=== PATIENT | female | born 1935 | race Caucasian/White ===

== ENCOUNTER 2023-08-20 20:06 | Inpatient (IN) | payer MEDICARE, BC, SELFPAY ==
[2023-08-20] VITALS (10 sets, daily range): BP systolic 54–143; BP diastolic 27–108; BMI 20.6
[2023-08-20 15:30] LABS: % Basophils 0.6 % (0-2); % Eosinophils 0.6 % (0-6); % Immature Granulocytes 0.4 % (0-0.5); % Lymphocytes 10.2 % (20.5-51.1); % Monocytes 7.5 % (1.7-9.3); % Neutrophils 80.7 % (42.2-75.2); Absolute Basophils 0.1 10^3/uL (0-0.2); Absolute Eosinophils 0.1 10^3/uL (0-0.7); Absolute Immature Granulocytes 0.1 10^3/uL (0-0.05); Absolute Lymphocytes 1.2 10^3/uL (1.2-3.4); Absolute Monocytes 0.9 10^3/uL (0.1-0.6); Absolute Neutrophils 9.4 10^3/uL (1.4-6.5); Hematocrit 26.7 % (37.0-47.0); Hemoglobin 8.6 g/dL (12.0-16.0); Mean Corp Hgb Conc. 32.2 g/dL (33.0-37.0); Mean Corpuscular Hgb 25.7 pg (27.0-31.0); Mean Corpuscular Volume 79.7 fL (81.0-99.0); Nucleated Red Blood Cells % 0 %; Red Blood Cell Count 3.35 10^6/uL (4.20-5.40); White Blood Cell Count 11.7 10^3/uL (4.8-10.8)
[2023-08-20 15:40] LABS: ALT (SGPT) 16 U/L (0-35); AST (SGOT) 19 U/L (14-36); Albumin 2.9 g/dl (3.5-5.0); Alkaline Phosphatase 112 U/L (38-126); Blood Urea Nitrogen 26 mg/dl (7-17); Carbon Dioxide 30 mmol/L (22-30); Chloride 103 mmol/L (98-107); Estimated Creatinine Clearance 37 ml/min; Glucose 121 mg/dl (70-99); Potassium 3.8 mmol/L (3.5-5.1); Sodium 135 mmol/L (135-145); Total Bilirubin 0.4 mg/dl (0.2-1.3); Total Protein 5.4 g/dl (6.3-8.2); eGFR 54.53
[2023-08-20 16:09] LABS: Lactic Acid 1.6 mmol/L (0.7-2.0)
--- NOTE | 2023-08-20 16:22 | ED.GENMED ---
History of Present Illness
General
Chief Complaint: Breathing Problem
Source: family
Exam Limitations: dementia
Time Seen by Provider: 08/20/23 16:08
Nursing documentation reviewed up to this point in time: agreed with
Travel History
Have you had any contact with someone who has COVID-19?: Unable to Answer
Do you have any symptoms of coronavirus? Fever > 100 degrees, chills, cough, shortness of breath, sore throat, loss of taste or smell, muscle aches, or headache?: Unable to Answer
History of Present Illness
History of Present Illness:
PT IS A 88 Y/O f WITH H/O severe alzheimers
daughter is primary historian
afib not anticoagulated
stroke
h/o aspiration pna
lung ca on keytruda
here with 2-3 days dec mental status, sleeping more, and now coughing more todya
pt has a chroni ccough from the keytruda
but last night sounded rattly in her chest
pt is not able to give any history
she also has h/o chronic constipation and had dark stool today
fever to 102 this am treated with tylenol
Past History
Past History
ED Past Medical History: CVA, GERD, HTN, Hypercholesterolemia, Psychiatric (Anxiety, Depression, ) and Other (Alzheimer's, PNA, Long QT, UTI, Anemia, )
ED Past Surgical History: Bowel resection (for Obstruction. Then again for adhesions,), Gynecological (OOpherectomy), Orthopedic (Left wrist ORIF 2017, Back surgery, Left meniscus repair, ), Tonsilectomy and Other (Left eye surgery, )
Social History
Tobacco: Former smoker
Alcohol: None
Drug: None
Personal:
Living: with family
Employment: Other
Family History
Family History: Hypertension
Review of Systems
Review of Systems
Allergies reviewed?: Yes
Unable to obtain full review of systems at this time due to: dementia
All Other Systems: Not applicable
Phy Exam
Physical Exam
Physical Exam:
GENERAL: Alert , in no apparent distress, pt is pulling at her sheets, seems globally confused;
HEAD: NCAT
EYE: pupils equal and reactive, no nystagmus, photophobia
NECK: Supple,full rom, nontender
ENT: o/p clr, mmm.
CARDIAC: Regular rate and rhythm . no edema
LUNGS: diminished, mild cough, no wheezing
ABDOMEN: Soft, without focal tenderness, no r/g, no cvat
black stool HEME POS
NEUROLOGICAL: awake and alert x 1, moving all extremites;
SKIN: Warm and dry, stage I decub sacral
MUSCULOSKELETAL: No edema, well perfused.
PSYCH: confused, unable toanswer questions; dementia
Scores
Heart Failure Risk
Heart Failure Risk Score: Not Applicable
Course
Orders/Labs/Results
Orders:
Orders
08/20/23 15:19
Complete Blood Count/With Diff Urgent
Comprehensive Metabolic Panel Urgent
Blood Culture Q30M
MONSERRAT Source: Blood/Venous
Specimen Description:
Comment: FROM 2 SEPARATE SITES
08/20/23 15:35
Lactic Acid Q4H
Comment: ON ICE, CANCEL 2ND ORDER IF FIRST LACTIC ACID LEVEL <2
Blood Culture Q30M
MONSERRAT Source: Blood/Venous
Specimen Description:
Comment: FROM 2 SEPARATE SITES
08/20/23 16:21
Acetaminophen [Tylenol Suspension] 500 mg PO NOW STA
08/20/23 16:23
CR Chest - 2 Views Urgent
Comment:
Reason For Exam: FEVER, COUGH, HYPOXIC
08/20/23 16:34
COVID-19 Antigen Urgent
Source: Nasal Swab
Influenza A+B Rapid Molecular Urgent
MONSERRAT Source: Nasal Swab
Specimen Description:
08/20/23 16:45
Pantoprazole 80 mg/100 ml Nss [Protonix] 80 mg in 100 ml IV Q10H
08/20/23 17:48
Azithromycin 500 mg/250 ml [Zithromax Infusion] 500 mg in 250 ml IV NOW
CefTRIAXone [Rocephin] 1,000 mg IV NOW STA
08/20/23 17:51
Urinalysis Reflex To Culture Urgent
Date Specimen was Collected: 08/20/23
Time Specimen was Collected: 17:35
Urine Microscopic Reflex Cult Urgent
Urine Culture Urgent
MONSERRAT Source: U
Specimen Description:
Date Specimen was Collected: 08/20/23
Time Specimen was Collected: 17:35
Abnormal Lab Results
08/20/23 08/20/23
15:19 17:51
WBC 11.7 H 10^3/uL
(4.8-10.8)
RBC 3.35 L 10^6/uL
(4.20-5.40)
Hgb 8.6 L g/dL
(12.0-16.0)
Hct 26.7 L %
(37.0-47.0)
MCV 79.7 L fL
(81.0-99.0)
MCH 25.7 L pg
(27.0-31.0)
MCHC 32.2 L g/dL
(33.0-37.0)
RDW 16.0 H %
(11.5-14.5)
Abs Immat Gran (auto) 0.1 H 10^3/uL
(0-0.05)
Absolute Neuts (auto) 9.4 H 10^3/uL
(1.4-6.5)
Absolute Monos (auto) 0.9 H 10^3/uL
(0.1-0.6)
Neutrophils % 80.7 H %
(42.2-75.2)
Lymphocytes % 10.2 L %
(20.5-51.1)
BUN 26 H mg/dl
(7-17)
Glucose 121 H mg/dl
(70-99)
Calcium 8.0 L mg/dl
(8.4-10.2)
Total Protein 5.4 L g/dl
(6.3-8.2)
Albumin 2.9 L g/dl
(3.5-5.0)
Ur Occult Blood Reflex Trace A
(Negative)
Urine Bilirubin 1+ A
(Negative)
Leukocyte Esterase Rfl 1+ A
(Negative)
Urine WBC (Reflex) 11-15 A /HPF
(0-5)
Urine Bacteria (Reflex) Few A
(Negative)
08/20/23 15:19
08/20/23 15:19
Vital Signs
Initial and Last Documented VS:
Initial Vital Signs
Temp Pulse Resp BP Pulse Ox
100.9 F H 66 21 110/45 90
08/20/23 15:09 08/20/23 15:09 08/20/23 15:09 08/20/23 15:09 08/20/23 15:09
Last Documented Vital Signs
Temp Pulse Resp BP Pulse Ox
100.9 F H 66 21 110/45 90
08/20/23 15:09 08/20/23 15:09 08/20/23 15:09 08/20/23 15:09 08/20/23 15:09
MDM/Problems Addressed
Differential Diagnosis Includes:
pneumonia, gi bleeding, flu, covid
MDM/Problems Addressed:
88 y/o F from home with daughter
pt has h/o aspiration pna
has had trouble with certain foods sometimes
but still eats a full diet
she was sleeping more the past few days then today had a worsneing acute on chronic cough with fever 102
dark stool
here pt is requiring o2, she had pulse ox at summer e87% on RA and doesn't usually use O2
is chronically demented
awake
occ cough
lungs dimiinshed
and rectal heme pos dark stool, 3 gram drop hg over the past few months and elevated BUN
will admit
*Critical Care Note
Total Time (30-74mins, 75-104mins- exclusive of procedures): Not Applicable
ED Attending Note
-
Portions of this chart may have been created with voice recognition software.� Occasional wrong word or��sound alike� substitutions may have occurred due to the inherent limitations of voice recognition software.
Discharge Plan
Departure
Patient Disposition: Admit
Date of Disposition: 08/20/23
Time of Disposition: 17:32
Admit to: Med/Surg
Presentation/result/management discussed w/ accepting MD/DO: Hospitalist
Condition: Fair
Covid-19: Negative COVID-19
Discharge Problem:
Anemia, Fever, GI bleed
Prescriptions:
No Action
quetiapine 25 mg Tablet
25 mg PO NOON
atorvastatin 40 mg Tablet
40 mg PO HS
amiodarone 200 mg Tablet
200 mg PO DAILY
metoprolol succinate 50 mg Tablet Extended Release 24 Hr
50 mg PO BID
sennosides-docusate sodium [Senna Plus] 8.6-50 mg Tablet
2 tab-cap PO BIDPRN PRN (Reason: Constipation)
methenamine hippurate 1 gram Tablet
1 g PO BID
pantoprazole 40 mg Tablet,Delayed Release (Dr/Ec)
40 mg PO BID
buspirone 10 mg Tablet
10 mg PO BID
gabapentin 300 mg Capsule
300 mg PO HS
aspirin 81 mg Tablet,Chewable
81 mg PO DAILY
bisacodyl [Gentle Laxative (bisacodyl)] 5 mg Tablet,Delayed Release (Dr/Ec)
5 mg PO BID
docusate sodium 100 mg Tablet
100 mg PO BID
qxnjzxxysgli-pesurxxt-hsrafb Tablet
1 tab PO DAILY
memantine 10 mg Tablet
10 mg PO BID
duloxetine 30 mg Capsule,Delayed Release(Dr/Ec)
30 mg PO BID
omega 0-nox-crg-fish oil [Fish Oil] 1,000 mg (120 mg-180 mg) Capsule
1 cap PO DAILY
melatonin 10 mg Tablet
20 mg PO DAILY
Caltrate 600 plus D 600 mg-20 mcg (800 unit) Tablet,Chewable
1 tab PO DAILY
PreserVision AREDS-2 250-90-40-1 mg Tablet,Chewable
1 tab PO BID
quetiapine 25 mg Tablet
50 mg PO HS Qty: 30 0RF
amlodipine 10 mg Tablet
10 mg PO DAILY Qty: 30 0RF
polyethylene glycol 3350 [HealthyLax] 17 gram Powder In Packet
17 g PO BID Qty: 30 0RF
Referrals:
Ulices Kong MD, Resident [Family Provider] -
Interventions
Interventions:
*Risk Screen - Suicide Last Done: 08/20/23 15:09
*General Assessment Last Done: 08/20/23 15:09
*Neglect/Abuse Screening Last Done: 08/20/23 15:09
ED- Fall Risk Assessment Last Done: 08/20/23 15:15
*ED COVID-19 Vaccine History Last Done: 08/20/23 15:09
ED- Cardiac Assessment Last Done: 08/20/23 16:22
ED- Pulmonary Assessment Last Done: 08/20/23 16:22
[2023-08-20] MEDS: TYLENOL SUSPENSION 500 MG PO (16:25)
[2023-08-20] MEDS: PROTONIX 100 IV (17:05)
[2023-08-20 17:20] LABS: COVID-19 Antigen Negative (Negative)
[2023-08-20 18:05] LABS: Urine Albumin Trace (Neg - Trace); Urine Bilirubin 1+ (Negative); Urine Character Clear (Clear); Urine Color Yellow; Urine Glucose Negative (Negative); Urine Ketone Negative (Negative); Urine Leukocyte 1+ (Negative); Urine Nitrite Negative (Negative); Urine Occult Blood Trace (Negative); Urine Specific Gravity 1.015 (<1.030); Urine Urobilinogen Negative (Neg - 1+)
[2023-08-20] MEDS: ROCEPHIN 1000 MG IV (18:06)
[2023-08-20] MEDS: ZITHROMAX INFUSION 250 IV (18:06)
[2023-08-20 18:17] LABS: Urine Bacteria Few (Negative); Urine Red Blood Cell 0-2 /HPF (0-2)
--- NOTE | 2023-08-20 19:32 | HPS.HSE ---
Addendum entered and electronically signed by Carrie Mckeon MD 08/20/23 23:46:
Suspected anaphylaxis. Several minutes into vancomycin dosing, patient developed red skin. She then became less responsive. BP went down to 54 systolic. O2 sat to 82 on 2 L. Unresponsive to sternal rub.
Vancomycin discontinued. Placed on NRB. Given 0.5 IM epinephrine. 1 L NSS bolus. 125 mg IV solumedrol and IV famotidine. Her BP started rising prior to getting the epinephrine. After a dose of epinephrine BP navin to 140 systolic. Held off
epinephrine gtt. She became alert and communicative as per her baseline.
Weaned off NRB. Transferred to ICU for close monitoring.
Original Note:
Family Physician
-
Family Physician: Ulices Kong MD, Resident
Chief Complaint
-
Cough lethargy and hypoxia
History of Present Illness
This is an 88-year-old female with past medical history significant for advanced Alzheimer's dementia, lung nodule on Keytruda, atrial fibrillation not on anticoagulation, GERD, chronic constipation, urinary retention and recurrent UTI presenting to
the emergency department from home via family with complaints of persistent cough, lethargy and a fever to 102 at home.
Patient is on Keytruda for lung nodule which was started about a year ago. She last received Keytruda 1 week ago had episode of diarrhea that resolved afterwards. This is a common pattern for her. She otherwise been tolerating diet well. She had
no nausea or vomiting. Over the last 3 days daughter reported that the patient become more pale. She had more cough that is wet sounding. She was found to have a fever today. She is also had more somnolence and lethargy. They noted no changes
in her color or or odor of her urine but reported a decrease in urine output. Discharge pulse oximetry and was reported to be in the 80s. Discussed this with primary care physician who recommended ED evaluation. Patient is essentially nonverbal
and unable to provide much history other than what family is provided.
Family reports that the patient has been on a chopped diet with thin liquids and has been tolerating this without as much aspiration as previously. But he did note that she has continued to aspirate small amounts.
On arrival in the emergency department she had a temperature of 100.9, pulse was in the mid 50s, blood pressure was 93/30 with a MAP of 54, oxygen saturation was mid 90s on 2 L. Chest x-ray with stable infrahilar masslike opacity as well as a mild
left basilar atelectasis and/or pneumonia. COVID is negative. Influenza testing is negative. Leukocytosis to 11.2, hemoglobin 8.6 which is down from 12 3 months ago. Chemistries notable for a bicarb of 30, a BUN of 26 and a creatinine of 1.0.
Urinalysis is positive with urine cultures pending.
Medical History
Past Medical History
Past Medical History: Reports Arrhythmia, Cancer, Dementia, HTN and Psychiatric
Past Surgical History: Reports None
Social History
Unable to obtain full social history at this time due to: Dementia
Tobacco: Non-smoker
Alcohol: None
Drug: None
Personal:
Living: With Family
Employment: Retired
Family History
Family History: Not pertinent
Allergies / Home Medications
Allergies reflects when Allergies were last updated in [employer].
Home Medications with original date entered in [employer]
Allergy/Medication List:
Allergies
Allergy/AdvReac Type Severity Reaction Status Date / Time
gabapentin Allergy see below Verified 05/28/22 15:28
lorazepam Allergy Unknown Verified 05/24/22 20:12
Home Medications
amiodarone 200 mg tablet 200 mg PO DAILY Arrhythmia 05/08/23
aspirin 81 mg chewable tablet 81 mg PO DAILY Blood Clot Prevention/Tx 05/08/23
atorvastatin 40 mg tablet 40 mg PO HS High Cholesterol 05/08/23
bisacodyl 5 mg tablet,delayed release (Gentle Laxative (bisacodyl)) 5 mg PO BID Constipation 05/08/23
buspirone 10 mg tablet 10 mg PO BID Mental Health/Anxiety 05/08/23
calcium carbonate 600 mg-vitamin D3 20 mcg (800 unit) chewable tablet (Caltrate 600 plus D) 1 tab PO DAILY Supplement 05/08/23
docusate sodium 100 mg tablet 100 mg PO BID Constipation 05/08/23
duloxetine 30 mg capsule,delayed release 30 mg PO BID Mental Health/Anxiety 05/08/23
gabapentin 300 mg capsule 300 mg PO HS Neurological Condition 05/08/23
melatonin 10 mg tablet 20 mg PO DAILY Sleep 05/08/23
memantine 10 mg tablet 10 mg PO BID Alzheimer's 05/08/23
methenamine hippurate 1 gram tablet 1 g PO BID Urinary Issue 05/08/23
metoprolol succinate 50 mg tablet,extended release 24 hr 50 mg PO BID Blood Pressure 05/08/23
fajrrmkjxzzb-jyioshrn-zqpjyo tablet 1 tab PO DAILY Supplement 05/08/23
omega 7-cvt-fbr-fish oil 1,000 mg (120 mg-180 mg) capsule (Fish Oil) 1 cap PO DAILY Supplement 05/08/23
pantoprazole 40 mg tablet,delayed release 40 mg PO BID Gastrointestinal Issue 05/08/23
quetiapine 25 mg tablet 25 mg PO NOON Mental Health/Anxiety 05/08/23
sennosides 8.6 mg-docusate sodium 50 mg tablet (Senna Plus) 2 tab-cap PO BIDPRN PRN Constipation 05/08/23
vit C 250 mg-E 90 mg-zinc 40 mg-copper 1 cm-zflwkq-vbcyzk chew tablet (PreserVision AREDS-2) 1 tab PO BID Supplement 05/08/23
amlodipine 10 mg tablet 10 mg PO DAILY #30 tabs 05/16/23
polyethylene glycol 3350 17 gram oral powder packet (HealthyLax) 17 g PO BID #30 ea 05/16/23
quetiapine 25 mg tablet 50 mg PO HS #30 tabs 05/16/23
Review of Systems
-
History Source: Family
Constitutional: Reports Fever, Fatigue and Sleep Disturbance
EENT: Reports Runny Nose
Respiratory: Reports Cough and Trouble Breathing
Cardiac: Reports No Symptoms
Abdomen/GI: Reports Black Stools
: Reports No Symptoms
Musculoskeletal: Reports No Symptoms
Skin: Reports No Symptoms
Neurological: Reports Weakness
Endocrine: Reports No Symptoms
Hematologic/Lymphatic: Reports No Symptoms
Psych: Reports Dementia
Physical Exam
Vital Signs
Vital Signs
Temp Pulse Resp BP Pulse Ox
100.9 F H 66 21 110/45 90
08/20/23 15:09 08/20/23 15:09 08/20/23 15:09 08/20/23 15:09 08/20/23 15:09
Physical Exam
General: Fever
HEENT: NormoCephalic, Anicteric, Atraumatic and Oxygen
Respiratory: Clear and Rales
Cardiac: S1/S2 and Bradycardia
Breast: Deferred by me
GI: Soft, Non Tender, Non Distended and Normal Bowel Sounds
Rectal: Hem Positive
Genito-urinary: Deferred by me
Musculoskeletal: No Clubbing, No Cyanosis and No Edema
Skin: Warm
Neuro: Awake and Oriented (None)
Hematologic/Lymphatic: No Lymphadenopathy
Psych: Apparent Dementia
Laboratory Results
-
08/20/23 15:19
08/20/23 15:19
Laboratory Results
Lactic Acid Cancelled 08/20/23 19:30
Total Bilirubin 0.4 mg/dl (0.2-1.3) 08/20/23 15:19
AST 19 U/L (14-36) 08/20/23 15:19
ALT 16 U/L (0-35) 08/20/23 15:19
Alkaline Phosphatase 112 U/L (38-126) 08/20/23 15:19
Data Reviewed
-
Diagnostic Radiology: Image Personally Visualized and interpreted and Report Reviewed by me
Lab Data: Labs Reviewed by me
Old Records: Reviewed
Impression/Plan
-
IMPRESSION:
PLAN:
1. Pneumonia - Hypoxia, fever and possible opacities suggestive of PNA but not definitive. Chronic cough due to aspiration and possibly due to Keytruda. Appears more wet sounding. Low respiratory drive with elevation in serum bicarb to 30. Awake
and mildly interactive. Given h/o ca, on chemo and ongoin aspiration high risk. Known urine culture with pseudomonas. Very poor prospect for intubation. Down trending BP. Negative COVID/FLu
- admit to IMU
- initiate more broad spectrum abx for now with Vancomycin loading and continued. Will start meropenem
- blood cultures
- obtain procalcitonin for now
- supportive care with supplemental oxygen
2. UTI - + U/A. H/O pseudomonas. Possible colonization. In setting of fever and soft bp with lethargy cannot rule out infection
- urine culture
- meropenem as above
- ID consultation
3. Anemia - Hgb 8.6, from 12. Heme positive dark stools. No anticoagulation but known h/o GERD
- PPI gtt started
- type and screen, consented, transfuse for Hgb < 7
- will bolus with additional fluids for now
- clear liquid diet
- hold aspirin
4. Hypotension - MAP 54. Baseline BP in the 120-130 / 50 - 60 range. Normal lactic acid
- tx for sepsis with abx as above
- bolus 1 L NS
- maintenance fluid
- peripheral levo to maintain MAP > 60 after iv fluid bolus
- hold amlodipine and beta blockade
5. Afib - Bradycardic.
- continue amiodarone daily as tolerated for now
DVT PPX with SCDs
After prolonged discussion patient is tentatively full code. To discuss code status changes further with family members. Ok for transfusion, abx, EGD/[place], pressors. Ok for intubation and CPR tentatively.
--- NOTE | 2023-08-20 19:56 | PHANOTE ---
08/20/2023, med rec tech, spoke to pt.'s daughter to obtain pt.'s med. history; per daughter, pt. takes Benzonatate 100 mg HS and Benzonatate 100 mg BIDPRN for cough; this med. is not in pt.'s pharmacy fill data or on [facility]; could not confirm it.
--- NOTE | 2023-08-20 20:03 | PHA.VAN.IN ---
Assessment
- Assessment
Renal Function: Appears elevated from baseline (05/11/2023 SCR 0.6)
Maximum Temperature: 100.9 F
Concomitant Antimicrobials: MEROPENEM
Plan
- Plan
Initial / Loading Dose: VANCO 1500 MG X1
Monitoring: RANDOM 08/20 @0600
MRSA Screen: Ordered per protocol
Pharmacokinetics Vancomycin I
- -
Patient Age: 88
Patient Sex: Female
Vancomycin Day #: 1
Indication: PULM
Requesting Provider: DR. VAZQUEZ
Height / Weight:
Height 5 ft 7 in
Actual Weight 59.5 kg
Pertinent Past Medical History: URINARY RETENTION, RECURRENT UTI, LUNG NODULE ON KEYTRUDA
- Vital Signs / Lab Results
Temp Pulse Resp BP Pulse Ox
100.9 F H 58 17 93/36 93
08/20/23 15:09 08/20/23 19:30 08/20/23 19:30 08/20/23 19:00 08/20/23 17:15
Lab Results - Hematology
08/20/23
15:19
WBC 11.7 H
Lab Results - Chemistry
08/20/23
15:19
BUN 26 H
Creatinine 1.0
Estimated Creat Clear 37
Albumin 2.9 L
08/20/23 08/20/23
15:35 19:30
Lactic Acid 1.6 Cancelled
Lab Results - Urine
08/20/23
17:51
Urine Nitrite (Reflex) Negative
Leukocyte Esterase Rfl 1+ A
Urine WBC (Reflex) 11-15 A
Ur Squamous Epith Cells 11-15
Urine Bacteria (Reflex) Few A
Microbiology Results
08/20/23 16:34 Influenza Types A & B (JAREK) - Final
Nasal Swab Negative for Influenza A & B, NAAT
Negative results must be combined with clinical observations
and patient history.
Nucleic Acid Amplification test (NAAT)performed on the
[employer] NOW platform.
[2023-08-20] MEDS: VANCOCIN 300 ML IV (22:04)
[2023-08-20] MEDS: VANCOCIN 300 MG IV (22:04)
[2023-08-20] MEDS: NSS 250 IV ×2 (22:05→22:31)
[2023-08-20] MEDS: ADRENALIN 0.5 MG IM (22:28)
[2023-08-20] MEDS: PEPCID 20 MG IV (22:32)
[2023-08-20] MEDS: SOLU-MEDROL PF 125 MG IV (22:36)
[2023-08-20] MEDS: NSS (PRESERVATIVE FREE) 8 ML IV (22:36)
[2023-08-20] MEDS: MERREM 1000 MG IV (22:46)
[2023-08-20] MEDS: STERILE WATER FOR INJECTION 20 ML IV (22:46)
[2023-08-20 23:41] LABS: Hematocrit 31.7 % (37.0-47.0); Hemoglobin 9.9 g/dL (12.0-16.0); Mean Corp Hgb Conc. 31.2 g/dL (33.0-37.0); Mean Corpuscular Hgb 25.4 pg (27.0-31.0); Mean Corpuscular Volume 81.5 fL (81.0-99.0); Nucleated Red Blood Cells % 0 %; Platelet Count 354 10^3/uL (130-400); Red Blood Cell Count 3.89 10^6/uL (4.20-5.40); Red Cell Dist. Width 16.3 % (11.5-14.5); White Blood Cell Count 29.7 10^3/uL (4.8-10.8)
[2023-08-21] VITALS (24 sets, daily range): BP systolic 94–147; BP diastolic 25–91; BMI 20.1
--- NOTE | 2023-08-21 | PTCARENOTE ---
pt adm to ICU from ER, eyes open, speech very garbled- baseline per ED handoff. SR HR 70s, LA IV x 2 patent. Protonix gtt infusing per work list. Sat verified in flowsheet to be 77% at this time- inaccurate, Sat mid to high 90s on 6LNC. CHG,
purewick placed. R buttocks with st 2- documented on work list. bed alarm on.
[2023-08-21] MEDS: MIRALAX PO ×3 (00:22→19:40)
[2023-08-21] MEDS: CYMBALTA DELAYED RELEASE PO (00:22)
[2023-08-21] MEDS: LIPITOR PO (00:22)
[2023-08-21] MEDS: DULCOLAX PO (00:22)
[2023-08-21] MEDS: D5/0.45%NACL 1000 IV ×2 (00:22→22:05)
[2023-08-21 00:24] LABS: Band Neutrophils 12 % (0-3); Lymphocytes 8 % (20-51); Monocytes 1 % (2-9); Platelets Checked Yes
[2023-08-21 00:25] LABS: Segmented Neutrophils 79 % (42-75)
[2023-08-21 00:26] LABS: Total Cells Counted 100; Toxic Granulation Occassional
[2023-08-21 00:27] LABS: Normal RBC Morphology No; Target Cells Occasional
[2023-08-21 00:29] LABS: Acanthocytes Occasional; Anisocytosis 1+; Ovalocytes 1+; Stomatocytes 1+; Tear Drop Red Blood Cells Occasional
[2023-08-21] MEDS: NAMENDA PO (00:45)
[2023-08-21] MEDS: SEROQUEL PO (00:45)
[2023-08-21] MEDS: PROTONIX 100 IV ×2 (04:36→14:23)
[2023-08-21 04:39] LABS: Hematocrit 27.6 % (37.0-47.0); Hemoglobin 8.4 g/dL (12.0-16.0); Mean Corp Hgb Conc. 30.4 g/dL (33.0-37.0); Mean Corpuscular Hgb 25.3 pg (27.0-31.0); Mean Corpuscular Volume 83.1 fL (81.0-99.0); Mean Platelet Volume 10.1 fL (7.4-10.4); Platelet Count 293 10^3/uL (130-400); Red Blood Cell Count 3.32 10^6/uL (4.20-5.40); Red Cell Dist. Width 15.9 % (11.5-14.5); White Blood Cell Count 28.6 10^3/uL (4.8-10.8)
--- NOTE | 2023-08-21 04:44 | PTCARENOTE ---
pt incontinent on arrival from ER at midnight, only small amt nicole urine out from purewick, bladder scanned for 134. no further changes
[2023-08-21 04:52] LABS: APTT 36.4 Sec (23.4-35.0); INR 1.24; PT 15.5 Sec (11.4-14.6)
[2023-08-21 04:55] LABS: Venous Blood Gas B.E. -0.8 mmol/L (-4 to +4); Venous Blood Gas HCO3 25.7 mmol/L (22-27); Venous Blood Gas O2 Sat % 63.2 %; Venous Blood Gas pCO2 51 mmHg (35-48); Venous Blood Gas pH 7.31 (7.32-7.43); Venous Blood Gas pO2 39 mmHg (30-50)
[2023-08-21 05:37] LABS: Procalcitonin 3.68 ng/ml (0.0-0.25)
[2023-08-21] MEDS: MERREM 500 MG IV ×3 (06:05→21:54)
[2023-08-21] MEDS: STERILE WATER FOR INJECTION 10 ML IV ×3 (06:05→21:55)
[2023-08-21 06:12] LABS: Blood Urea Nitrogen 30 mg/dl (7-17); Calcium 7.6 mg/dl (8.4-10.2); Carbon Dioxide 27 mmol/L (22-30); Chloride 107 mmol/L (98-107); Estimated Creatinine Clearance 33 ml/min; Glucose 141 mg/dl (70-99); Potassium 3.7 mmol/L (3.5-5.1); Sodium 137 mmol/L (135-145); eGFR 48.63
[2023-08-21 06:21] LABS: Vancomycin Random < 5.0 ug/ml
[2023-08-21] MEDS: CYMBALTA DELAYED RELEASE 30 MG PO ×2 (08:48→19:40)
[2023-08-21] MEDS: DULCOLAX 5 MG PO ×2 (08:48→19:40)
[2023-08-21] MEDS: PACERONE 200 MG PO (08:48)
[2023-08-21] MEDS: NAMENDA 10 MG PO ×2 (08:48→19:40)
--- NOTE | 2023-08-21 10:14 | CON.INTV ---
Consultation
Consultation Request
Date/Time Consultation Requested: 08/21/2023
Date/Time Consultation Performed: 08/21/2023
Requesting Provider: Dr. Mckeon
Performing Provider: Dr. Pascual Villa
Reason for Consultation: Septic shock/pneumonia
Medical History
-
History of Present Illness:
88-year-old woman with past medical history of advanced Alzheimer's dementia, metastatic lung cancer on Keytruda no details available, atrial fibrillation not on anticoagulation, GERD, chronic constipation, urinary retention, recurrent urinary tract
infections came to the emergency room from home with family with persistent cough, lethargy and a fever of 102 degrees at home.
Patient has been on cancer therapy for about a year. Did receive Keytruda last time 1 week ago and she usually gets diarrhea after that.
There is no reports of nausea, vomiting or swallowing problems.
Patient has been having 3 days of symptoms where he she appears more pale. Cough has been more productive. Patient developed some somnolence and lethargy with a fever.
Pulse oximetry was 80%.
Primary care physician recommended ED evaluation.
Patient is unable to provide history. Records reviewed.
Patient has a modified diet. Occasionally has aspiration events.
In the emergency room subsequently after having vancomycin, patient developed red skin, hypotension requiring epinephrine. Transferred to the critical care unit for close observation.
Past Medical History
Past Medical History: Other (See assessment and plan section+ good morning)
Social History
Tobacco: Non-smoker
Alcohol: None
Drug: None
Personal: Other
Living: With Family
Family History
Family History: Unable to Obtain (Dementia)
Allergies / Home Medications
Allergies
Allergy/AdvReac Type Severity Reaction Status Date / Time
gabapentin Allergy see below Verified 05/28/22 15:28
lorazepam Allergy Unknown Verified 05/24/22 20:12
Home Medications
Medication Instructions Recorded Confirmed Last Taken Type
amiodarone 200 mg tablet 200 mg PO DAILY Arrhythmia 05/08/23 08/20/23 08/20/23 History
atorvastatin 40 mg tablet 40 mg PO HS High Cholesterol 05/08/23 08/20/23 08/19/23 History
buspirone 10 mg tablet 10 mg PO BID Mental Health/Anxiety 05/08/23 08/20/23 08/20/23 History
docusate sodium 100 mg tablet 100 mg PO BID Constipation 05/08/23 08/20/23 08/20/23 History
duloxetine 30 mg capsule,delayed 30 mg PO BID Mental Health/Anxiety 05/08/23 08/20/23 08/20/23 History
release
gabapentin 300 mg capsule 300 mg PO HS Neurological Condition 05/08/23 08/20/23 08/19/23 History
melatonin 10 mg tablet 20 mg PO HS Sleep 05/08/23 08/20/23 08/19/23 History
memantine 10 mg tablet 10 mg PO BID Alzheimer's 05/08/23 08/20/23 08/20/23 History
methenamine hippurate 1 gram tablet 1 g PO BID Urinary Issue 05/08/23 08/20/23 08/20/23 History
metoprolol succinate 50 mg 50 mg PO BID Blood Pressure 05/08/23 08/20/23 08/20/23 History
tablet,extended release 24 hr
pantoprazole 40 mg tablet,delayed 40 mg PO BID Gastrointestinal Issue 05/08/23 08/20/23 08/20/23 History
release
quetiapine 25 mg tablet 25 mg PO DAILY@1500 PRN Mental 05/08/23 08/20/23 Unknown History
Health/Anxiety
sennosides 8.6 mg-docusate sodium 2 tab-cap PO BID 05/08/23 08/20/23 08/20/23 History
50 mg tablet (Senna Plus)
Lactobac no.2-Bifidobac no.1-S. 1 cap PO BID 08/20/23 08/20/23 Unknown History
thermo 112.5 billion cell capsule
(Visbiome)
amlodipine 10 mg tablet 10 mg PO HS 08/20/23 08/20/2308/18/24 History
aspirin 81 mg tablet,delayed 81 mg PO DAILY 08/20/23 08/20/23 08/20/23 History
release
benzonatate 100 mg capsule 100 mg PO BID PRN cough 08/20/23 Unknown History
benzonatate 100 mg capsule 100 mg PO HS 08/20/23 08/19/23 History
bisacodyl 10 mg rectal suppository 10 mg LA DAILY PRN constipation 08/20/23 08/20/23 Unknown History
bisacodyl 5 mg tablet,delayed 5 mg PO BIDPRN PRN constipation 08/20/23 08/20/23 Unknown History
release (Gentle Laxative
(bisacodyl))
fluticasone propionate 50 1 spray intranasal BID 08/20/23 08/20/23 08/19/23 History
mcg/actuation nasal
spray,suspension
loratadine 10 mg tablet 10 mg PO HS 08/20/23 08/20/23 08/19/23 History
pembrolizumab 25 mg/mL intravenous 0 mg IV Q3W 08/20/23 08/20/23 Unknown History
solution (Keytruda)
polyethylene glycol 3350 17 gram 17 g PO NOON 08/20/23 08/20/23 08/20/23 History
oral powder packet (HealthyLax)
quetiapine 25 mg tablet 75 mg PO HS 08/20/23 08/20/23 08/19/23 History
quetiapine 25 mg tablet 100 mg PO HSPRN PRN mental 08/20/23 08/20/23 Unknown History
health/anxiety
Review of Systems
-
Unable to Obtain full review of systems at this time due to: Dementia
Vitals / Labs / Diagnostic Testing
Vital Signs
Temp Pulse Resp BP Pulse Ox
98.3 F 61 15 110/73 100
08/21/23 03:06 08/21/23 09:15 08/21/23 09:15 08/21/23 08:00 08/21/23 07:00
Lab Data
08/21/23 04:30
08/21/23 05:37
Laboratory Results
08/21/23
04:30
PT 15.5 H
INR 1.24
APTT 36.4 H
Microbiology
08/20/23 16:34 Nasal Swab Influenza Types A & B (JAREK) - Final
Negative for Influenza A & B, NAAT
Negative results must be combined with clinical observations
and patient history.
Nucleic Acid Amplification test (NAAT)performed on the
[employer] platform.
Diagnostic Testing:
Physical Exam
-
HEENT: Normocephalic
Cardiovascular: S1/S2
Respiratory: Rales and Non-Labored Respirations
GI: Soft and Non Distended
Neurology: Awake, Alert, Other (Not following commands) and Other (Unable to provide history)
Skin: Warm
General: Respiratory Distress (None at rest)
Assessment
-
88-year-old woman with advanced dementia, metastatic lung cancer, swallowing dysfunction, admitted with fever and lethargy initially, after receiving vancomycin developed erythema as well as hypotension. Required low-dose epinephrine. Transferred
to the critical care unit for further observation 08/20/2023
Hypoxemic respiratory failure: Chest x-ray possible left lower lobe infiltrate-cannot rule out aspiration/right hilar mass chronic
COVID-negative
Influenza negative
Fever/leukocytosis likely sepsis
Lactic acid not elevated
Sepsis: Possible UTI
UA: WBCs 11-15/few bacteria. Leukocyte steroids 1+
Possible reaction to vancomycin: 'red man' syndrome versus anaphylaxis
Acute kidney injury creatinine of 1.1
Acute on chronic anemia-cannot rule out GI bleed
Inappropriate bradycardia-possibly due to amiodarone. Taking 200 mg daily.
EKG with sinus bradycardia: No ST-T wave elevation. No AV block.
Conditions present prior admission:
Metastatic stage IV lung cancer on Keytruda
Recurrent UTIs-prior Pseudomonas UTI.
Chronic anemia
Atrial fibrillation
Advanced Alzheimer's dementia
Hypertension
Assessment and plan:
Patient was transferred to the critical care unit after developing rash and hypotension after vancomycin infusion.
Patient with advanced Alzheimer's dementia, unable to provide history.
Required epinephrine-currently off vasopressors.
Hemodynamically improved.
Does not appear toxic or in distress this morning
-
Sepsis: Improving. Only low-grade fever overnight.
Unclear whether patient has a UTI-urine culture was sent
Chest x-ray: New left lower lobe infiltrate per suspect aspiration. Has a right hilar mass which is consistent with her lung cancer which is metastatic to bone.
Persistent leukocytosis
Not hypotensive
On meropenem
No further vancomycin due to possible 'red man' syndrome versus anaphylaxis.
Follow culture
Unable to produce a sputum
-
Aspiration precaution
Head of the bed elevation
-
Acute kidney injury creatinine 1.1: IV fluids-low rate.
Follow daily electrolytes
-
Inappropriate sinus bradycardia-suspect due to amiodarone. Event with sepsis and hypotension not tachycardic. Consider adjusting dose or discontinuing. I will defer to primary team.
May need to discuss with cardiology
-
Nebulizers as needed for secretion clearance
Unable to perform secretion clearance interventions due to dementia
Wean off oxygen, pulse ox 97% on 2 L.
Not bronchospastic on exam.
-
Acute on chronic anemia: Possible GI bleed. Heme positive stools.
Benign abdominal exam
No evidence for acute bleed
Protonix IV
Continue to follow H&H
Transfuse as necessary
-
N.p.o. for now-on maintenance IV fluids.
-
DVT prophylaxis-SCDs for now due to anemia.
-
Per discussion in the emergency room remains full code.
-
At this point we will transfer to telemetry.
Pulmonary will continue to follow briefly for mild hypoxemia and possible aspiration pneumonia.
--- NOTE | 2023-08-21 10:18 | W.PN.HOSP.TC ---
Today's Communication/Plan
-
AB
Assessment / Plan
Assessment / Plan
88-year-old female with dementia admitted because of hypoxia. Patient is nonverbal patient had a fever 100.9 and hypoxic. X-ray showed infrahilar mass opacity COVID and flu negative. She was admitted on vancomycin after which she had anaphylactic
reaction needed epinephrine IV fluids, Solu-Medrol and famotidine. She is admitted to ICU chest x-ray reviewed by me
Chest c-isi-[id number]/pneumonia left side. Stable right basilar infrahilar masslike opacity
Patient is awake and alert
Rales bilateral lungs
Abdomen soft and nontender
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 Moving all extremities.
Does not follow directions
# Anaphylactic reaction suspected to vancomycin-believe that this is an allergy to the list
# Acute hypoxic respiratory insufficiency secondary to pneumonia aspiration pneumonia likely
Speech evaluation noted
Dysphagia diet
Meropenem to be continued
Blood cultures pending
Sputum cultures if possible
Patient's daughter stated that since she had Keytruda associated cough they have been laying her flat because patient is not coughing much with that. This could have led to aspiration. They are aware that patient should be laying at 30 degrees
# Metastatic lung nodules-likely stage IV -on Keytruda now
Unclear if melanoma is the primary
Patient was seen by oncology May 2022 and hospice was recommended at that time.
Follows with Farshad Klein at [facility]
# Keytruda associated Cough -
It is possible it may be from Aspiration
# Leukocytosis likely secondary to steroids
# UTI
History of Pseudomonas
Meropenem as Pseudomonas was resistant to Zosyn last time
Await urine culture
Chronic UTIs on Hiprex
# Acute kidney injury-IV fluids gentle
# Anemia
Hemoglobin down to 8.6
Heme positive stools
Continue PPI
Type and screen and blood consent obtained in the ER
Clears
GI eval
# Paroxysmal atrial fibrillation
On amiodarone and metoprolol
Not on AC as OP
# Hypertension-continue amlodipine if pressure goes up
# Hyperlipidemia-continue atorvastatin
# Dementia with behavioral disturbances agitation confusion
On BuSpar, duloxetine, Namenda, Seroquel
# Chronic back pain/neuropathy/ambulatory dysfunction/scoliosis/spinal stenosis on gabapentin
# Stroke-ASA,Statin
Suspected to be cardioembolic however not on anticoagulation because of high risk
# Hemorrhoids/History of Small Bowel Resection with subsequent Ex Lap secondary to dehiscence of anastomosis
# Anxiety and depression-on BuSpar, duloxetine
# H/O PUD per Daughter.
# Hypoalbuminemia
# Ex-smoker
# DVT prophylaxis SCDS
# CODE STATUS addressed with the patient's daughter on the phone. They want to make the patient DNR. I think this is a very appropriate decision.
Medically complex
Anticipated Discharge: > 48 hours
Subjective/Interval History
-
Date of Service: August 21, 2023
Objective Data
-
Labs:
Laboratory Results
08/20/23 08/20/23 08/21/23
23:33 23:56 04:30
WBC 29.7 H Cancelled 28.6 H
Hgb 9.9 L Cancelled 8.4 L
Hct 31.7 L Cancelled 27.6 L
Plt Count 354 Cancelled 293
PT 15.5 H
INR 1.24
APTT 36.4 H
Sodium Cancelled
Potassium Cancelled
Chloride Cancelled
Carbon Dioxide Cancelled
BUN Cancelled
Creatinine Cancelled
Glucose Cancelled
Calcium Cancelled
08/21/23
05:37
WBC
Hgb
Hct
Plt Count
PT
INR
APTT
Sodium 137
Potassium 3.7
Chloride 107
Carbon Dioxide 27
BUN 30 H
Creatinine 1.1 H
Glucose 141 H
Calcium 7.6 L
Vital Signs:
Vital Signs
Temp Pulse Resp BP Pulse Ox
98.3 F 61 15 110/73 100
08/21/23 03:06 08/21/23 09:15 08/21/23 09:15 08/21/23 08:00 08/21/23 07:00
I&O
08/20/23 08/21/23 08/22/23
06:59 06:59 06:59
Intake Total 310 / 360 150 / 150
Balance 310 / 360 150 / 150
--- NOTE | 2023-08-21 10:45 | CON.ID ---
Consultation
-
Date/Time Consultation Requested: 08/20/2023, 2356
Date/Time Consultation Performed: 08/21/2023, 1045
Requesting Provider: Dr. Carrie Mckeon
Performing Provider: Dr. Fiona Antonio
Reason for Consultation: Pneumonia, possible UGIB
Chief Complaint / Past History
Chief Complaint
Weakness
History of Present Illness
History obtained from review of medical records as pt with dementia and unable to provide meaningful history. 88 year female with h/o lung cancer on keytruda, Afib not on anticoagulation, CVA who presented from home yesterday with several days of
cough, lethargy. Developed fever to 102 yesterday and therefore came to ED. In ED T= 100.9, WBC 11.7. Hypoxic. BP borderline low. CXR shows possible PNA. She received Vancomycin and during infusion developed Chanelle syndrome, bradycardic,
hypotension, and unresponsiveness. She received steroid with resolution of symptoms. She is currently on meropenem. She has history of aspiration. She is on special diet. Per record family noted still aspirating small amt of food. Pt reports
cough, nonproductive. No dysuria. Feeling better today.
Past History
Additional Past Medical History:
Dementia with Behavioral Disturbance
Lung Ca on Keytruda
Afib
CVA / TIA
Chronic Pain Syndrome / Chronic Back Pain
Spinal Stenosis / Scoliosis / DDD
GERD
Hypertension
Traumatic L Globe Injury
Small Bowel Resection Ex Lap secondary to dehiscence of anastomosis of above.
KIT
Allergy History:
gabapentin Allergy (Verified 05/28/22 15:28)
see below
lorazepam Allergy (Verified 05/24/22 20:12)
Unknown
Medications Reviewed: Yes
Current Antibiotics:
Meropenem 500mg IV q8h
Social History
Tobacco: Non-Smoker
Alcohol: None
Drug: None
Living: With Family
Family History
Family History: Not Pertinent
Review of Systems
Review of Systems
Unable to obtain due to dementia.
Vital Signs
Temp Pulse Resp BP Pulse Ox
98.3 F 61 15 110/73 100
08/21/23 03:06 08/21/23 09:15 08/21/23 09:15 08/21/23 08:00 08/21/23 07:00
Physical Exam
Physical Exam
Constitutional: No Acute Distress and Comfortable
Eyes: No Conjunctival Hemorrhage and Sclera Anicteric
Cardiovascular: Regular Rate and S1/S2
Pulmonary: Coarse (left base)
Gastrointestinal: Soft, Non Tender and Non Distended
Genito-Urinary: Negative CVA Tenderness
Extremities: Negative Edema
Neurological: Awake
Lab / Diagnostic Study Results
08/21/23 04:30
08/21/23 05:37
Abs Immat Gran (auto) 0.1 10^3/uL (0-0.05) H 08/20/23 15:19
Absolute Neuts (auto) 9.4 10^3/uL (1.4-6.5) H 08/20/23 15:19
Absolute Lymphs (auto) 1.2 10^3/uL (1.2-3.4) 08/20/23 15:19
Absolute Monos (auto) 0.9 10^3/uL (0.1-0.6) H 08/20/23 15:19
Absolute Basos (auto) 0.1 10^3/uL (0-0.2) 08/20/23 15:19
Total Counted 100 08/20/23 23:33
Immature Gran % 0.4 % (0-0.5) 08/20/23 15:19
Neutrophils % 80.7 % (42.2-75.2) H 08/20/23 15:19
Lymphocytes % 10.2 % (20.5-51.1) L 08/20/23 15:19
Monocytes % 7.5 % (1.7-9.3) 08/20/23 15:19
Eosinophils % 0.6 % (0-6) 08/20/23 15:19
Basophils % 0.6 % (0-2) 08/20/23 15:19
Abs Neuts (Manual) 27.0 10^3/uL (1.4-6.5) H 08/20/23 23:33
Segmented Neutrophils 79 % (42-75) H 08/20/23 23:33
Band Neutrophils 12 % (0-3) H 08/20/23 23:33
Lymphocytes (Manual) 8 % (20-51) L 08/20/23 23:33
PT 15.5 Sec (11.4-14.6) H 08/21/23 04:30
INR 1.24 08/21/23 04:30
Lactic Acid Cancelled 08/20/23 19:30
Procalcitonin 3.68 ng/ml (0.0-0.25) H* 08/21/23 04:30
Ur Squamous Epith Cells 11-15 /LPF (Few) 08/20/23 17:51
Microbiology Results
Micro:
08/20/23 22:09 Nasal Screen MRSA (PCR) - Final
Nose MRSA not detected - performed by PCR methodology.
08/20/23 15:19 Blood Culture - Pending
Blood/Venous
08/20/23 15:35 Blood Culture - Pending
Blood/Venous
08/20/23 17:51 Urine Culture - Pending
Urine
08/20/23 16:34 Influenza Types A & B (JAREK) - Final
Nasal Swab Negative for Influenza A & B, NAAT
Negative results must be combined with clinical observations
and patient history.
Nucleic Acid Amplification test (NAAT)performed on the
[employer] platform.
08/20/23 CXR: Mild left basilar atelectasis and/or pneumonia. Stable right basilar/infrahilar masslike opacity.
Assessment / Plan
# Suspect aspiration pneumonia.
- Continue meropenem for now.
-Aspiration precaution
# Fever
# Leukocytosis trended up, of note pt received steroid in ED.
- Follow blood cx's
- trend temp and wbc
# Possible IV vancomycin anaphylaxis
- Pt had tolerated IV vancomycin in the past.
[2023-08-21 11:01] LABS: Iron 25 ug/dl (37-170)
--- NOTE | 2023-08-21 11:07 | PTOTSP ---
ST Evaluation
Moderate-severe oral dysphagia; impaired task recognition, minimal PO acceptance overall. Cog-linguistic deficits; baseline advanced dementia
Pt received awake/alert confused and restless. Moving her blanket, bed remote and attempting to place them in her mouth. Consistent redirection required. HOB raised upright for PO trials of puree and thin liquids.
Demo reduced oral opening for bolus receipt, did not improve with attempt at self presentation with [id number] assist. Only accepting anterior tip of tsp. Piecemeal bolus transfers and swallow appears prompt of the minimal trials she was able to
take. No overt s/sx of aspiration observed.
Recommend
1. Initiate Puree (L4) and Thin liquids
2. Aspiration precautions and 1:1 feeding assist
3. Small bites, liquids by spoon or by cup sip, and slow rate
4. Crush meds into apple sauce
5. PATENT PROSECUTION ATTORNEY following
[2023-08-21 11:11] LABS: Percent Saturation 10 % (20-50); Total Iron Binding Capacity 248 ug/dl (265-497)
--- NOTE | 2023-08-21 11:42 | CON.GI ---
Consultation
-
Date/Time Consultation Requested: 08/20/23 9:11pm
Date/Time Consultation Performed: 08/21/23 11:42am
Requesting Provider: Carrie Jiménez
Performing Provider: Paul Thayer
Reason for Consultation: Heme positive stool
Medical History
Chief Complaint / HPI
Chief Complaint: Heme positive stool
History of Present Illness:
Patient is an 88-year-old female admitted with shortness of breath, fever, cough, lethargy. She is being admitted for sepsis, pneumonia. She has a history of metastatic lung cancer and is receiving Keytruda. Stools were noted to be heme positive
on admission and her hemoglobin is down from his baseline. She was 12 about 3 months ago and comes in with a hemoglobin of 8.7. Protonix drip was started. She has a history of GERD. History is limited as she is obtunded
Past Medical History
Past Medical History: Other (Dementia, metastatic lung CA, a fib)
Past Surgical History: Bowel Resection (for obstruction, adhesions) and Gynecological (Oophorectomy)
Social History
Tobacco: Former Smoker
Alcohol: None
Family History
Family History: Reviewed & Not Pertinent
Allergies / Home Medications
Allergy/AdvReac Type Severity Reaction Status Date / Time
gabapentin Allergy see below Verified 05/28/22 15:28
lorazepam Allergy Unknown Verified 05/24/22 20:12
Medication Instructions Recorded
amiodarone 200 mg tablet 200 mg PO DAILY Arrhythmia 05/08/23
atorvastatin 40 mg tablet 40 mg PO HS High Cholesterol 05/08/23
buspirone 10 mg tablet 10 mg PO BID Mental Health/Anxiety 05/08/23
docusate sodium 100 mg tablet 100 mg PO BID Constipation 05/08/23
duloxetine 30 mg capsule,delayed 30 mg PO BID Mental Health/Anxiety 05/08/23
release
gabapentin 300 mg capsule 300 mg PO HS Neurological Condition 05/08/23
melatonin 10 mg tablet 20 mg PO HS Sleep 05/08/23
memantine 10 mg tablet 10 mg PO BID Alzheimer's 05/08/23
methenamine hippurate 1 gram tablet 1 g PO BID Urinary Issue 05/08/23
metoprolol succinate 50 mg 50 mg PO BID Blood Pressure 05/08/23
tablet,extended release 24 hr
pantoprazole 40 mg tablet,delayed 40 mg PO BID Gastrointestinal Issue 05/08/23
release
quetiapine 25 mg tablet 25 mg PO DAILY@1500 PRN Mental 05/08/23
Health/Anxiety
sennosides 8.6 mg-docusate sodium 2 tab-cap PO BID 05/08/23
50 mg tablet (Senna Plus)
Lactobac no.2-Bifidobac no.1-S. 1 cap PO BID 08/20/23
thermo 112.5 billion cell capsule
(Visbiome)
amlodipine 10 mg tablet 10 mg PO HS 08/20/23
aspirin 81 mg tablet,delayed 81 mg PO DAILY 08/20/23
release
benzonatate 100 mg capsule 100 mg PO BID PRN cough 08/20/23
benzonatate 100 mg capsule 100 mg PO HS 08/20/23
bisacodyl 10 mg rectal suppository 10 mg WI DAILY PRN constipation 08/20/23
bisacodyl 5 mg tablet,delayed 5 mg PO BIDPRN PRN constipation 08/20/23
release (Gentle Laxative
(bisacodyl))
fluticasone propionate 50 1 spray intranasal BID 08/20/23
mcg/actuation nasal
spray,suspension
loratadine 10 mg tablet 10 mg PO HS 08/20/23
pembrolizumab 25 mg/mL intravenous 0 mg IV Q3W 08/20/23
solution (Keytruda)
polyethylene glycol 3350 17 gram 17 g PO NOON 08/20/23
oral powder packet (HealthyLax)
quetiapine 25 mg tablet 75 mg PO HS 08/20/23
quetiapine 25 mg tablet 100 mg PO HSPRN PRN mental 08/20/23
health/anxiety
Review of Systems
-
All other systems: A 12 pt ROS was Negative except as stated above in HPI
Vital Signs
Temp Pulse Resp BP Pulse Ox
97.9 F 62 12 110/73 97
08/21/23 08:00 08/21/23 11:13 08/21/23 11:13 08/21/23 08:00 08/21/23 11:13
Physical Exam
Exam
General: Other (confused)
HEENT: Atraumatic
GI: Soft, Non Tender and Non Distended
Skin: Warm and Dry
Results
WBC 28.6 10^3/uL (4.8-10.8) H 08/21/23 04:30
Hgb 8.4 g/dL (12.0-16.0) L 08/21/23 04:30
Hct 27.6 % (37.0-47.0) L 08/21/23 04:30
MCV 83.1 fL (81.0-99.0) 08/21/23 04:30
Plt Count 293 10^3/uL (130-400) 08/21/23 04:30
Absolute Neuts (auto) 9.4 10^3/uL (1.4-6.5) H 08/20/23 15:19
PT 15.5 Sec (11.4-14.6) H 08/21/23 04:30
INR 1.24 08/21/23 04:30
APTT 36.4 Sec (23.4-35.0) H 08/21/23 04:30
Sodium 137 mmol/L (135-145) 08/21/23 05:37
Potassium 3.7 mmol/L (3.5-5.1) 08/21/23 05:37
Chloride 107 mmol/L (98-107) 08/21/23 05:37
Carbon Dioxide 27 mmol/L (22-30) 08/21/23 05:37
BUN 30 mg/dl (7-17) H 08/21/23 05:37
Creatinine 1.1 mg/dL (0.6-1.0) H 08/21/23 05:37
Calcium 7.6 mg/dl (8.4-10.2) L 08/21/23 05:37
Total Bilirubin 0.4 mg/dl (0.2-1.3) 08/20/23 15:19
AST 19 U/L (14-36) 08/20/23 15:19
ALT 16 U/L (0-35) 08/20/23 15:19
Alkaline Phosphatase 112 U/L (38-126) 08/20/23 15:19
Diagnostic Image Results:
Prior GI Procedures:
EGD:
Colonoscopy:
Assessment / Plan
-
Summary: 88yo female presents with lethargy, cough, fever admitted for PNA sepsis. She has hx metastatic lung CA on Keytruda. Hgb 8.6 on admission down from 10.5 last May. Stool dark heme positive on admission. Hx GERD
Impression:
Sepsis
PNA
Heme positive anemia
Metastatic lung CA on Keytruda
Recommendations:
Continue protonix gtt
Trend Hgb
No evidence of active bleeding at this time. Hold off on EGD given PNA/sepsis
Will follow for active bleeding
-
-
Thank you for consultation and allowing me to participate in the patient's care. Please call the national sales consultant GI physician during the after hours with any questions or concerns.
[2023-08-21 11:51] LABS: TSH 2.36 uIU/ml (0.47-4.68)
[2023-08-21 11:56] LABS: Ferritin 28.3 ng/ml (11.1-264.0)
[2023-08-21 12:10] LABS: Vitamin B12 717 pg/ml (239-931)
--- NOTE | 2023-08-21 12:59 | PTCARENOTE ---
Pt's daughter at bedside, updated. Son also updated via phone. Pt for transfer to tele. O2 down to 2LNC, pox 96%.
--- NOTE | 2023-08-21 15:59 | CHAP ---
Sarah's devoted daughter, Fang, was at her side when I came, and she welcomed me. Sarah seemed calm and peaceful. We prayed tori 23 together, and asked God's blessings. A prayer blanket was provided.
--- NOTE | 2023-08-21 16:11 | CM ---
Patient with Hx Alzheimer's dementia with Dx PNA, UTI, anemia, A fib. O2 2L. Receiving IVF, IV Abx. PT & OT Evals pending.
Spoke with patient's daughter BRITTNEY Cho;
the patient resides with her daughter Marquis, son in law and son Manjit (also POA) in a one story house with loft, and ramp access.
The patient is confused at baseline and unable to do any task independently.
She is assisted with ADLs and ambulatory with DOCUMENTATION COORDINATOR.
DME - the patient sleeps in a hospital bed
She uses a w/c when she goes out shopping with the family.
Other DME - rollator, w/c, shower chair
Prior [facility]
Prior [facility] and [facility].
PCP- Ulices Kong
Pharmacy - [facility]
Marquis states that the family feels that they would like the patient to return home with [facility]. They do not think she would benefit from SNF for rehab any longer due to her advanced dementia.
CM following for d/c needs.
Plan follow up after PT/OT Evals with probable referral for VN.
[2023-08-21] MEDS: LIPITOR 40 MG PO (21:47)
[2023-08-21] MEDS: SEROQUEL 50 MG PO (21:47)
[2023-08-22] VITALS (7 sets, daily range): BP systolic 141–160; BP diastolic 62–80; PULSE 81; O2SAT 98; BMI 20.2
[2023-08-22] MEDS: PROTONIX 100 IV ×3 (00:11→23:29)
--- NOTE | 2023-08-22 04:42 | PTCARENOTE ---
Pt with black BM- in for CBC this AM.
[2023-08-22] MEDS: MERREM 500 MG IV ×3 (06:13→23:30)
[2023-08-22] MEDS: STERILE WATER FOR INJECTION 10 ML IV ×3 (06:13→23:30)
[2023-08-22 08:43] LABS: Hematocrit 25.8 % (37.0-47.0); Mean Corpuscular Hgb 25.2 pg (27.0-31.0); Mean Corpuscular Volume 81.4 fL (81.0-99.0); Mean Platelet Volume 12.1 fL (7.4-10.4); Platelet Count 213 10^3/uL (130-400); Red Blood Cell Count 3.17 10^6/uL (4.20-5.40); Red Cell Dist. Width 15.9 % (11.5-14.5); White Blood Cell Count 15.6 10^3/uL (4.8-10.8)
[2023-08-22 08:56] LABS: Blood Urea Nitrogen 23 mg/dl (7-17); Calcium 8.1 mg/dl (8.4-10.2); Carbon Dioxide 29 mmol/L (22-30); Chloride 106 mmol/L (98-107); Estimated Creatinine Clearance 46 ml/min; Glucose 98 mg/dl (70-99); Potassium 3.7 mmol/L (3.5-5.1); Sodium 136 mmol/L (135-145); eGFR > 60.00
--- NOTE | 2023-08-22 09:12 | W.PN.PUL3 ---
Today's Communication / Plan
-
Hemodynamically improved, afebrile
Patient without cough on command
Remains on antibiotics
Protonix therapy, follow hemoglobin
Aspiration precautions
DNR status noted
We will sign off. Please call with questions
Assessment
-
88-year-old woman with advanced dementia, metastatic lung cancer, swallowing dysfunction, admitted with fever and lethargy initially, after receiving vancomycin developed erythema as well as hypotension.� Required low-dose epinephrine.� Transferred
to the critical care unit for further observation 08/20/2023
Hypoxemic respiratory failure: Chest x-ray possible left lower lobe infiltrate-cannot rule out aspiration/right hilar mass chronic
COVID-negative
Influenza negative
Fever/leukocytosis likely sepsis
Lactic acid not elevated
Sepsis: Possible UTI
UA: WBCs 11-15/few bacteria.� Leukocyte steroids 1+
Possible reaction to vancomycin: 'red man' syndrome versus anaphylaxis
Acute kidney injury creatinine of 1.1
Acute on chronic anemia-cannot rule out GI bleed
Inappropriate bradycardia-possibly due to amiodarone.� Taking 200 mg daily.
EKG with sinus bradycardia: No ST-T wave elevation.� No AV block.
Conditions present prior admission:
Metastatic stage IV lung cancer on Keytruda
Recurrent UTIs-prior Pseudomonas UTI.
Chronic anemia
Atrial fibrillation
Advanced Alzheimer's dementia
Hypertension
Assessment and plan:
At this time, patient appears to be comfortable
Advanced dementia, difficult to obtain history
Not taking deep breaths during exam but appears comfortable, on room air
Blood pressures improved, remains afebrile
Leukocytosis improving
Moving forward
continue with supportive care
Chest x-ray 08/20/2023 reviewed by myself reveals possible left patchy pneumonia
Also has right hilar mass
This is confirmed per abdominal imaging 05/07/2023, incompletely imaged but suspicious for malignancy. There is also a 2 cm splenic lesion, numerous bony metastatic disease
Leukocytosis noted, slowly improving
Remains on antibiotics, meropenem
No further vancomycin due to possible 'red man' syndrome versus anaphylaxis.
Follow culture
Unable to produce a sputum
Aspiration precaution
Head of the bed elevation
Follow creatinine, follow hemodynamics
Amiodarone therapy noted
Nebulizers as needed for secretion clearance
Unable to perform secretion clearance interventions due to dementia
Does not cough on command
Wean off oxygen, pulse ox 97% on 2 L.
Not bronchospastic on exam.
DVT prophylaxis-SCDs for now due to anemia.
GI prophylaxis: Protonix
CODE STATUS now DNR
We will sign off. Please call with questions
Subjective Data
-
Date of Service:
Date of Service: August 22, 2023
Subjective:
Patient is awake, unable to answer questions. Answers with random words. Appears comfortable. Following commands, generally weak
Objective Data
Data Reviewed
Vital Signs / I&O / Oxygen:
Vital Signs
Temp Pulse Resp BP Pulse Ox
97.7 F 75 18 150/66 97
08/22/23 07:20 08/22/23 07:20 08/22/23 07:20 08/22/23 07:20 08/22/23 07:20
Intake and Output
08/21/23 08/22/23 08/23/23
06:59 06:59 06:59
Intake Total 310 / 360 700 / 700
Output Total 550 / 550
Balance 310 / 360 150 / 150
SaO2 97
Nasal Cannula flow liters per 2
minute
Physical Exam
General: Comfortable
HEENT: Normocephalic and Anicteric
Cardiovascular: S1-S2, Regular Rhythm, Murmur (n), Rub (n) and Peripheral Edema (n)
Respiratory: Wheeze (n), Crackles (n), Rhonchi (n) and Other (Patient is not taking appropriate breaths for exam)
GI: Soft, Non Distended and Non Tender
Neurology: Awake, Alert and Non Verbal (Random words, does follow commands, moves all extremities)
Skin: Cyanosis (n), Jaundice (n) and Rash (n)
Labs/Micro/Reports
Lab Data
08/22/23 07:26
08/22/23 07:26
Microbiology
08/20/23 15:35 Blood/Venous Blood Culture - Preliminary
No Growth in 24 hours- Final report to follow
08/20/23 15:19 Blood/Venous Blood Culture - Preliminary
No Growth in 24 hours- Final report to follow
08/20/23 22:09 Nose Nasal Screen MRSA (PCR) - Final
MRSA not detected - performed by PCR methodology.
08/20/23 16:34 Nasal Swab Influenza Types A & B (JAREK) - Final
Negative for Influenza A & B, NAAT
Negative results must be combined with clinical observations
and patient history.
Nucleic Acid Amplification test (NAAT)performed on the
[employer] platform.
[2023-08-22] MEDS: CYMBALTA DELAYED RELEASE 30 MG PO ×2 (10:38→20:13)
[2023-08-22] MEDS: NAMENDA 10 MG PO ×2 (10:38→20:12)
[2023-08-22] MEDS: MIRALAX 17 GRAMS PO (10:38)
[2023-08-22] MEDS: DULCOLAX 5 MG PO (10:38)
[2023-08-22] MEDS: PACERONE 200 MG PO (10:39)
--- NOTE | 2023-08-22 10:47 | W.PN.GI.CBS2 ---
Addendum entered and electronically signed by Paul Thayer MD 08/22/23 11:53:
I saw and examined the patient.
The TIRE SPOTTER or PA's note was reviewed and I agree with the note.
Comment: Passed dark stool overnight
ABD soft NT
REC:
Hgb down to 8.0 and passed dark stool
Still would like to avoid EGD unless more active bleeding given PNA, sepsis, advanced age
Continue protonix gtt
Monitor BM and Hgb
Original Note:
Today's Communication / Plan
-
Continue PPI gtt
Trend Hgb
Assessment / Plan
-
Summary: 88yo female presents with lethargy, cough, fever admitted for PNA sepsis. She has hx metastatic lung CA on Keytruda. Hgb 8.6 on admission down from 10.5 last May. Stool dark heme positive on admission. Hx GERD. Hemoglobin now 8.
Vital signs stable. Patient ate solid meal this am. Discussed with her daughter Marquis Carpenter ([phone]) she states her Mother has ulcers 'in her 30's'. She also states that recently they have been crushing her ASA and giving it to her. She
noticed solid black stool the day prior to admission. She denies any N/V. Prior to that stools light brown. We did discuss if EGD needed DNR would need to be reversed. Patient ate solid meal today. No signs of distress and with metastatic lung
CA/PNA and sepsis. Would like to hold off for now and address as admission progresses.
Impression:
Sepsis
PNA
Heme positive anemia, currently with black stools.
Metastatic lung CA on Keytruda
Recommendations:
Continue protonix gtt at this time
Trend Hgb.
Hold off on EGD given PNA/sepsis for now.
Daughter Marquis Carpenter [phone]
Will follow for active bleeding
Subjective
Subjective
Date of Service: August 22, 2023
Sitting up in bed, just finished solid breakfast. Patient speaking however has a history of expressive aphasia and dementia. Per RN patient had black stool overnight. Hemoglobin is currently 8.0 down from 8.6 on arrival. She has not received any
blood products. Patient's vital signs are stable. Continues on Protonix drip. She also continues on meropenem for sepsis.
Objective
Data Reviewed
Laboratory Data:
Laboratory Results
08/22/23 07:26
08/22/23 07:26
Laboratory Results
PT 15.5 Sec (11.4-14.6) H 08/21/23 04:30
INR 1.24 08/21/23 04:30
APTT 36.4 Sec (23.4-35.0) H 08/21/23 04:30
Total Bilirubin 0.4 mg/dl (0.2-1.3) 08/20/23 15:19
AST 19 U/L (14-36) 08/20/23 15:19
ALT 16 U/L (0-35) 08/20/23 15:19
Alkaline Phosphatase 112 U/L (38-126) 08/20/23 15:19
Vital Signs and I&O:
Vital Signs
Temp Pulse Resp BP Pulse Ox
97.7 F 75 18 150/66 97
08/22/23 07:20 08/22/23 07:20 08/22/23 07:20 08/22/23 07:20 08/22/23 07:20
I&O
08/21/23 08/22/23 08/23/23
06:59 06:59 06:59
Intake Total 310 / 360 700 / 700
Output Total 550 / 550
Balance 310 / 360 150 / 150
Physical Exam
Physical Exam
HEENT: Anicteric
Cardiology: Normal Sinus Rhythm
Pulmonary: Clear (anterior)
GI: Soft, Non Distended, Non Tender and Normal Bowel Sounds
Neuro: Other (Patient with expressive aphasia dementia)
--- NOTE | 2023-08-22 11:34 | W.PN.ID1 ---
Date of Service
Date of Service: August 22, 2023
Today's Communication
Continue meropenem for now.
Assessment / Plan
# Fever- resolving
# leukocytosis - trending down
# Suspect aspiration pneumonia.
-blood cx's neg to date
-Ucx pending
- Continue meropenem (d3) for now.
-Aspiration precaution
# Possible IV vancomycin anaphylaxis
- Of note, Pt had tolerated IV vancomycin in the past.
#Additional Past Medical History:
Dementia with Behavioral Disturbance
Lung Ca on Keytruda
Afib
CVA / TIA
Chronic Pain Syndrome / Chronic Back Pain
Spinal Stenosis / Scoliosis / DDD
GERD
Hypertension
Traumatic L Globe Injury
Small Bowel Resection Ex Lap secondary to dehiscence of anastomosis of above.
KIT
Chief Complaint
-: Pneumonia
Subjective / Review of Systems
Dementia
Vital Signs / Physical Exam
Vital Signs
Vital Signs
Temp Pulse Resp BP Pulse Ox
97.7 F 75 18 150/66 97
08/22/23 07:20 08/22/23 07:20 08/22/23 07:20 08/22/23 07:20 08/22/23 07:20
Physical Exam
Constitutional: No Acute Distress
Cardiovascular: Regular Rate and S1/S2
Pulmonary: Clear (anteriorly)
Gastrointestinal: Soft, Non Tender and Non Distended
Neurological: Awake and Alert
Objective Data
Lab Data
Lab Results
08/22/23 07:26
08/22/23 07:26
PT 15.5 Sec (11.4-14.6) H 08/21/23 04:30
INR 1.24 08/21/23 04:30
APTT 36.4 Sec (23.4-35.0) H 08/21/23 04:30
Estimated Creat Clear 46 ml/min 08/22/23 07:26
Lactic Acid Cancelled 08/20/23 19:30
Total Bilirubin 0.4 mg/dl (0.2-1.3) 08/20/23 15:19
AST 19 U/L (14-36) 08/20/23 15:19
ALT 16 U/L (0-35) 08/20/23 15:19
Alkaline Phosphatase 112 U/L (38-126) 08/20/23 15:19
Most recent labs reviewed.
Micro Results:
08/20/23 17:51 Urine Culture - Preliminary
Urine
08/20/23 15:35 Blood Culture - Preliminary
Blood/Venous No Growth in 24 hours- Final report to follow
08/20/23 15:19 Blood Culture - Preliminary
Blood/Venous No Growth in 24 hours- Final report to follow
08/20/23 22:09 Nasal Screen MRSA (PCR) - Final
Nose MRSA not detected - performed by PCR methodology.
08/20/23 16:34 Influenza Types A & B (JAREK) - Final
Nasal Swab Negative for Influenza A & B, NAAT
Negative results must be combined with clinical observations
and patient history.
Nucleic Acid Amplification test (NAAT)performed on the
[employer] platform.
08/20/23 CXR: Mild left basilar atelectasis and/or pneumonia. Stable right basilar/infrahilar masslike opacity.
--- NOTE | 2023-08-22 11:54 | W.PN.HOSP.TC ---
Addendum entered and electronically signed by Usha Larkin MD 08/23/23 20:16:
acute hypoxic resp failure on admission
Original Note:
Today's Communication/Plan
-
VSE
Gentle IVF
AB
Assessment / Plan
Assessment / Plan
88-year-old female with dementia admitted because of hypoxia. Patient is nonverbal patient had a fever 100.9 and hypoxic. X-ray showed infrahilar mass opacity COVID and flu negative. She was admitted on vancomycin after which she had anaphylactic
reaction needed epinephrine IV fluids, Solu-Medrol and famotidine. She is admitted to ICU chest x-ray reviewed by me
Chest p-prd-yiydavavywn/pneumonia left side. Stable right basilar infrahilar masslike opacity
Patient is awake and alert, not following directions
Rales bilateral lungs
Abdomen soft and nontender
VIDEO ENGINEER-very confused she answers something else for your questions. Moving all extremities.
Does not follow directions
# Anaphylactic reaction suspected to vancomycin-added to allergy list
# Acute hypoxic respiratory insufficiency secondary to pneumonia aspiration pneumonia likely
Speech evaluation noted
Dysphagia diet
Meropenem to be continued
Blood cultures pending
Sputum cultures if possible
Patient's daughter stated that since she had Keytruda associated cough they have been laying her flat because patient is not coughing much with that. This could have led to aspiration. They are aware that patient should be laying at 30 degrees
VSE today
# Metastatic lung nodules-likely stage IV -on Keytruda now
Unclear if melanoma is the primary
Patient was seen by oncology May 2022 and hospice was recommended at that time.
Follows with Farshad Klein at [facility]- records requested.
# Keytruda associated Cough -
It is possible it may be from Aspiration
# Leukocytosis likely secondary to steroids
# UTI
History of Pseudomonas
Meropenem as Pseudomonas was resistant to Zosyn last time
Await urine culture
Chronic UTIs on Hiprex as OP
# Acute kidney injury-IV fluids gentle
Poor PO intake
# Anemia
Chronic and also from sub acute blood loss
Hemoglobin down to 8.0
Heme positive stools
Continue PPI
Type and screen and blood consent obtained in the ER
Clears
FREDA
Will give IV iron.
GI eval noted
No plan for EGD
# Hypertension-continue amlodipine and metoprolol

# Paroxysmal atrial fibrillation
On amiodarone and metoprolol
Not on AC as OP
# Hyperlipidemia-continue atorvastatin
# Dementia with behavioral disturbances agitation confusion
On BuSpar, duloxetine, Namenda, Seroquel
# Chronic back pain/neuropathy/ambulatory dysfunction/scoliosis/spinal stenosis on gabapentin
# Stroke-ASA,Statin
Suspected to be cardioembolic however not on anticoagulation because of high risk
# Hemorrhoids/History of Small Bowel Resection with subsequent Ex Lap secondary to dehiscence of anastomosis
# Anxiety and depression-on BuSpar, duloxetine,Seroquel restarted
# H/O PUD per Daughter.
# Hypoalbuminemia
# Ex-smoker
# DVT prophylaxis SCDS
# CODE STATUS addressed with the patient's daughter .Patient is DNR. I think this is a very appropriate decision.
Per daughter son is also aware and in agreement with DNR.
Medically complex
D/W Daughter at bed side
D/W RN
Medically complex
Anticipated Discharge: 24 - 48 hours
Subjective/Interval History
-
Date of Service: August 22, 2023
Objective Data
-
Labs:
Laboratory Results
08/22/23
07:26
WBC 15.6 H
Hgb 8.0 L
Hct 25.8 L
Plt Count 213 D
Sodium 136
Potassium 3.7
Chloride 106
Carbon Dioxide 29
BUN 23 H
Creatinine 0.8
Glucose 98
Calcium 8.1 L
Vital Signs:
Vital Signs
Temp Pulse Resp BP Pulse Ox
97.7 F 76 18 155/77 98
08/22/23 11:05 08/22/23 11:05 08/22/23 11:05 08/22/23 11:05 08/22/23 11:05
I&O
08/21/23 08/22/23 08/23/23
06:59 06:59 06:59
Intake Total 310 / 360 700 / 700
Output Total 550 / 550
Balance 310 / 360 150 / 150
[2023-08-22] MEDS: BUSPAR 10 MG PO ×2 (12:52→20:11)
[2023-08-22] MEDS: SEROQUEL 25 MG PO (12:52)
[2023-08-22] MEDS: TOPROL XL 50 MG PO (12:53)
--- NOTE | 2023-08-22 14:26 | PTOTSP ---
Video Swallow Examination
Summary: Patient presents with at least mild oral and WFL-mild pharyngeal stage of swallowing. There was transient laryngeal penetration of thin liquids more frequently than mildly thick liquids but no aspiration. Etiology of swallowing is felt
to be due to dementia and prior CVA. Please see patient care note for full details of penetration/aspiration and swallowing physiology.
Recommend:
1. IDDSI Level 6 (Soft and Bite Sized), IDDSI Level 0 (Thin Liquids)
2. Medications � crushed (if medically cleared) in puree (applesauce)
3. FULL supervision and assistance
4. Strategies: small single sips/bites, slow rate, ensure patient clears oral cavity before next sip/bite, reflux precautions
5. Dysphagia therapy warranted for further family education and for therapeutic assessment of diet level.
[2023-08-22] MEDS: FERRLECIT 110 MG IV (14:52)
[2023-08-22] MEDS: COLACE LIQUID 100 MG PO (20:12)
[2023-08-22] MEDS: VISBIOME 1 CAP PO (20:13)
[2023-08-22] MEDS: TOPROL XL PO ×2 (20:13→20:36)
[2023-08-22] MEDS: MIRALAX PO ×2 (20:16→20:35)
[2023-08-22] MEDS: NORVASC 10 MG PO (22:35)
[2023-08-22] MEDS: LIPITOR PO (23:26)
[2023-08-22] MEDS: NEURONTIN PO (23:26)
[2023-08-22] MEDS: CLARITIN PO (23:26)
[2023-08-22] MEDS: SENNA SYRUP PO (23:26)
[2023-08-22] MEDS: MELATONIN PO (23:26)
[2023-08-22] MEDS: SEROQUEL PO (23:27)
--- NOTE | 2023-08-23 00:56 | PTCARENOTE ---
Pt. was very uncooperative with PM med pass. Most 20:00 medications were crushed, given with applesauce, but took many attempts. Some medications that were unable to be crushed (toprol XL) refused by pt. If pt. had medications in mouth, pt. would
spit them out or pocket medications in mouth. Non-IV medications scheduled to be given @ 2200 were unable to be given. Pt. continued refusing medications. Multiple attempts made, multiple RN's attempted the same, but pt. continued to refuse. BEBO
notified. Spoke to son Manjit on phone. Manjit able to confirm that at times his mother has and will refuse all medications. Pt. is resting comfortably with call light within reach.
--- NOTE | 2023-08-23 01:54 | VATNOTE ---
08/22 144
Paged by PCN for swelling and possible infiltrate of patients IV. Patient with edema to posterior left forearm from wrist to elbow. Patient does not react when swelling is touched by this RN, does not appear to be causing patient pain. Both of
the patients IVs were in the left lower arm. Infiltrate looks to be the left wrist IV, this IV was discontinued. Spoke to PCN and patient is a difficult stick and needs 2 IVs. Right cephalic 22 IV flushed without difficulty and left in place at
this time, due to swelling PCN will avoid using that IV at this time and use the 2 new IVs that were started in patients right arm. No-No applied to help prevent patient from pulling IVs out. PCN will elevate patients arm and continue to monitor.
[2023-08-23 03:18] VITALS: BP 163/72
[2023-08-23] MEDS: MERREM 500 MG IV ×3 (05:59→21:00)
[2023-08-23] MEDS: STERILE WATER FOR INJECTION 10 ML IV ×3 (05:59→21:00)
[2023-08-23] MEDS: D5/0.45%NACL 1000 IV ×2 (06:23→06:27)
[2023-08-23 06:46] LABS: Vitamin D, 25-OH*** 25.5 ng/mL (30-80)
[2023-08-23 07:15] VITALS: BP 162/73
[2023-08-23 08:17] LABS: Hematocrit 30.8 % (37.0-47.0); Hemoglobin 9.4 g/dL (12.0-16.0); Mean Corp Hgb Conc. 30.5 g/dL (33.0-37.0); Mean Corpuscular Hgb 24.7 pg (27.0-31.0); Mean Corpuscular Volume 81.1 fL (81.0-99.0); Mean Platelet Volume 10.8 fL (7.4-10.4); Platelet Count 342 10^3/uL (130-400); Red Cell Dist. Width 15.8 % (11.5-14.5); White Blood Cell Count 13.3 10^3/uL (4.8-10.8)
[2023-08-23 08:29] LABS: Blood Urea Nitrogen 14 mg/dl (7-17); Calcium 8.4 mg/dl (8.4-10.2); Carbon Dioxide 31 mmol/L (22-30); Chloride 103 mmol/L (98-107); Estimated Creatinine Clearance 61 ml/min; Glucose 93 mg/dl (70-99); Potassium 3.5 mmol/L (3.5-5.1); Sodium 136 mmol/L (135-145); eGFR > 60.00
[2023-08-23] MEDS: PROTONIX 100 IV ×2 (08:46→18:38)
[2023-08-23] MEDS: COLACE LIQUID PO ×2 (08:53→20:30)
[2023-08-23] MEDS: MIRALAX PO ×2 (08:53→20:30)
[2023-08-23] MEDS: TOPROL XL PO ×3 (08:54→20:52)
[2023-08-23] MEDS: VISBIOME 1 CAP PO ×2 (08:54→20:33)
[2023-08-23] MEDS: BUSPAR 10 MG PO ×2 (08:54→20:33)
[2023-08-23] MEDS: PACERONE 200 MG PO (08:54)
[2023-08-23] MEDS: NAMENDA 10 MG PO ×2 (08:54→20:33)
[2023-08-23] MEDS: CYMBALTA DELAYED RELEASE 30 MG PO ×2 (08:54→20:32)
--- NOTE | 2023-08-23 11:06 | W.PN.GI.CBS2 ---
Addendum entered and electronically signed by Chelsea Tucker MD 08/23/23 18:39:
I saw and examined the patient.
The PRECONSTRUCTION MANAGER or PA's note was reviewed and I agree with the note.
Comment: 88-year-old female past medical history of metastatic lung cancer on Keytruda on palliative care presenting with cough and fever found to have pneumonia or sepsis. Had some heme dark positive stools with anemia. Hemoglobin now stable no
need for blood products. We discussed high risk for endoscopy given pneumonia, age, comorbidities-I discussed with the patient's daughter at bedside. With stable hemoglobin, would recommend holding off. Can continue Protonix twice daily for 8
weeks then daily. GI will sign off. Please call with any questions or issues.
Original Note:
Today's Communication / Plan
-
As per plan
Assessment / Plan
-
Summary: 88yo female presents with lethargy, cough, fever admitted for PNA sepsis. She has hx metastatic lung CA on Keytruda. Hgb 8.6 on admission down from 10.5 last May. Stool dark heme positive on admission. Hx GERD. Hemoglobin now 8.
Vital signs stable. Patient ate solid meal this am. Discussed with her daughter Marquis Carpenter ([phone]) she states her Mother has ulcers 'in her 30's'. She also states that recently they have been crushing her ASA and giving it to her. She
noticed solid black stool the day prior to admission. She denies any N/V. Prior to that stools light brown. We did discuss if EGD needed DNR would need to be reversed. Patient ate solid meal today. No signs of distress and with metastatic lung
CA/PNA and sepsis. Would like to hold off for now and address as admission progresses.
Impression:
Sepsis
PNA
Heme positive anemia, currently with brown/dark brown stools
Metastatic lung CA on Keytruda
Recommendations:
Can change to Protonix twice daily (that is her home dose)
Watch for signs of active bleeding
Discussed with daughter not to crush ASA and give to patient which was a new process they were doing. She is going to change to EC ASA if felt to be needed. That was a home med.
Hold off on EGD given PNA/sepsis for now. Discussed with Daughter Marquis Carpenter [phone] on 08/22/23.
Subjective
Subjective
Date of Service: August 23, 2023
Patient with dementia and expressive aphasia but appears alert and comfortable sitting in bed. Diet at bedside. Discussed with first assistant and patient had a brown dark brown stool this morning that was solid. Hemoglobin is currently 9.4 up
from 8.0 yesterday. Patient did not receive any blood transfusions.
Objective
Data Reviewed
Laboratory Data:
Laboratory Results
08/23/23 07:11
08/23/23 07:11
Laboratory Results
PT 15.5 Sec (11.4-14.6) H 08/21/23 04:30
INR 1.24 08/21/23 04:30
APTT 36.4 Sec (23.4-35.0) H 08/21/23 04:30
Total Bilirubin 0.4 mg/dl (0.2-1.3) 08/20/23 15:19
AST 19 U/L (14-36) 08/20/23 15:19
ALT 16 U/L (0-35) 08/20/23 15:19
Alkaline Phosphatase 112 U/L (38-126) 08/20/23 15:19
Vital Signs and I&O:
Vital Signs
Temp Pulse Resp BP Pulse Ox
97.3 F 75 18 162/73 96
08/23/23 07:15 08/23/23 07:15 08/23/23 07:15 08/23/23 07:15 08/23/23 08:00
I&O
08/22/23 08/23/23 08/24/23
06:59 06:59 06:59
Intake Total 700 / 700 960 / 960
Output Total 550 / 550 2700 / 2700
Balance 150 / 150 -1740 / -1740
Physical Exam
Physical Exam
HEENT: Anicteric
Cardiology: Normal Sinus Rhythm
Pulmonary: Clear (anterior)
GI: Soft, Non Distended, Non Tender and Normal Bowel Sounds
Neuro: Other (Patient with expressive aphasia dementia)
[2023-08-23 11:20] VITALS: BP 166/81
--- NOTE | 2023-08-23 11:41 | PN.CDI ---
CDI
- -
CDI:
Physician Documentation Request
Admit Date: 08/20/23 20:06
Dear Doctor Trae,
Patient presented to ED with decline in mental status, sleeping more and now coughing more'
H&P states ' Several minutes into vancomycin dosing, patient developed red skin. She then became less responsive. BP went down to 54 systolic. O2 sat to 82 on 2 L. Unresponsive to sternal rub'
Per recorded vital signs patient was placed on 6L
H&P states 'hypoxia'
08/20 pulmonary consult states 'Hypoxemic respiratory failure'
08/20 hospitalist note states 'Acute hypoxic respiratory insufficiency'
Please clarify the patients respiratory status on admission:
Acute hypoxic respiratory failure
hypoxia
Other
Recognized standard criteria for respiratory failure includes:
(Source: PRABHAKAR Hospitalist Apr 2013)
ABGs (1 or more)
�PO2 <60 or RA SpO2 <91%
�PcO2 >50 and pH <7.35
�pO2 decrease or pcO2 increase by 10 mmHg from baseline if known Symptoms:
�Tachypnea, SOB, dyspnea
�Pallor or cyanosis
�Anxiety or restlessness
�Use of accessory muscles
�Retractions (grunting in newborns)
�Unable to speak in complete sentences
Supplemental O2 requirement of 40% (5LPM) or more Intubation is not required
Use of terms such as suspected, likely, concern for, or probable (associated with a specific diagnosis that is being evaluated, monitored, or treated as if it exists) are acceptable and can be coded in the inpatient setting, when documented at the
time of discharge.
Thank you,
Cherrie Hernandez RN, BSN
CDI Specialist
tiger text
Please use your independent medical judgment in providing your response.
--- NOTE | 2023-08-23 11:50 | PN.CDI ---
CDI
- -
CDI:
Physician Documentation Request
Admit Date: 08/20/23 20:06
Dear Doctor Trae,
H&P states 'tx for sepsis with abx..'
Pulmonary consult Sepsis: possible UTI'
08/20 hospitalist note states 'Leukocytosis likely secondary to steroids'
Presenting WBC 11.7
Presenting temp 100.9, heart rate 60s, Respiratory rate 15-21
Please clarify the following:
____ - Sepsis was present on admission
____ - Sepsis was ruled out
____ - Other
�Sepsis
-Systemic manifestations of infection, with 2 or more SIRS criteria which include:
-Fever > 100.4��F or hypothermia < 96.8��F
-Leukocytosis WBC > 12,000 or leukopenia, WBC < 4,000, or > 10% bands
-Tachycardia- > 90 beats/minute
-Tachypnea- RR > 20 breaths/minute or PaCO2 < 32mmHg
Source: Merck Manual 2013
Use of terms such as suspected, likely, concern for, or probable (associated with a specific diagnosis that is being evaluated, monitored, or treated as if it exists) are acceptable and can be coded in the inpatient setting, when documented at the
time of discharge.
Thank you,
Cherrie Hernandez RN, BSN
CDI Specialist
tiger text
Please use your independent medical judgment in providing your response.
--- NOTE | 2023-08-23 12:04 | PN.CDI ---
Addendum entered and electronically signed by Usha Larkin MD 08/23/23 20:16:
I am not changing any documentation. You can ask pulmonary
Original Note:
CDI
- -
CDI:
Physician Documentation Request
Admit Date: 08/20/23 20:06
Dear Doctor Trae,
H&P states ' Several minutes into vancomycin dosing, patient developed red skin. She then became less responsive. BP went down to 54 systolic. O2 sat to 82 on 2 L. Unresponsive to sternal rub.
Vancomycin discontinued. Placed on NRB. Given 0.5 IM epinephrine. 1 L NSS bolus. 125 mg IV solumedrol and IV famotidine. Her BP started rising prior to getting the epinephrine. After a dose of epinephrine BP navin to 140 systolic. Held off
epinephrine gtt.'
Data Center Project Manager/pulmonary consult states 'Reason for consultation: septic shock/pneumonia'
Please clarify which of the following is the most likely etiology of the above symptoms and treatment rendered:
Septic shock
Shock, unknown type
Hypotension
Other
Use of terms such as suspected, likely, concern for, or probable (associated with a specific diagnosis that is being evaluated, monitored, or treated as if it exists) are acceptable and can be coded in the inpatient setting, when documented at the
time of discharge.
Thank you,
Cherrie Hernandez RN, BSN
CDI Specialist
tiger text
Please use your independent medical judgment in providing your response.
--- NOTE | 2023-08-23 12:09 | PN.CDI ---
Addendum entered and electronically signed by Usha Larkin MD 08/23/23 20:15:
see my note.
Original Note:
CDI
- -
CDI:
Physician Documentation Request
Admit Date: 08/20/23 20:06
Dear Doctor Trae,
Patient presented to ED with decline in mental status, sleeping more and now coughing more'
H&P states ' Several minutes into vancomycin dosing, patient developed red skin. She then became less responsive. BP went down to 54 systolic. O2 sat to 82 on 2 L. Unresponsive to sternal rub. Vancomycin discontinues. Placed on NRB'
Per recorded vital signs patient was placed on 6L
H&P states 'hypoxia'
08/20 pulmonary consult states 'Hypoxemic respiratory failure'
08/20 hospitalist note states 'Acute hypoxic respiratory insufficiency'
Please clarify the patients respiratory status on admission:
Acute hypoxic respiratory failure
hypoxia
Other
Recognized standard criteria for respiratory failure includes:
(Source: [employer] Hospitalist Apr 2013)
ABGs (1 or more)
�PO2 <60 or RA SpO2 <91%
�PcO2 >50 and pH <7.35
�pO2 decrease or pcO2 increase by 10 mmHg from baseline if known Symptoms:
�Tachypnea, SOB, dyspnea
�Pallor or cyanosis
�Anxiety or restlessness
�Use of accessory muscles
�Retractions (grunting in newborns)
�Unable to speak in complete sentences
Supplemental O2 requirement of 40% (5LPM) or more Intubation is not required
Use of terms such as suspected, likely, concern for, or probable (associated with a specific diagnosis that is being evaluated, monitored, or treated as if it exists) are acceptable and can be coded in the inpatient setting, when documented at the
time of discharge.
Thank you,
Cherrie Hernandez RN, BSN
CDI Specialist
tiger text
Please use your independent medical judgment in providing your response.
[2023-08-23] MEDS: FERRLECIT 110 MG IV (14:04)
--- NOTE | 2023-08-23 14:51 | W.PN.ID1 ---
Date of Service
Date of Service: August 23, 2023
Today's Communication
Continue meropenem (d4 of 5)
Assessment / Plan
# Fever- resolved
# leukocytosis - trending down
# Suspect aspiration pneumonia.
-blood cx's neg to date
-Ucx GNR
- Continue meropenem (d4 of 5)
-Aspiration precaution
# Possible IV vancomycin anaphylaxis
- Of note, Pt had tolerated IV vancomycin in the past.
#Additional Past Medical History:
Dementia with Behavioral Disturbance
Lung Ca on Keytruda
Afib
CVA / TIA
Chronic Pain Syndrome / Chronic Back Pain
Spinal Stenosis / Scoliosis / DDD
GERD
Hypertension
Traumatic L Globe Injury
Small Bowel Resection Ex Lap secondary to dehiscence of anastomosis of above.
KIT
Chief Complaint
-: Pneumonia
Subjective / Review of Systems
no complaints
Vital Signs / Physical Exam
Vital Signs
Vital Signs
Temp Pulse Resp BP Pulse Ox
97.3 F 81 18 166/81 97
08/23/23 11:20 08/23/23 11:20 08/23/23 11:20 08/23/23 11:20 08/23/23 11:20
Physical Exam
Constitutional: No Acute Distress
Pulmonary: Clear
Gastrointestinal: Soft, Non Tender and Non Distended
Neurological: Awake and Alert
Objective Data
Lab Data
Lab Results
08/23/23 07:11
08/23/23 07:11
PT 15.5 Sec (11.4-14.6) H 08/21/23 04:30
INR 1.24 08/21/23 04:30
APTT 36.4 Sec (23.4-35.0) H 08/21/23 04:30
Estimated Creat Clear 61 ml/min 08/23/23 07:11
Lactic Acid Cancelled 08/20/23 19:30
Total Bilirubin 0.4 mg/dl (0.2-1.3) 08/20/23 15:19
AST 19 U/L (14-36) 08/20/23 15:19
ALT 16 U/L (0-35) 08/20/23 15:19
Alkaline Phosphatase 112 U/L (38-126) 08/20/23 15:19
Most recent labs reviewed.
Micro Results:
08/20/23 17:51 Urine Culture - Preliminary
Urine Gram negative bacilli
08/20/23 15:35 Blood Culture - Preliminary
Blood/Venous No Growth in 48 hours- Final report to follow
08/20/23 15:19 Blood Culture - Preliminary
Blood/Venous No Growth in 48 hours- Final report to follow
08/20/23 22:09 Nasal Screen MRSA (PCR) - Final
Nose MRSA not detected - performed by PCR methodology.
08/20/23 16:34 Influenza Types A & B (JAREK) - Final
Nasal Swab Negative for Influenza A & B, NAAT
Negative results must be combined with clinical observations
and patient history.
Nucleic Acid Amplification test (NAAT)performed on the
[employer] platform.
08/20/23 CXR: Mild left basilar atelectasis and/or pneumonia. Stable right basilar/infrahilar masslike opacity.
[2023-08-23 15:20] VITALS: BP 168/72
[2023-08-23] MEDS: SEROQUEL 25 MG PO (15:34)
[2023-08-23 19:00] VITALS: BP 165/81
--- NOTE | 2023-08-23 20:16 | W.PN.HOSP.TC ---
Today's Communication/Plan
-
Continue AB
Assessment / Plan
Assessment / Plan
88-year-old female with dementia admitted because of hypoxia. Patient is nonverbal patient had a fever 100.9 and hypoxic. X-ray showed infrahilar mass opacity COVID and flu negative. She was admitted on vancomycin after which she had anaphylactic
reaction needed epinephrine IV fluids, Solu-Medrol and famotidine. She is admitted to ICU chest x-ray reviewed by me
Chest i-npu-lwsimxghwtm/pneumonia left side. Stable right basilar infrahilar masslike opacity
Patient is awake and alert, not following directions
Rales bilateral lungs
Abdomen soft and nontender
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 Moving all extremities.
Does not follow directions
# Anaphylactic reaction suspected to vancomycin-added to allergy list
Anaphylactic shock
# Acute hypoxic respiratory failure secondary to pneumonia aspiration pneumonia likely
Speech evaluation noted
Dysphagia diet
Meropenem to be continued
Blood cultures pending
Sputum cultures if possible
Patient's daughter stated that since she had Keytruda associated cough they have been laying her flat because patient is not coughing much with that. This could have led to aspiration. They are aware that patient should be laying at 30 degrees
VSE - normal
# Metastatic lung nodules-likely stage IV -on Keytruda now
Unclear if melanoma is the primary
Patient was seen by oncology May 2022 and hospice was recommended at that time.
Follows with Farshad Klein at [facility]
# Keytruda associated Cough -
It is possible it may be from Aspiration
# Leukocytosis likely secondary to steroids
# UTI
History of Pseudomonas
Meropenem as Pseudomonas was resistant to Zosyn last time
Await urine culture
Chronic UTIs on Hiprex as OP
# Acute kidney injury-IV fluids gentle
Poor PO intake
# Anemia
Chronic and also from sub acute blood loss
Hemoglobin down to 8.0
Heme positive stools
Continue PPI
Type and screen and blood consent obtained in the ER
Clears
FREDA
Will give IV iron.
GI eval noted
No plan for EGD
# Hypertension-continue amlodipine and metoprolol

# Paroxysmal atrial fibrillation
On amiodarone and metoprolol
Not on AC as OP
# Hyperlipidemia-continue atorvastatin
# Dementia with behavioral disturbances agitation confusion
On BuSpar, duloxetine, Namenda, Seroquel
# Chronic back pain/neuropathy/ambulatory dysfunction/scoliosis/spinal stenosis on gabapentin
# Stroke-ASA,Statin
Suspected to be cardioembolic however not on anticoagulation because of high risk
# Hemorrhoids/History of Small Bowel Resection with subsequent Ex Lap secondary to dehiscence of anastomosis
# Anxiety and depression-on BuSpar, duloxetine,Seroquel restarted
# H/O PUD per Daughter.
# Hypoalbuminemia
# Ex-smoker
# DVT prophylaxis SCDS
# CODE STATUS addressed with the patient's daughter .Patient is DNR. I think this is a very appropriate decision.
Per daughter son is also aware and in agreement with DNR.
Medically complex
D/W Daughter at bed side
D/W RN
Anticipated Discharge: 24 - 48 hours
Subjective/Interval History
-
Date of Service: August 23, 2023
Objective Data
-
Labs:
Laboratory Results
08/23/23
07:11
WBC 13.3 H
Hgb 9.4 L
Hct 30.8 L
Plt Count 342 D
Sodium 136
Potassium 3.5
Chloride 103
Carbon Dioxide 31 H
BUN 14
Creatinine 0.6
Glucose 93
Calcium 8.4
Vital Signs:
Vital Signs
Temp Pulse Resp BP Pulse Ox
97.5 F 82 18 168/72 96
08/23/23 15:20 08/23/23 15:20 08/23/23 15:20 08/23/23 15:20 08/23/23 15:20
I&O
08/22/23 08/23/23 08/24/23
06:59 06:59 06:59
Intake Total 700 / 700 960 / 960 1310 / 1310
Output Total 550 / 550 2700 / 2700 1800 / 1800
Balance 150 / 150 -1740 / -1740 -490 / -490
[2023-08-23] MEDS: SEROQUEL 75 MG PO (20:35)
[2023-08-23] MEDS: CLARITIN 10 MG PO (20:35)
[2023-08-23] MEDS: SENNA SYRUP PO (20:36)
[2023-08-23] MEDS: LIPITOR 40 MG PO (20:37)
[2023-08-23] MEDS: NEURONTIN 300 MG PO (20:37)
[2023-08-23] MEDS: NORVASC 10 MG PO (20:38)
[2023-08-23] MEDS: MELATONIN 10 MG PO (20:46)
[2023-08-23 23:00] VITALS: BP 150/68
[2023-08-24] VITALS (7 sets, daily range): BP systolic 117–151; BP diastolic 52–80; PULSE 69; O2SAT 95
[2023-08-24] MEDS: STERILE WATER FOR INJECTION 10 ML IV ×3 (05:23→23:02)
[2023-08-24] MEDS: MERREM 500 MG IV ×3 (05:23→23:02)
--- NOTE | 2023-08-24 08:00 | W.PN.HOSP.TC ---
Addendum entered and electronically signed by Chan Moseley MD 08/24/23 15:19:
sepsis, poa
Original Note:
Today's Communication/Plan
-
Continue IV antibiotics.
Assessment / Plan
Assessment / Plan
88-year-old female with dementia admitted because of hypoxia. Patient is nonverbal patient had a fever 100.9 and hypoxic. X-ray showed infrahilar mass opacity COVID and flu negative. She was admitted on vancomycin after which she had anaphylactic
reaction needed epinephrine IV fluids, Solu-Medrol and famotidine. She is admitted to ICU chest x-ray reviewed by me
Chest e-upa-ktlopmxmpuq/pneumonia left side. Stable right basilar infrahilar masslike opacity
Patient is awake and alert, not following directions
Rales bilateral lungs
Abdomen soft and nontender
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 Moving all extremities.
Does not follow directions
A/P:
# Anaphylactic reaction suspected to vancomycin-added to allergy list
Anaphylactic shock
# Acute hypoxic respiratory failure secondary to pneumonia aspiration pneumonia likely
Speech evaluation noted
Dysphagia diet
Meropenem to be continued
Blood cultures pending
Sputum cultures if possible
Patient's daughter stated that since she had Keytruda associated cough they have been laying her flat because patient is not coughing much with that. This could have led to aspiration. They are aware that patient should be laying at 30 degrees
VSE - normal
ID on board and recommends to continue meropenem today will be day number 5 out of 5.
# Metastatic lung nodules-likely stage IV -on Keytruda now
Unclear if melanoma is the primary
Patient was seen by oncology May 2022 and hospice was recommended at that time.
Follows with Farshad Klein at [facility]
# Keytruda associated Cough -
It is possible it may be from Aspiration
# Leukocytosis likely secondary to steroids
# UTI
History of Pseudomonas
Meropenem as Pseudomonas was resistant to Zosyn last time
Await urine culture
Chronic UTIs on Hiprex as OP
# Acute kidney injury-IV fluids gentle
Poor PO intake
# Anemia
Chronic and also from sub acute blood loss
Hemoglobin down to 8.0--> today hemoglobin 10.5
Heme positive stools
Continue PPI
Type and screen and blood consent obtained in the ER
Clears
FREDA
Will give IV iron.
GI eval noted
No plan for EGD
# Hypertension-continue amlodipine and metoprolol

# Paroxysmal atrial fibrillation
On amiodarone and metoprolol
Not on AC as OP
# Hyperlipidemia-continue atorvastatin
# Dementia with behavioral disturbances agitation confusion
On BuSpar, duloxetine, Namenda, Seroquel
# Chronic back pain/neuropathy/ambulatory dysfunction/scoliosis/spinal stenosis on gabapentin
# Stroke-ASA,Statin
Suspected to be cardioembolic however not on anticoagulation because of high risk
# Hemorrhoids/History of Small Bowel Resection with subsequent Ex Lap secondary to dehiscence of anastomosis
# Anxiety and depression-on BuSpar, duloxetine,Seroquel restarted
# H/O PUD per Daughter.
# Hypoalbuminemia
# Ex-smoker
# DVT prophylaxis SCDS
# CODE STATUS addressed with the patient's daughter .Patient is DNR. I think this is a very appropriate decision.
Per daughter son is also aware and in agreement with DNR.
Medically complex
Anticipated Discharge: 24 - 48 hours
Subjective/Interval History
-
Date of Service: August 24, 2023
Patient seen and examined. No new complaints. Afebrile
Objective Data
-
Vital Signs:
Vital Signs
Temp Pulse Resp BP Pulse Ox
97.0 F 71 14 128/80 94
08/24/23 03:00 08/24/23 03:00 08/24/23 03:00 08/24/23 03:00 08/24/23 03:00
I&O
08/23/23 08/24/23 08/25/23
06:59 06:59 06:59
Intake Total 960 / 960 1430 / 1430
Output Total 2700 / 2700 2550 / 2550
Balance -1740 / -1740 -1120 / -1120
Review of Systems
-
Unable to obtain full review of systems at this time due to: Dementia
[2023-08-24] MEDS: MIRALAX PO ×2 (08:14→20:22)
[2023-08-24] MEDS: COLACE LIQUID PO (08:14)
[2023-08-24] MEDS: BUSPAR 10 MG PO ×2 (09:42→20:18)
[2023-08-24] MEDS: NAMENDA 10 MG PO ×2 (09:42→20:16)
[2023-08-24] MEDS: CYMBALTA DELAYED RELEASE 30 MG PO ×2 (09:42→20:18)
[2023-08-24] MEDS: VISBIOME 1 CAP PO ×2 (09:43→20:17)
[2023-08-24] MEDS: PACERONE 200 MG PO (09:43)
[2023-08-24] MEDS: LOPRESSOR 50 MG PO ×2 (09:43→20:17)
[2023-08-24] MEDS: PROTONIX IV 40 MG IV ×2 (09:44→20:28)
[2023-08-24] MEDS: NSS (PRESERVATIVE FREE) 10 ML IV ×2 (09:44→20:28)
[2023-08-24 09:59] LABS: % Basophils 0.5 % (0-2); % Eosinophils 0.9 % (0-6); % Immature Granulocytes 0.7 % (0-0.5); % Lymphocytes 8.4 % (20.5-51.1); % Monocytes 7.8 % (1.7-9.3); % Neutrophils 81.7 % (42.2-75.2); Absolute Basophils 0.1 10^3/uL (0-0.2); Absolute Eosinophils 0.1 10^3/uL (0-0.7); Absolute Immature Granulocytes 0.1 10^3/uL (0-0.05); Absolute Lymphocytes 1.1 10^3/uL (1.2-3.4); Absolute Neutrophils 10.5 10^3/uL (1.4-6.5); Hemoglobin 10.5 g/dL (12.0-16.0); Mean Corp Hgb Conc. 31.8 g/dL (33.0-37.0); Mean Corpuscular Hgb 25.1 pg (27.0-31.0); Mean Corpuscular Volume 78.8 fL (81.0-99.0); Nucleated Red Blood Cells % 0 %; Red Blood Cell Count 4.19 10^6/uL (4.20-5.40); Red Cell Dist. Width 15.7 % (11.5-14.5); White Blood Cell Count 12.8 10^3/uL (4.8-10.8)
[2023-08-24 10:50] LABS: Blood Urea Nitrogen 10 mg/dl (7-17); Calcium 8.7 mg/dl (8.4-10.2); Carbon Dioxide 25 mmol/L (22-30); Chloride 105 mmol/L (98-107); Estimated Creatinine Clearance 61 ml/min; Glucose 89 mg/dl (70-99); Sodium 136 mmol/L (135-145); eGFR > 60.00
[2023-08-24 10:58] LABS: Platelet Count 304 10^3/uL (130-400)
--- NOTE | 2023-08-24 12:33 | W.PN.ID1 ---
Date of Service
Date of Service: August 24, 2023
Today's Communication
Last day of meropenem.
ID will sign off.
Assessment / Plan
# Suspect aspiration pneumonia.
# Pseudomonas bacteruria
# Fever- resolved
# leukocytosis - continues to trend down
- Last day of meropenem (d5 of 5)
# Possible IV vancomycin anaphylaxis
- Of note, Pt had tolerated IV vancomycin in the past.
#Additional Past Medical History:
Dementia with Behavioral Disturbance
Lung Ca on Keytruda
Afib
CVA / TIA
Chronic Pain Syndrome / Chronic Back Pain
Spinal Stenosis / Scoliosis / DDD
GERD
Hypertension
Traumatic L Globe Injury
Small Bowel Resection Ex Lap secondary to dehiscence of anastomosis of above.
KIT
Chief Complaint
-: Pneumonia
Vital Signs / Physical Exam
Vital Signs
Vital Signs
Temp Pulse Resp BP Pulse Ox
97.5 F 74 18 127/76 96
08/24/23 07:51 08/24/23 07:51 08/24/23 07:51 08/24/23 07:51 08/24/23 07:51
Physical Exam
Constitutional: No Acute Distress and Comfortable
Pulmonary: Clear (anterior)
Genito-Urinary: Negative CVA Tenderness
Objective Data
Lab Data
Lab Results
08/24/23 09:50
08/24/23 09:50
PT 15.5 Sec (11.4-14.6) H 08/21/23 04:30
INR 1.24 08/21/23 04:30
APTT 36.4 Sec (23.4-35.0) H 08/21/23 04:30
Estimated Creat Clear 61 ml/min 08/24/23 09:50
Lactic Acid Cancelled 08/20/23 19:30
Total Bilirubin 0.4 mg/dl (0.2-1.3) 08/20/23 15:19
AST 19 U/L (14-36) 08/20/23 15:19
ALT 16 U/L (0-35) 08/20/23 15:19
Alkaline Phosphatase 112 U/L (38-126) 08/20/23 15:19
Most recent labs reviewed.
Micro Results:
08/20/23 17:51 Urine Culture - Final
Urine Pseudomonas aeruginosa
08/20/23 15:35 Blood Culture - Preliminary
Blood/Venous No Growth in 72 hours- Final report to follow
08/20/23 15:19 Blood Culture - Preliminary
Blood/Venous No Growth in 72 hours- Final report to follow
08/20/23 22:09 Nasal Screen MRSA (PCR) - Final
Nose MRSA not detected - performed by PCR methodology.
08/20/23 16:34 Influenza Types A & B (JAREK) - Final
Nasal Swab Negative for Influenza A & B, NAAT
Negative results must be combined with clinical observations
and patient history.
Nucleic Acid Amplification test (NAAT)performed on the
[employer] platform.
08/20/23 CXR: Mild left basilar atelectasis and/or pneumonia. Stable right basilar/infrahilar masslike opacity.
--- NOTE | 2023-08-24 14:13 | PN.CDI ---
CDI
- -
CDI:
Physician Documentation Request
Admit Date: 08/20/23 20:06
Dear Doctor Pradip,
H&P states 'tx for sepsis with abx..'
Pulmonary consult Sepsis: possible UTI'
08/20 hospitalist note states 'Leukocytosis likely secondary to steroids'
Presenting WBC 11.7
Presenting temp 100.9, heart rate 60s, Respiratory rate 15-21
Please clarify the following:
____ - Sepsis was present on admission
____ - Sepsis was ruled out
____ - Other
�Sepsis
-Systemic manifestations of infection, with 2 or more SIRS criteria which include:
-Fever > 100.4��F or hypothermia < 96.8��F
-Leukocytosis WBC > 12,000 or leukopenia, WBC < 4,000, or > 10% bands
-Tachycardia- > 90 beats/minute
-Tachypnea- RR > 20 breaths/minute or PaCO2 < 32mmHg
Source: Merck Manual 2013
Use of terms such as suspected, likely, concern for, or probable (associated with a specific diagnosis that is being evaluated, monitored, or treated as if it exists) are acceptable and can be coded in the inpatient setting, when documented at the
time of discharge.
Thank you,
Cherrie Hernandez RN, BSN
CDI Specialist
tiger text
Please use your independent medical judgment in providing your response.
[2023-08-24] MEDS: FERRLECIT 110 MG IV (15:26)
[2023-08-24] MEDS: MELATONIN 10 MG PO (20:18)
[2023-08-24] MEDS: NEURONTIN 300 MG PO (20:19)
[2023-08-24] MEDS: LIPITOR 40 MG PO (20:20)
[2023-08-24] MEDS: SEROQUEL 75 MG PO (20:20)
[2023-08-24] MEDS: CLARITIN 10 MG PO (20:20)
[2023-08-24] MEDS: NORVASC 10 MG PO (20:21)
[2023-08-24] MEDS: COLACE LIQUID 100 MG PO (20:43)
[2023-08-24] MEDS: SENNA SYRUP 8.80000000000000071 MG PO (20:45)
[2023-08-25 03:21] VITALS: BP 118/49
[2023-08-25] MEDS: MERREM 500 MG IV (05:42)
[2023-08-25] MEDS: STERILE WATER FOR INJECTION 10 ML IV (05:43)
[2023-08-25 07:00] VITALS: BP 128/51
--- NOTE | 2023-08-25 08:01 | W.PN.HOSP.TC ---
Today's Communication/Plan
-
Finish course of antibiotics. Discharge planning possibly today.
Assessment / Plan
Assessment / Plan
88-year-old female with dementia admitted because of hypoxia. Patient is nonverbal patient had a fever 100.9 and hypoxic. X-ray showed infrahilar mass opacity COVID and flu negative. She was admitted on vancomycin after which she had anaphylactic
reaction needed epinephrine IV fluids, Solu-Medrol and famotidine. She is admitted to ICU chest x-ray reviewed by me
Chest k-yjk-adihjevggao/pneumonia left side. Stable right basilar infrahilar masslike opacity
Patient is awake and alert, not following directions
Rales bilateral lungs
Abdomen soft and nontender
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
Does not follow directions
A/P:
# Anaphylactic reaction suspected to vancomycin-added to allergy list
Anaphylactic shock
# Acute hypoxic respiratory failure secondary to aspiration pneumonia
Speech evaluation noted
Dysphagia diet
Meropenem finished course yesterday 08/23
wbc 28.6-->11.1 today
Blood cultures no growth
She had a temp of 100.4 last evening--> discussed with ID today on 08/[address] Antonio cleared patient for discharge today and no need for more antibiotics.
Patient's daughter stated that since she had Keytruda associated cough they have been laying her flat because patient is not coughing much with that. This could have led to aspiration. They are aware that patient should be laying at 30 degrees
VSE - normal
# Metastatic lung nodules-likely stage IV -on Keytruda now
Unclear if melanoma is the primary
Patient was seen by oncology May 2022 and hospice was recommended at that time.
Follows with Farshad Klein at [facility]
# Keytruda associated Cough -
It is possible it may be from Aspiration
# Leukocytosis likely secondary to steroids
# UTI and ID feels this is Pseudomonas bacteriuria, in any event she was treated with meropenem.
History of Pseudomonas
Meropenem as Pseudomonas was resistant to Zosyn last time
Chronic UTIs on Hiprex as OP
# Acute kidney injury-IV fluids gentle
Poor PO intake
#Urinary retention
She has not required Parsons
We were going to start her on Flomax but unclear if she will be able to take it oral
#Hypokalemia
Replete IV today
# Anemia
Chronic and also from sub acute blood loss
Hemoglobin down to 8.0--> today hemoglobin 10.5
Heme positive stools
Continue PPI
Type and screen and blood consent obtained in the ER
Clears
FREDA
Will give IV iron.
GI hayleeal noted
No plan for EGD
# Hypertension-continue amlodipine and metoprolol

# Paroxysmal atrial fibrillation
On amiodarone and metoprolol
Not on AC as OP
# Hyperlipidemia-continue atorvastatin
# Dementia with behavioral disturbances agitation confusion
On BuSpar, duloxetine, Namenda, Seroquel
# Chronic back pain/neuropathy/ambulatory dysfunction/scoliosis/spinal stenosis on gabapentin
# Stroke-ASA,Statin
Suspected to be cardioembolic however not on anticoagulation because of high risk
# Hemorrhoids/History of Small Bowel Resection with subsequent Ex Lap secondary to dehiscence of anastomosis
# Anxiety and depression-on BuSpar, duloxetine,Seroquel restarted
# H/O PUD per Daughter.
# Hypoalbuminemia
# Ex-smoker
# DVT prophylaxis SCDS
# CODE STATUS addressed with the patient's daughter .Patient is DNR. I think this is a very appropriate decision.
Per daughter son is also aware and in agreement with DNR.
Medically complex
Anticipated Discharge: Today
Subjective/Interval History
-
Date of Service: August 25, 2023
Patient seen and examined. No new complaints but limited history due to dementia.
Objective Data
-
Labs:
Laboratory Results
08/25/23
06:00
WBC Pending
Hgb Pending
Hct Pending
Plt Count Pending
Sodium Pending
Potassium Pending
Chloride Pending
Carbon Dioxide Pending
BUN Pending
Creatinine Pending
Glucose Pending
Calcium Pending
Vital Signs:
Vital Signs
Temp Pulse Resp BP Pulse Ox
97.7 F 59 16 118/49 93
08/25/23 03:21 08/25/23 03:21 08/25/23 03:21 08/25/23 03:21 08/25/23 03:21
I&O
08/24/23 08/25/23 08/26/23
06:59 06:59 06:59
Intake Total 1430 / 1430 350 / 444
Output Total 2550 / 2550 350 / 350
Balance -1120 / -1120
[2023-08-25] MEDS: MIRALAX PO (08:39)
[2023-08-25] MEDS: NAMENDA 10 MG PO (08:45)
[2023-08-25] MEDS: PACERONE 200 MG PO (08:45)
[2023-08-25] MEDS: VISBIOME 1 CAP PO (08:46)
[2023-08-25] MEDS: CYMBALTA DELAYED RELEASE 30 MG PO (08:46)
[2023-08-25] MEDS: PROTONIX IV 40 MG IV (08:49)
[2023-08-25] MEDS: NSS (PRESERVATIVE FREE) 10 ML IV (08:49)
[2023-08-25] MEDS: BUSPAR 10 MG PO (08:49)
[2023-08-25 08:50] LABS: % Basophils 0.5 % (0-2); % Eosinophils 1.4 % (0-6); % Immature Granulocytes 0.6 % (0-0.5); % Lymphocytes 9.4 % (20.5-51.1); % Monocytes 8.2 % (1.7-9.3); % Neutrophils 79.9 % (42.2-75.2); Absolute Basophils 0.1 10^3/uL (0-0.2); Absolute Eosinophils 0.2 10^3/uL (0-0.7); Absolute Immature Granulocytes 0.1 10^3/uL (0-0.05); Absolute Monocytes 0.9 10^3/uL (0.1-0.6); Absolute Neutrophils 8.9 10^3/uL (1.4-6.5); Hematocrit 30.5 % (37.0-47.0); Hemoglobin 9.1 g/dL (12.0-16.0); Mean Corp Hgb Conc. 29.8 g/dL (33.0-37.0); Mean Corpuscular Hgb 24.8 pg (27.0-31.0); Mean Corpuscular Volume 83.1 fL (81.0-99.0); Nucleated Red Blood Cells % 0 %; Platelet Count 289 10^3/uL (130-400); Red Blood Cell Count 3.67 10^6/uL (4.20-5.40); Red Cell Dist. Width 15.7 % (11.5-14.5); White Blood Cell Count 11.1 10^3/uL (4.8-10.8)
[2023-08-25] MEDS: COLACE LIQUID 100 MG PO (08:52)
[2023-08-25] MEDS: LOPRESSOR 50 MG PO (08:56)
--- NOTE | 2023-08-25 09:55 | W.DCSUMMARY ---
Discharge Summary
Discharge Data
Date of Admission: 08/20/23
Date of Discharge: 08/25/23
-
Pending Results: No
Hospital Course
Patient 88 years old female with multiple comorbidities including advanced Alzheimer's dementia, stage IV metastatic lung cancer on Keytruda as outpatient, recurrent UTIs, atrial fibrillation not on anticoagulation, presented to the hospital after
mental status and fever. She was started on vancomycin for pneumonia and during infusion developed 'red man' syndrome versus anaphylactic reaction since she also was bradycardic hypotensive and unresponsiveness and received steroids with resolution
of symptoms so antibiotics were switched to IV meropenem. Pulmonary critical care consulted. ID consulted as well. She also was noted to have heme positive stool for which GI consulted. GI recommended conservative approach in light of her
multiple comorbidities and as a matter fact hemoglobin remained stable so continue with her outpatient Protonix twice daily for at least 2 more months. Patient also grew Pseudomonas in her urine culture. ID completed a course of IV meropenem for 5
days during this hospital stay. Patient had a low-grade temp evening of 08/23 and ID aware but day of discharge on 08/24 she has been afebrile. ID cleared her for discharge today. She also has been noted to have some urinary retention but she has
been able to slowly void and recommended Flomax unclear if she will be able to take oral and alternatively can consider put a Parsons catheter but given that she has been able to void ultimately decided not to put a catheter in place. Initially
recommended skilled rehab but family feels that she would not benefit from that given her advanced dementia which is reasonable. Case management arranged for home health care and family has 12 hours of private care as well. Patient will be
discharged today.
Discharge duration: 37 minutes
Discharge Plan
-
Patient Disposition: Home with Home Care
Discharge Diagnosis/Procedures: Sepsis. Aspiration pneumonia. Acute hypoxic respiratory failure. Metastatic stage 4 Lung cancer. Pseudomonas bacteriuria. Anemia. Atrial fibrillation. Advanced Alzheimer's dementia. Stroke. Possible
gastrointestinal bleed.
Diet: Low Cholesterol and Other diet
Additional Diets: IDDSI-level 6 soft and bite size
Activity: As tolerated
Driving Restrictions: As prior to admission
Blood Work: Please PCP to order CBC, BMP within 1 week
Referrals:
Primary care, provider [Other] (See less than 1 week)
Paul Thayer MD [Active] - in four to six weeks
Pascual Markham MD [Active] - in four to six weeks
Ulices Kong MD, Resident [Family Provider] - in less than 1 week
Prescriptions:
New
tamsulosin [Flomax] 0.4 mg capsule
0.4 mg PO DAILY Qty: 30 0RF
Continued
quetiapine 25 mg Tablet
25 mg PO DAILY@1500 PRN (Reason: Mental Health/Anxiety)
atorvastatin 40 mg Tablet
40 mg PO HS
amiodarone 200 mg Tablet
200 mg PO DAILY
metoprolol succinate 50 mg Tablet Extended Release 24 Hr
50 mg PO BID
sennosides-docusate sodium [Senna Plus] 8.6-50 mg Tablet
2 tab-cap PO BID
methenamine hippurate 1 gram Tablet
1 g PO BID
pantoprazole 40 mg Tablet,Delayed Release (Dr/Ec)
40 mg PO BID
buspirone 10 mg Tablet
10 mg PO BID
gabapentin 300 mg Capsule
300 mg PO HS
docusate sodium 100 mg Tablet
100 mg PO BID
memantine 10 mg Tablet
10 mg PO BID
duloxetine 30 mg Capsule,Delayed Release(Dr/Ec)
30 mg PO BID
melatonin 10 mg Tablet
20 mg PO HS
quetiapine 25 mg Tablet
100 mg PO HSPRN PRN (Reason: mental health/anxiety)
benzonatate 100 mg Capsule
100 mg PO HS
benzonatate 100 mg Capsule
100 mg PO BID PRN (Reason: cough)
bisacodyl 10 mg Suppository
10 mg PA DAILY PRN (Reason: constipation)
bisacodyl [Gentle Laxative (bisacodyl)] 5 mg Tablet,Delayed Release (Dr/Ec)
5 mg PO BIDPRN PRN (Reason: constipation)
fluticasone propionate 50 mcg/actuation [place],Suspension
1 spray INTRANASAL BID
loratadine 10 mg Tablet
10 mg PO HS
Visbiome 112.5 billion cell Capsule
1 cap PO BID
Keytruda 25 mg/mL Solution
0 mg IV Q3W
Patient Comments:
08/20/2023, daughter unsure of dose.
quetiapine 25 mg tablet
75 mg PO HS
polyethylene glycol 3350 [HealthyLax] 17 gram powder in packet
17 g PO NOON
amlodipine 10 mg tablet
10 mg PO HS
Held
aspirin 81 mg Tablet,Delayed Release (Dr/Ec)
81 mg PO DAILY
Hold Instructions: Resume on 08/30/23.
Discharge Orders:
Discharge Patient (As Directed); Ordered 08/25/23
Ordered By: Chan Moseley
Discharge Date and Time
Discharge Date/Time: 08/25/23 14:23
[2023-08-25 09:57] LABS: Blood Urea Nitrogen 17 mg/dl (7-17); Calcium 8.3 mg/dl (8.4-10.2); Carbon Dioxide 30 mmol/L (22-30); Chloride 102 mmol/L (98-107); Estimated Creatinine Clearance 52 ml/min; Glucose 86 mg/dl (70-99); Potassium 3.4 mmol/L (3.5-5.1); Sodium 134 mmol/L (135-145); eGFR > 60.00
[2023-08-25] MEDS: KCL 160 MEQ IV (11:25)
[2023-08-25 11:28] VITALS: BP 125/53
--- NOTE | 2023-08-25 15:37 | CM ---
CM following re: d/c planning
Chart reviewed
Pt is medically stable for d/c
CM spoke with the patient's son & daughter who are co-POA's and both in agreement of d/c
CM reviewed IMM with the patient's son Manjit via phone
Post d/c recommendation is for VN; referral sent to [facility] due to familiarity with home care agency and accepted
Per the patient's son; pt also has 12hrs of private care givers through [facility]
No additional d/c needs noted
PLAN; [facility]
== END 2023-08-25 14:23 | disposition home health service (06) | DRG 871 ==
LOC: 4 EAST ACU 20:06
PROVIDERS: Hospitalist; Nurse Practitioner Primary Care; Physician Assistant; ADMITTING PHYSICIAN Internal Medicine; ATTENDING PHYSICIAN Hospitalist; CONSULT PHYSICIAN Internal Medicine Critical Care Medicine; CONSULT PHYSICIAN Internal Medicine Infectious Disease; CONSULT PHYSICIAN Specialist; EMERGENCY PHYSICIAN Emergency Medicine; FAMILY PHYSICIAN Student in an Organized Health Care Education/Training Program
DX: A41.9 Sepsis, unspecified organism (principal); J69.0 Pneumonitis due to inhalation of food and vomit; J96.01 Acute respiratory failure with hypoxia; R65.21 Severe sepsis with septic shock; N39.0 Urinary tract infection, site not specified; N17.9 Acute kidney failure, unspecified; F02.C18 Dementia in other diseases classified elsewhere, severe, with other behavioral disturbance; J98.11 Atelectasis; C34.90 Malignant neoplasm of unspecified part of unspecified bronchus or lung; C79.51 Secondary malignant neoplasm of bone; K92.2 Gastrointestinal hemorrhage, unspecified; T88.6XXA Anaphylactic reaction due to adverse effect of correct drug or medicament properly administered, initial encounter; D64.9 Anemia, unspecified; I48.91 Unspecified atrial fibrillation; Z79.82 Long term (current) use of aspirin; B96.5 Pseudomonas (aeruginosa) (mallei) (pseudomallei) as the cause of diseases classified elsewhere; G30.9 Alzheimer's disease, unspecified; I10 Essential (primary) hypertension; Z87.891 Personal history of nicotine dependence; I48.0 Paroxysmal atrial fibrillation; Z66 Do not resuscitate; E78.5 Hyperlipidemia, unspecified; E87.6 Hypokalemia; Z11.52 Encounter for screening for COVID-19
CPT/HCPCS: 71046; 74230; 80048; 80053; 80202; 81003; 81015; 82306; 82607; 82728; 82805; 83540; 83550; 83605; 84145; 84443; 85025; 85027; 85610; 85730; 86850; 86870; 86900; 86901; 87040; 87077; 87086; 87186; 87502; 87641; 87811; 92526; 92610; 92611; 93005; 96365; 96366; 96367; 96375; 97116; 97163; 97167; 97530; 99285; J2185; J2916

== ENCOUNTER 2023-09-02 15:59 | Inpatient (IN) | payer MEDICARE, BC, SELFPAY ==
[2023-09-02] VITALS (10 sets, daily range): BP systolic 107–144; BP diastolic 43–67; BMI 22.3; BMI 21.7
[2023-09-02 11:16] LABS: % Basophils 0.1 % (0-2); % Eosinophils 0.1 % (0-6); % Immature Granulocytes 0.6 % (0-0.5); % Monocytes 7.7 % (1.7-9.3); % Neutrophils 85.5 % (42.2-75.2); Absolute Immature Granulocytes 0.1 10^3/uL (0-0.05); Absolute Lymphocytes 1.3 10^3/uL (1.2-3.4); Absolute Monocytes 1.7 10^3/uL (0.1-0.6); Absolute Neutrophils 18.7 10^3/uL (1.4-6.5); Hematocrit 23.8 % (37.0-47.0); Hemoglobin 7.4 g/dL (12.0-16.0); Mean Corp Hgb Conc. 31.1 g/dL (33.0-37.0); Mean Corpuscular Hgb 25.6 pg (27.0-31.0); Mean Corpuscular Volume 82.4 fL (81.0-99.0); Mean Platelet Volume 10.7 fL (7.4-10.4); Nucleated Red Blood Cells % 0 %; Platelet Count 304 10^3/uL (130-400); Red Blood Cell Count 2.89 10^6/uL (4.20-5.40); Red Cell Dist. Width 16.7 % (11.5-14.5); White Blood Cell Count 21.8 10^3/uL (4.8-10.8)
[2023-09-02 11:37] LABS: Lactic Acid 0.7 mmol/L (0.7-2.0)
[2023-09-02 11:47] LABS: Blood Urea Nitrogen 32 mg/dl (7-17); Calcium 7.9 mg/dl (8.4-10.2); Carbon Dioxide 29 mmol/L (22-30); Chloride 100 mmol/L (98-107); Estimated Creatinine Clearance 36 ml/min; Glucose 95 mg/dl (70-99); Sodium 130 mmol/L (135-145); eGFR 54.53
--- NOTE | 2023-09-02 11:48 | ED.GENMED ---
History of Present Illness
General
Chief Complaint: Change in Mental Status
Source: ambulance crew
Exam Limitations: altered mental status
Time Seen by Provider: 09/02/23 11:17
Nursing documentation reviewed up to this point in time: agreed with
Travel History
Have you had any contact with someone who has COVID-19?: No
Do you have any symptoms of coronavirus? Fever > 100 degrees, chills, cough, shortness of breath, sore throat, loss of taste or smell, muscle aches, or headache?: No
History of Present Illness
History of Present Illness:
88-year-old female presents emergency department due to increased confusion, EMS found to be hypoxic at 85% on room air. She was just discharged from the hospital for UTI treatment.
Past History
Past History
ED Past Medical History: CVA, GERD, HTN, Hypercholesterolemia, Psychiatric (Anxiety, Depression, ) and Other (Alzheimer's, PNA, Long QT, UTI, Anemia, )
ED Past Surgical History: Bowel resection (for Obstruction. Then again for adhesions,), Gynecological (OOpherectomy), Orthopedic (Left wrist ORIF 2017, Back surgery, Left meniscus repair, ), Tonsilectomy and Other (Left eye surgery, )
Social History
Tobacco: Former smoker
Alcohol: None
Drug: None
Personal:
Living: with family
Employment: Other
Family History
Family History: Hypertension
Review of Systems
Review of Systems
Allergies reviewed?: Yes
Unable to obtain full review of systems at this time due to: dementia
Constitutional: Reports fever
Phy Exam
Physical Exam
Physical Exam:
Physical Exam
General: Fever 100.9, chronic ill appearance
Neck: supple. no meningeal signs. normal posterior pharynx
Heart: s1/s2 regular rate and rhythm, no murmur. equal radial
pulses.
HEENT: Pupils equal round reactive to light, EOMI
Lungs: no acute respiratory distress. clear bilaterally
Abdomen: normal bowel sounds. not tender. no CVAT
Neuro: Responds to voice. no focal neurological deficits cranial nerves II through XII intact
Skin: no rash
Psychiatric: Responds to voice, not oriented
Extremities: no edema. no calf tenderness. negative homans. good distal pulses
Course
Orders/Labs/Results
Orders:
Orders
09/02/23 11:00
Electrocardiogram (*1) Urgent
Reason for Study: Other
Other Reason for Exam: Possible Sepsis
Cardiac Monitoring- Treatment ONCE
EKG- Treatment ONCE
IV Insert/Care/Rem.- Treatment PRN
Straight cath- Treatment ONCE
O2 Therapy [RESP] Urgent
Titrate/Wean O2 to maintain O2 sat greater than (%): 93
Special Instructions: TO MAINTAIN CONTINUOUS O2 SATS > OR = 93%
Pulse Ox/cont/shift [RESP] Urgent
Quantity: 1
Special Instructions: CONTINUOUS
09/02/23 11:03
Basic Metabolic Panel Urgent
Complete Blood Count/With Diff Urgent
09/02/23 11:19
Lactic Acid Q4H
Comment: ON ICE, CANCEL 2ND ORDER IF FIRST LACTIC ACID LEVEL <2
Blood Culture Q30M
MONSERRAT Source: Blood/Venous
Specimen Description:
Date Specimen was Collected: 09/02/23
Time Specimen was Collected: 11:00
Comment: FROM 2 SEPARATE SITES
09/02/23 11:33
COVID-19 Antigen Urgent
Source: Nasal Swab
Blood Culture Q30M
MONSERRAT Source: Blood/Venous
Specimen Description:
Comment: FROM 2 SEPARATE SITES
Influenza A+B Rapid Molecular Urgent
MONSERRAT Source: Nasal Swab
Specimen Description:
09/02/23 11:34
Urinalysis Reflex To Culture Urgent
Date Specimen was Collected: 09/02/23
Time Specimen was Collected: 11:00
Urine Microscopic Reflex Cult Urgent
Urine Culture Urgent
MONSERRAT Source: U
Specimen Description:
Date Specimen was Collected: 09/02/23
Time Specimen was Collected: 11:00
09/02/23 11:45
Pro-BNP [NT-proBNP] Urgent
Troponin I Urgent
09/02/23 11:48
CR Chest Portable - 1 View Urgent
Comment:
Reason For Exam: fever, hypoxia
Reason Study Needs to be Portable: Patient Unstable
09/02/23 11:55
Comprehensive Metabolic Panel Urgent
09/02/23 13:37
Cefepime HCl [Maxipime] 2,000 mg IV NOW STA
09/02/23 14:04
Sterile Water [Sterile Water For Injection] [address] .[address]
09/02/23 15:35
Admit/Transfer Patient As Directed
Co-Sign Provider:
Level of Care: Inpatient admission
Assign to:: Medical/Surgical
Physician / Group: apolinar
Diagnosis: sepsis aspiration PNA
Reason for Hospitalization: sepsis aspiration PNA
Expected length of stay greater than two midnights?: Yes
ELOS- Estimated Length of Stay in days: 2
I certify the patient meets the requirements for IP care: Yes
09/02/23 15:36
Code Status As Directed
Resuscitation Status: Do not resuscitate
Reached after discussion with pt or family/Healthcare POA: Yes
DNR Bracelet Application ONCE
09/02/23 15:39
Blood Bank Products [* Blood Bank Products] Routine
Blood Bank Products: *Packed RBC Leuko(PRBC's)
Quantity: 1
Transfuse Today: Yes
Reason: Anemia
Enema As Directed
Type: Milk and molasses
Amount: 1
09/02/23 16:14
Type+Screen Urgent
BBK Wristband Number:
09/02/23 17:04
0.9% Sodium Chloride 1000 ml [Nss] 1,000 ml IV 80 mls/hr
Acetaminophen [Tylenol] 650 mg PO Q4HPRN PRN
Benzonatate [Tessalon Perles] 100 mg PO BIDPRN PRN
Bisacodyl [Dulcolax] 10 mg RECTAL DAILY PRN
Bismuth Subsalicylate [[place] Bismuth] 524 mg PO TIDPRN PRN
Meropenem [Merrem] 1,000 mg IV Q12H
Ondansetron Injectable [Zofran] 4 mg IV Q6HPRN PRN
Quetiapine Fumarate [Seroquel] 25 mg PO HSPRN PRN
09/02/23 17:04
Activity As Directed
Activity Level: As Tolerated
Pneumatic Compression Sleeves As Directed
Type: Knee high
Vital Signs As Directed
Frequency: Per unit guidelines
DX Deep Vein Thrombosis Video Routine
09/02/23 20:00
Buspirone [Buspar] 10 mg PO BID
Docusate W/Senna [Senokot-S] 1 tablet PO BID
Duloxetine Delayed Release [Cymbalta Delayed Release] 30 mg PO BID
Lactobac/Bifidobac [Visbiome] 1 cap PO BID
Memantine HCl [Namenda] 10 mg PO BID
Metoprolol Xl [Toprol Xl] 50 mg PO BID
Pantoprazole [Protonix] 40 mg PO BID
Sennosides [Senokot] 17.2 mg PO BID
fluticasone propionate 1 spray NASAL BID
09/02/23 22:00
Amlodipine [Norvasc] 10 mg PO HS
Atorvastatin [Lipitor] 40 mg PO HS
Benzonatate [Tessalon Perles] 100 mg PO HS
Loratadine [Claritin] 10 mg PO HS
melatonin 20 mg PO HS
03/30/24 07:59
Complete Blood Count/With Diff IN AM
Comprehensive Metabolic Panel IN AM
09/03/23 08:00
Amiodarone [Pacerone] 200 mg PO DAILY
09/03/23 12:00
Polyethylene Glycol Powder [Miralax] 17 grams PO NOON
Tamsulosin [Flomax] 0.4 mg PO NOON
Abnormal Lab Results
09/02/23 09/02/23 09/02/23
11:03 11:34 11:55
WBC 21.8 H 10^3/uL
(4.8-10.8)
RBC 2.89 L 10^6/uL
(4.20-5.40)
Hgb 7.4 L g/dL
(12.0-16.0)
Hct 23.8 L %
(37.0-47.0)
MCH 25.6 L pg
(27.0-31.0)
MCHC 31.1 L g/dL
(33.0-37.0)
RDW 16.7 H %
(11.5-14.5)
MPV 10.7 H fL
(7.4-10.4)
Abs Immat Gran (auto) 0.1 H 10^3/uL
(0-0.05)
Absolute Neuts (auto) 18.7 H 10^3/uL
(1.4-6.5)
Absolute Monos (auto) 1.7 H 10^3/uL
(0.1-0.6)
Immature Gran % 0.6 H %
(0-0.5)
Neutrophils % 85.5 H %
(42.2-75.2)
Lymphocytes % 6.0 L %
(20.5-51.1)
Sodium 130 L mmol/L 133 L mmol/L
(135-145) (135-145)
Chloride 96 L mmol/L
(98-107)
Carbon Dioxide 31 H mmol/L
(22-30)
BUN 32 H mg/dl 30 H mg/dl
(7-17) (7-17)
Creatinine 1.1 H mg/dL
(0.6-1.0)
Calcium 7.9 L mg/dl 8.2 L mg/dl
(8.4-10.2) (8.4-10.2)
Total Protein 4.7 L g/dl
(6.3-8.2)
Albumin 2.3 L g/dl
(3.5-5.0)
Leukocyte Esterase Rfl Trace A
(Negative)
Urine WBC (Reflex) 26-30 A /HPF
(0-5)
Urine Bacteria (Reflex) Few A
(Negative)
09/02/23 11:03
09/02/23 11:55
Vital Signs
Initial and Last Documented VS:
Initial Vital Signs
Temp Pulse Resp Pulse Ox
100.9 F H 76 17 77
09/02/23 10:58 09/02/23 10:58 09/02/23 10:58 09/02/23 10:58
Last Documented Vital Signs
Temp Pulse Resp BP Pulse Ox
98.4 F 78 16 138/72 97
09/04/23 15:00 09/04/23 15:00 09/04/23 15:00 09/04/23 15:00 09/04/23 15:00
MDM/Problems Addressed
Differential Diagnosis Includes:
Bilateral pneumonia, UTI
MDM/Problems Addressed:
88-year-old female with fever, bilateral pneumonia, UTI. Admit to hospitalist.
Chronic conditions affecting care: Other (Dementia)
Acute Exacerbation and/or Progression of Chronic Illness: Other (Dementia)
*Radiology
Radiology exam reviewed: radiology read reviewed (Chest x-ray shows bilateral pneumonia)
*Pulse Oximetry
Patient hypoxic: yes
*EKG
Interpreted by ED Provider?: Yes
EKG Intrepretation Date: 09/04/23
EKG Intrepretation Time: 11:25
Interpretation: abnormal
Comparison EKG: changes noted
Heart Rate: 71
Rate: normal
Rhythm: sinus
[place]: normal axis
Interval: normal interval
QRS Pattern: normal QRS
Ischemia: no ischemia
*Drop Crew Laborer Interpretation
Rate: normal
Interpretation: normal
Heart Rate: 70
Rhythm: sinus
*Critical Care Note
Total Time (30-74mins, 75-104mins- exclusive of procedures): Not Applicable
Data Reviewed
Review of Other/Old Records Reveals: Labs (prio cr 0.7 on 08/25/2023)
Source: records
Patient Management
Social determinants of health affecting care: Living situation
Discussion with other providers: Hospitalist
Escalation/DeEscalation of care consider admission/obs:
admit indicated
ED Attending Note
-
Portions of this chart may have been created with voice recognition software.� Occasional wrong word or��sound alike� substitutions may have occurred due to the inherent limitations of voice recognition software.
Discharge Plan
Departure
Patient Disposition: Admit
Date of Disposition: 09/02/23
Time of Disposition: 13:31
Admit to: IMU
Presentation/result/management discussed w/ accepting MD/DO: Hospitalist
Condition: Fair
Discharge Problem:
Bilateral pneumonia, Acute UTI
Interventions
Interventions:
*Risk Screen - Suicide Last Done: 09/02/23 11:39
*General Assessment Last Done: 09/02/23 11:39
*Neglect/Abuse Screening Last Done: 09/02/23 11:39
ED- Fall Risk Assessment Last Done: 09/02/23 11:23
*ED COVID-19 Vaccine History Last Done: 09/02/23 11:22
*Nursing Disposition Last Done: 09/02/23 16:50
ED- Neurological Assessment Last Done: 09/02/23 11:23
ED- Cardiac Assessment Last Done: 09/02/23 11:23
Discharge Date and Time
Discharge Date/Time: 09/02/23 16:50
[2023-09-02 12:05] LABS: Urine Albumin Trace (Neg - Trace); Urine Bilirubin Negative (Negative); Urine Character Clear (Clear); Urine Color Yellow; Urine Glucose Negative (Negative); Urine Ketone Negative (Negative); Urine Leukocyte Trace (Negative); Urine Nitrite Negative (Negative); Urine Occult Blood Negative (Negative); Urine Specific Gravity 1.015 (<1.030); Urine Urobilinogen Negative (Neg - 1+)
[2023-09-02 12:19] LABS: Urine Bacteria Few (Negative); Urine Squamous Cell 0-2 /LPF (Few)
[2023-09-02 12:20] LABS: Urine Red Blood Cell 0-2 /HPF (0-2); Urine White Cell 26-30 /HPF (0-5)
[2023-09-02 12:35] LABS: ALT (SGPT) 17 U/L (0-35); AST (SGOT) 16 U/L (14-36); Albumin 2.3 g/dl (3.5-5.0); Alkaline Phosphatase 109 U/L (38-126); Blood Urea Nitrogen 30 mg/dl (7-17); Calcium 8.2 mg/dl (8.4-10.2); Carbon Dioxide 31 mmol/L (22-30); Chloride 96 mmol/L (98-107); Estimated Creatinine Clearance 32 ml/min; Glucose 97 mg/dl (70-99); Potassium 3.8 mmol/L (3.5-5.1); Sodium 133 mmol/L (135-145); Total Bilirubin 0.6 mg/dl (0.2-1.3); Total Protein 4.7 g/dl (6.3-8.2); eGFR 48.63
[2023-09-02 12:37] LABS: NT-proBNP 2280 pg/ml; Troponin I 0.012 ng/ml
[2023-09-02 13:06] LABS: COVID-19 Antigen Negative (Negative)
--- NOTE | 2023-09-02 14:10 | PHANOTE ---
Addendum entered by Aaron Carty 09/02/23 14:57:
09/02/2023, Seriously, confirmed Benzonatate 100 mg with pt.'s [facility] in [place].
Original Note:
09/02/2023, Seriously, spoke to pt.'s daughter to obtain pt.'s med. history; daughter states that pt. takes Benzonatate 100 mg capsule HS and BIDPRN; however, could not find this med. in pharmacy fill data or [facility] records.
[2023-09-02] MEDS: MAXIPIME 2000 MG IV (14:30)
--- NOTE | 2023-09-02 15:43 | HPS.HSE ---
Family Physician
-
Family Physician: Ulices Kong MD, Resident
Chief Complaint
-
altered mental status
History of Present Illness
88-year-old female past medical history of dementia, aspiration pneumonia, lung cancer on Keytruda, urinary retention, Pseudomonas bacteriuria, anemia, hypertension, paroxysmal atrial fibrillation not on anticoagulation, hyperlipidemia, chronic back
pain/neuropathy, spinal stenosis, CVA, hemorrhoids, anxiety/depression, peptic ulcer disease, recurrent UTIs, presenting for increased confusion. EMS found patient to be hypoxic to 85% on room air.
As per daughter patient was completely out of it today. Patient looks more pale. No blood in the stool or black stool. Her abdomen has been more distended and her last bowel movement may have been 2 or 3 days ago despite taking stool softeners.
Daughter gave enema yesterday. No significant cough. Patient did have some heartburn and an episode of vomiting yesterday. Her urine was noted to be quite dark.
She was admitted recently from 08/19 to 08/24 for altered mental status and fever. She was treated initially with vancomycin for aspiration pneumonia a developed 'red man' syndrome versus anaphylactic reaction so antibiotics were switched to
meropenem which she completed 5-day course. She also had Pseudomonas bacteriuria. She also had heme positive stool for which GI recommended conservative approach.
Medical History
Past Medical History
Past Medical History: Reports Other (dementia, aspiration pneumonia, lung cancer on Keytruda, urinary retention, Pseudomonas bacteriuria, anemia, hypertension, paroxysmal atrial fibrillation not on anticoagulation, hyperlipidemia, chronic back
pain/neuropathy, spinal stenosis, CVA, hemorrhoids, anxiety/depression, peptic ulcer disease,)
Past Surgical History: Reports None
Social History
Tobacco: Non-smoker
Alcohol: None
Drug: None
Family History
Family History: Not pertinent
Allergies / Home Medications
Allergies reflects when Allergies were last updated in [facility].
Home Medications with original date entered in [facility]
Allergy/Medication List:
Allergies
Allergy/AdvReac Type Severity Reaction Status Date / Time
gabapentin Allergy see below Verified 05/28/22 15:28
lorazepam Allergy Unknown Verified 05/24/22 20:12
vancomycin Allergy Anaphylaxis Verified 08/23/23 20:33
Home Medications
amiodarone 200 mg tablet 200 mg PO DAILY Arrhythmia 05/08/23
atorvastatin 40 mg tablet 40 mg PO HS High Cholesterol 05/08/23
buspirone 10 mg tablet 10 mg PO BID Mental Health/Anxiety 05/08/23
duloxetine 30 mg capsule,delayed release 30 mg PO BID Mental Health/Anxiety 05/08/23
gabapentin 300 mg capsule 300 mg PO HS Neurological Condition 05/08/23
melatonin 10 mg tablet 20 mg PO HS Sleep 05/08/23
memantine 10 mg tablet 10 mg PO BID Alzheimer's 05/08/23
methenamine hippurate 1 gram tablet 1 g PO BID Urinary Issue 05/08/23
metoprolol succinate 50 mg tablet,extended release 24 hr 50 mg PO BID Blood Pressure 05/08/23
pantoprazole 40 mg tablet,delayed release 40 mg PO BID Gastrointestinal Issue 05/08/23
quetiapine 25 mg tablet 25 mg PO DAILY@1500 PRN Mental Health/Anxiety 05/08/23
sennosides 8.6 mg-docusate sodium 50 mg tablet (Senna Plus) 2 tab-cap PO BID Constipation 05/08/23
Lactobac no.2-Bifidobac no.1-S. thermo 112.5 billion cell capsule (Visbiome) 1 cap PO BID Gastrointestinal Issue 08/20/23
amlodipine 10 mg tablet 10 mg PO HS Blood Pressure 08/20/23
aspirin 81 mg tablet,delayed release 81 mg PO DAILY Blood Clot Prevention/Tx 08/20/23
benzonatate 100 mg capsule 100 mg PO BID PRN cough 08/20/23
benzonatate 100 mg capsule 100 mg PO HS 08/20/23
bisacodyl 10 mg rectal suppository 10 mg MS DAILY PRN constipation 08/20/23
fluticasone propionate 50 mcg/actuation nasal spray,suspension 1 spray intranasal BID Allergies 08/20/23
loratadine 10 mg tablet 10 mg PO HS Allergies 08/20/23
pembrolizumab 25 mg/mL intravenous solution (Keytruda) 0 mg IV Q3W ANTONEOPLASTIC 08/20/23
polyethylene glycol 3350 17 gram oral powder packet (HealthyLax) 17 g PO NOON Constipation 08/20/23
quetiapine 25 mg tablet 25 mg PO HSPRN PRN mental health/anxiety 08/20/23
quetiapine 25 mg tablet 75 mg PO HS 08/20/23
Pepcid 1 tab PO HSPRN PRN stomach discomfort 09/02/23
bismuth subsalicylate 262 mg/15 mL oral suspension (Pepto-Bismol) 524 mg PO TIDPRN PRN stomach discomfort 09/02/23
sennosides 8.6 mg tablet (senna) 17.2 mg PO BID 09/02/23
tamsulosin 0.4 mg capsule (Flomax) 0.4 mg PO NOON 09/02/23
Review of Systems
-
History Source: Patient
A 12 point ROS was completed and negative except as noted: Yes
Constitutional: Reports No Symptoms
EENT: Reports No Symptoms
Respiratory: Reports No Symptoms
Cardiac: Reports No Symptoms
Abdomen/GI: Reports See HPI
: Reports No Symptoms
Musculoskeletal: Reports No Symptoms
Skin: Reports No Symptoms
Neurological: Reports No Symptoms
Endocrine: Reports No Symptoms
Hematologic/Lymphatic: Reports No Symptoms
Psych: Reports No Symptoms
Physical Exam
Vital Signs
Vital Signs
Temp Pulse Resp BP Pulse Ox
100.9 F H 71 21 111/43 98
09/02/23 10:58 09/02/23 15:15 09/02/23 15:15 09/02/23 15:00 09/02/23 15:15
Physical Exam
General: Well Developed, Well Nourished and No Apparent Distress
HEENT: NormoCephalic, Moist mucous membranes and Atraumatic
Respiratory: Clear
Cardiac: S1/S2 and Regular Rhythm; No Murmur or Rub
GI: Soft, Normal Bowel Sounds, Tender and Distended; No Organomegaly
Rectal: Deferred by Provider
Musculoskeletal: No Clubbing, No Cyanosis and No Edema
Skin: No Rash
Neuro: Nonfocal/grossly intact
Laboratory Results
-
09/02/23 11:03
09/02/23 11:55
Laboratory Results
Lactic Acid Cancelled 09/02/23 15:00
Total Bilirubin 0.6 mg/dl (0.2-1.3) 09/02/23 11:55
AST 16 U/L (14-36) 09/02/23 11:55
ALT 17 U/L (0-35) 09/02/23 11:55
Alkaline Phosphatase 109 U/L (38-126) 09/02/23 11:55
Troponin I 0.012 ng/ml 09/02/23 11:45
Data Reviewed
-
Lab Data: Labs Reviewed by me
Old Records: Reviewed
Impression/Plan
-
IMPRESSION:
PLAN:
# Recurrent sepsis (fever, leukocytosis )/hypoxic respiratory failure/metabolic encephalopathy secondary to likely recurrent aspiration pneumonia
-Worsening leukocytosis from discharge
-COVID and influenza negative
-Check blood cultures
-IV fluids
-Meropenem, given patient had Pseudomonas resistant to Zosyn in the past
-Soft and bite-size diet with thin liquids as per recent speech and swallow
-Hold sedating medications such as gabapentin, Seroquel
# Recent Pseudomonas bacteruria
-Urinalysis shows 26-30 WBCs at this time
-Check urine culture
# Acute on chronic anemia likely upper GI bleeding from gastritis/esophagitis
-Hemoglobin 7.4, downtrending from baseline of 9-10
-Check iron studies
-No plan for EGD as per GI last admission
-Continue Protonix twice daily
-Hold aspirin
-Type and screen
-1 unit of blood transfusion
-Clear liquid diet
-GI consulted again
# Abdominal distention secondary to constipation
-Continue senna, MiraLAX
-Continue bisacodyl suppository
-Milk of molasses enema
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
Keytruda associated cough
-Continue benzonatate
History of urinary retention
-Bladder scan protocol
-Continue tamsulosin
Essential hypertension
-Continue amlodipine
Paroxysmal atrial fibrillation
-Not on anticoagulation
-Continue amiodarone, metoprolol
Hyperlipidemia
-Continue statin
Dementia with behavioral disturbances/agitation
Anxiety/depression
-Continue BuSpar, duloxetine, Namenda
-Hold Seroquel due to mental status
Chronic back pain/neuropathy/amatory dysfunction/scoliosis/spinal stenosis
-Hold gabapentin due to sedation
History of CVA
-Hold aspirin
-Suspected to be cardiac bowel, not on anticoagulation due to high risk of bleeding
History of hemorrhoids/small bowel resection with subsequent ex lap secondary to dehiscence of anastomosis
Peptic ulcer disease
Hypoalbuminemia
Ex-smoker
DNR/DNI
DVT prophylaxis�SCDs
clear liquid diet
[2023-09-02] MEDS: NSS 1000 IV (18:13)
[2023-09-02] MEDS: STERILE WATER FOR INJECTION 10 ML IV (18:14)
[2023-09-02] MEDS: MERREM 500 MG IV (18:14)
[2023-09-02] MEDS: TOPROL XL 50 MG PO (20:18)
[2023-09-02] MEDS: PROTONIX 40 MG PO (20:19)
[2023-09-02] MEDS: VISBIOME 1 CAP PO (20:19)
[2023-09-02] MEDS: CYMBALTA DELAYED RELEASE 30 MG PO (20:19)
[2023-09-02] MEDS: NAMENDA 10 MG PO (20:19)
[2023-09-02] MEDS: SENOKOT 17.1999999999999993 MG PO (20:19)
[2023-09-02] MEDS: SENOKOT-S 1 TABLET PO (20:19)
[2023-09-02] MEDS: BUSPAR 10 MG PO (20:19)
[2023-09-02] MEDS: LIPITOR 40 MG PO (23:25)
[2023-09-02] MEDS: NORVASC 10 MG PO (23:25)
[2023-09-02] MEDS: CLARITIN 10 MG PO (23:25)
[2023-09-02] MEDS: TESSALON PERLES 100 MG PO (23:26)
[2023-09-03 00:40] VITALS: BP 132/64
[2023-09-03] MEDS: OFIRMEV 100 IV (01:46)
[2023-09-03] MEDS: STERILE WATER FOR INJECTION 10 ML IV ×3 (02:08→17:29)
[2023-09-03] MEDS: MERREM 500 MG IV ×3 (02:08→17:29)
--- NOTE | 2023-09-03 06:46 | CON.GI ---
Addendum entered and electronically signed by Grace Gonzales MD 09/03/23 12:24:
I saw and examined the patient.
The METAPHYSICS TEACHER or PA's note was reviewed and I agree with the note.
Comment:
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 Recent admission with conservative measures. Some outpatient constipation.
soft, nontender
impression:
heme pos stool
anemia
constipaton
plan:
receiving MOM enema now
follow hgb
diet per recent speech eval
PPI bid
Addendum entered and electronically signed by BEBO Turner 09/03/23 09:39:
Pt with recent VSE and speech eval. cont clear diet stool clearing out then advance to [id number] soft and bite sized and thin liquids with reflux precautions
Original Note:
Consultation
-
Date/Time Consultation Requested: 09/02/23 1395
Date/Time Consultation Performed: 09/03/23 0730
Requesting Provider: Niki Irene MD
Performing Provider: BEBO Booth, Grace Gonzales MD
Reason for Consultation: anemia
Medical History
Chief Complaint / HPI
Chief Complaint: Heme positive stool
History of Present Illness:
Patient is an 88-year-old female with history of metastatic lung cancer on palliative care on Keytruda therapy (no treatment recently due to med issues), afib not on AC, GERD, ulcer in her 30's. CVA, hemorrhoids, small bowel resection with
subsequent ex lap secondary to dehiscence of anastomosis, anxiety/depression, dementia, spinal stenosis with recent admission last week with dark stool then sepsis and PNA. She was seen by GI for heme + anemia and given medical status with patient
on palliative care and risks of procedure family wished to hold off on GI testing and was to continue PPI BID for 8 weeks. There was also concern for red man syndrome with abx use. She now returns with recurrent sepsis with worsening leukocytosis
along with worsening anemia with prior hbg 9-10 now down to 7.4. She also has concern for constipation with need for some change in laxatives at home due to some difficulty with swallowing. She was also noted with abdominal distention. No NSAID
use other than chronic ASA use.
In review with daughter Pt with recent episode of belching when PPI was missed a few days ago. She also has had nausea/vomiting and decreased appetite after admission with pale appearance. She had + constipation at home no stools for 3
days. Was due to get VNA out for assist with enema but did not happen. Per family pt has been on Miralax daily, senna BID and [employer] stool softener BID and gentle laxative. No blood or black in stools. Daughter also admits to worsening
dysphagia and GERD with constipation. She also had back pain. No hx EGD but esophagram 2019 with no ulcer, presbyesophagus, small HH and GERD. colonoscopy years ago. daughter unsure of results.
Past Medical History
Past Medical History: Arrhythmias (PAF not on anticoagulation), Cancer (lung CA on Ketruda), CVA, GERD, HTN, Hypercholesterolemia, Psychiatric (anxiety/depression, PUD) and Other (dementia, aspiration PNA, urinary retention, anemia, chronic back
pain/neuropathy, spinal stenosis, hemorrhoids, PUD)
Past Surgical History: Bowel Resection (for obstruction, adhesions), Gynecological (Oophorectomy) and Other ( small bowel resection with subsequent ex lap secondary to dehiscence of anastomosis)
Social History
Tobacco: Former Smoker
Alcohol: None
Drug: None
Living: With Family
Employment: Retired
Family History
Family History: Other (no known family hx colon CA )
Allergies / Home Medications
Allergy/AdvReac Type Severity Reaction Status Date / Time
gabapentin Allergy see below Verified 05/28/22 15:28
lorazepam Allergy Unknown Verified 05/24/22 20:12
vancomycin Allergy Anaphylaxis Verified 08/23/23 20:33
�Medication �Instructions �Recorded
amiodarone 200 mg tablet 200 mg PO DAILY Arrhythmia 05/08/23
atorvastatin 40 mg tablet 40 mg PO HS High Cholesterol 05/08/23
buspirone 10 mg tablet 10 mg PO BID Mental Health/Anxiety 05/08/23
duloxetine 30 mg capsule,delayed 30 mg PO BID Mental Health/Anxiety 05/08/23
release
gabapentin 300 mg capsule 300 mg PO HS Neurological Condition 05/08/23
melatonin 10 mg tablet 20 mg PO HS Sleep 05/08/23
memantine 10 mg tablet 10 mg PO BID Alzheimer's 05/08/23
methenamine hippurate 1 gram tablet 1 g PO BID Urinary Issue 05/08/23
metoprolol succinate 50 mg 50 mg PO BID Blood Pressure 05/08/23
tablet,extended release 24 hr
pantoprazole 40 mg tablet,delayed 40 mg PO BID Gastrointestinal Issue 05/08/23
release
quetiapine 25 mg tablet 25 mg PO DAILY@1500 PRN Mental 05/08/23
Health/Anxiety
sennosides 8.6 mg-docusate sodium 2 tab-cap PO BID Constipation 05/08/23
50 mg tablet (Senna Plus)
Lactobac no.2-Bifidobac no.1-S. 1 cap PO BID Gastrointestinal Issue 08/20/23
thermo 112.5 billion cell capsule
(Visbiome)
amlodipine 10 mg tablet 10 mg PO HS Blood Pressure 08/20/23
aspirin 81 mg tablet,delayed 81 mg PO DAILY Blood Clot 08/20/23
release Prevention/Tx
benzonatate 100 mg capsule 100 mg PO BID PRN cough 08/20/23
benzonatate 100 mg capsule 100 mg PO HS 08/20/23
bisacodyl 10 mg rectal suppository 10 mg MN DAILY PRN constipation 08/20/23
fluticasone propionate 50 1 spray intranasal BID Allergies 08/20/23
mcg/actuation nasal
spray,suspension
loratadine 10 mg tablet 10 mg PO HS Allergies 08/20/23
pembrolizumab 25 mg/mL intravenous 0 mg IV Q3W ANTONEOPLASTIC 08/20/23
solution (Keytruda)
polyethylene glycol 3350 17 gram 17 g PO NOON Constipation 08/20/23
oral powder packet (HealthyLax)
quetiapine 25 mg tablet 25 mg PO HSPRN PRN mental 08/20/23
health/anxiety
quetiapine 25 mg tablet 75 mg PO HS 08/20/23
Pepcid 1 tab PO HSPRN PRN stomach 09/02/23
discomfort
bismuth subsalicylate 262 mg/15 mL 524 mg PO TIDPRN PRN stomach 09/02/23
oral suspension (Pepto-Bismol) discomfort
sennosides 8.6 mg tablet (senna) 17.2 mg PO BID 09/02/23
tamsulosin 0.4 mg capsule (Flomax) 0.4 mg PO NOON 09/02/23
Review of Systems
-
History Source: Patient and Family
Constitutional: Reports Fever (99 range 100.4 at night )
Respiratory: Reports Trouble Breathing
Cardiac: Reports Chest Pain
Abdomen/GI: Reports Constipated
Musculoskeletal: Reports Other (back pain )
Neurological: Reports Weakness
Endocrine: Reports No Symptoms
Hematologic/Lymphatic: Reports No Symptoms
Vital Signs
Temp Pulse Resp BP Pulse Ox
100.9 F H 86 20 132/64 98
09/03/23 00:40 09/03/23 00:40 09/03/23 00:40 09/03/23 00:40 09/03/23 00:40
Physical Exam
Exam
General: Other (chronic ill appearing nonverbal in exam )
HEENT: Normocephalic and Anicteric
Respiratory: Other (decreased )
Cardiac: Regular Rhythm
GI: Soft, Non Tender and Distended (mild )
Genito-urinary: No Costovertebral Tender
Musculoskeletal: No Clubbing and No Cyanosis
Skin: Warm and Dry
Neuro: Awake and Other (non verbal in exam )
Psych: Calm
Results
WBC 21.8 10^3/uL (4.8-10.8) H 09/02/23 11:03
Hgb 7.4 g/dL (12.0-16.0) L 09/02/23 11:03
Hct 23.8 % (37.0-47.0) L 09/02/23 11:03
MCV 82.4 fL (81.0-99.0) 09/02/23 11:03
Plt Count 304 10^3/uL (130-400) 09/02/23 11:03
Absolute Neuts (auto) 18.7 10^3/uL (1.4-6.5) H 09/02/23 11:03
Sodium 133 mmol/L (135-145) L 09/02/23 11:55
Potassium 3.8 mmol/L (3.5-5.1) 09/02/23 11:55
Chloride 96 mmol/L (98-107) L 09/02/23 11:55
Carbon Dioxide 31 mmol/L (22-30) H 09/02/23 11:55
BUN 30 mg/dl (7-17) H 09/02/23 11:55
Creatinine 1.1 mg/dL (0.6-1.0) H 09/02/23 11:55
Calcium 8.2 mg/dl (8.4-10.2) L 09/02/23 11:55
Total Bilirubin 0.6 mg/dl (0.2-1.3) 09/02/23 11:55
AST 16 U/L (14-36) 09/02/23 11:55
ALT 17 U/L (0-35) 09/02/23 11:55
Alkaline Phosphatase 109 U/L (38-126) 09/02/23 11:55
Diagnostic Image Results:
05/13/23 abd X ray
Small to moderate volume colonic stool most prominent in the left colon.
Nonspecific intestinal bowel gas pattern
09/02/23 CXR
1. Patchy bibasilar opacities, which may represent subsegmental atelectasis or pneumonia.
2. Mild cardiomegaly without evidence of decompensated congestive heart failure.
Prior GI Procedures:
EGD: EGD several years ago
Colonoscopy: unsure
Assessment / Plan
-
Patient is an 88-year-old female with history of metastatic lung cancer on palliative care on Keytruda therapy (no treatment recently due to med issues), afib not on AC, GERD, ulcer in her 30's. CVA, hemorrhoids, small bowel resection with
subsequent ex lap secondary to dehiscence of anastomosis, anxiety/depression, dementia, spinal stenosis with recent admission last week with dark stool then sepsis and PNA. She was seen by GI for heme + anemia and given medical status with patient
on palliative care and risks of procedure family wished to hold off on GI testing and was to continue PPI BID for 8 weeks. There was also concern for red man syndrome with abx use. She now returns with recurrent sepsis with worsening leukocytosis
along with worsening anemia with prior hbg 9-10 now down to 7.4. She also has concern for constipation with need for some change in laxatives at home due to some difficulty with swallowing. She had recent belching with vomiting noted when she has
constipation. She was also noted with abdominal distention. No NSAID use other than chronic ASA use. Per family pt has been on Miralax daily, senna BID and [employer] stool softener BID and gentle laxative. No hx EGD but esophagram 2019 with
no ulcer, presbyesophagus, small HH and GERD. colonoscopy years ago. daughter unsure of results.
Impression:
-recurrent sepsis/PNA
-recent pseudomonas bacteria
-worsening anemia with heme + stool
-abdominal distention with concern for constipation
-Metastatic lung CA on Keytruda on Palliative care
-leukocytosis
-recent concern for red man syndrome with vanco use
other medical problems:
-hx PUD
-HTN
-afib not on anticoagulation
-dementia
-GERD
-CVA
-axiety/depression
-spinal stenosis/chronic back pain
-History of hemorrhoids
-small bowel resection with subsequent ex lap secondary to dehiscence of anastomosis
PLAN:
Etiology of anemia with heme + stool related upper vs lower GI source some worsening anemia since last admission
currently with noted sepsis and PNA/leukocytosis and recent fever
s/p 1 unit transfused overnight repeat hbg pending
cont PPI BID
reviewed with daughter will hold EGD with multiple other medical issue for now and monitor if any signs of aggressive bleeding
pt still with some distention
for enema this am
will check abd X ray in AM to see if clearing out
reviewed with daughter on 2 sennna medications-- daughter to bring in home meds to clarify
reviewed with Daughter Marquis Carpenter [phone] for update and history
-
-
Thank you for consultation and allowing me to participate in the patient's care. Please call the business continuity specialist GI physician during the after hours with any questions or concerns.
[2023-09-03 07:00] VITALS: BP 116/57
--- NOTE | 2023-09-03 08:08 | W.PN.HOSP.TC ---
Today's Communication/Plan
-
IV meropenem. ID and GI consults. Speech therapy swallowing eval.
Assessment / Plan
Assessment / Plan
Physical Exam
General: Acute and chronically ill
HEENT: NormoCephalic, Dry mucous membranes and Atraumatic
Respiratory: Clear
Cardiac: S1/S2 and Regular Rhythm; No Murmur or Rub
GI: Soft, Normal Bowel Sounds, Tender and Distended; No Organomegaly
Rectal: Deferred by Provider
Musculoskeletal: No Clubbing, No Cyanosis and No Edema
Skin: No Rash
Neuro: Nonfocal/grossly intact
A/P:
# Recurrent sepsis (fever, leukocytosis )/hypoxic respiratory failure/metabolic encephalopathy secondary to likely recurrent aspiration pneumonia
-Worsening leukocytosis from discharge but improving now. WBC 21.8--> 17.9
-ID consulted today--> appreciated input; they recommend to continue current antibiotics and follow-up cultures.
-COVID and influenza negative
-Blood cultures pending but no growth so far
-Urine cultures no growth
-Continue IV fluids
-Continue IV meropenem
-Clear liquid diet and speech therapy eval
-Hold sedating medications such as gabapentin, Seroquel
-Updated daughter today on 09/02
# Recent Pseudomonas bacteruria
-Urinalysis shows 26-30 WBCs at this time
-Urine culture no growth
# Acute on chronic anemia likely upper GI bleeding from gastritis/esophagitis
-Hemoglobin 7.4, downtrending from baseline of 9-10-->After blood transfusion, today hemoglobin 9.1
-Will change to oral Protonix to IV 40 mg twice a day due to concerns of GI bleed and also she might or might not take her oral medications.
-Checking iron studies
-No plan for EGD as per GI last admission--> f/u their recommendations this time.
-Continue Protonix twice daily
-Hold aspirin
-Type and screen
-1 unit of blood transfusion
-Clear liquid diet
-GI consulted--> GI seeing patient today.
# Abdominal distention secondary to constipation
-Continue senna, MiraLAX
-Continue bisacodyl suppository
-Milk of molasses enema
-Obtain abdominal x-ray per GI
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
On palliative Keytruda--> associated cough
-Continue benzonatate
History of urinary retention
-Bladder scan protocol
-Continue tamsulosin (as outpatient they felt this was the culprit of her symptoms but this is not)
Essential hypertension
-Continue amlodipine
Paroxysmal atrial fibrillation
-Not on anticoagulation
-Continue amiodarone, metoprolol
Hyperlipidemia
-Continue statin
Dementia with behavioral disturbances/agitation
Anxiety/depression
-Continue BuSpar, duloxetine, Namenda
-Hold Seroquel due to mental status
Chronic back pain/neuropathy/amatory dysfunction/scoliosis/spinal stenosis
-Hold gabapentin due to sedation
History of CVA
-Hold aspirin
-Suspected to be cardiac bowel, not on anticoagulation due to high risk of bleeding
History of hemorrhoids/small bowel resection with subsequent ex lap secondary to dehiscence of anastomosis
Peptic ulcer disease
Hypoalbuminemia
Ex-smoker
DNR/DNI
DVT prophylaxis�SCDs
Total time spent on today's encounter was 52 minutes. More than 50% of time spent in counseling and coordination with family members.
Anticipated Discharge: > 48 hours
Subjective/Interval History
-
Date of Service: September 03, 2023
Patient seen and examined. Not much information from patient due to dementia. Oxygenation stable and afebrile.
Objective Data
-
Labs:
Laboratory Results
09/03/23
07:59
WBC Pending
Hgb Pending
Hct Pending
Plt Count Pending
Sodium Pending
Potassium Pending
Chloride Pending
Carbon Dioxide Pending
BUN Pending
Creatinine Pending
Glucose Pending
Calcium Pending
Total Bilirubin Pending
AST Pending
ALT Pending
Alkaline Phosphatase Pending
Vital Signs:
Vital Signs
Temp Pulse Resp BP Pulse Ox
100.9 F H 86 20 132/64 98
09/03/23 00:40 09/03/23 00:40 09/03/23 00:40 09/03/23 00:40 09/03/23 00:40
I&O
09/02/23 09/03/23 09/04/23
06:59 06:59 06:59
Intake Total 250 / 250
Balance 250 / 250
Review of Systems
-
Unable to obtain full review of systems at this time due to: Dementia
[2023-09-03 08:53] LABS: % Basophils 0.2 % (0-2); % Eosinophils 0.6 % (0-6); % Immature Granulocytes 0.7 % (0-0.5); % Lymphocytes 4.6 % (20.5-51.1); % Monocytes 8.1 % (1.7-9.3); % Neutrophils 85.8 % (42.2-75.2); Absolute Eosinophils 0.1 10^3/uL (0-0.7); Absolute Immature Granulocytes 0.1 10^3/uL (0-0.05); Absolute Lymphocytes 0.8 10^3/uL (1.2-3.4); Absolute Monocytes 1.5 10^3/uL (0.1-0.6); Absolute Neutrophils 15.4 10^3/uL (1.4-6.5); Hematocrit 29.3 % (37.0-47.0); Mean Corp Hgb Conc. 31.1 g/dL (33.0-37.0); Mean Corpuscular Hgb 25.4 pg (27.0-31.0); Mean Corpuscular Volume 81.8 fL (81.0-99.0); Mean Platelet Volume 10.6 fL (7.4-10.4); Nucleated Red Blood Cells % 0 %; Platelet Count 301 10^3/uL (130-400); Red Blood Cell Count 3.58 10^6/uL (4.20-5.40); Red Cell Dist. Width 16.4 % (11.5-14.5); White Blood Cell Count 17.9 10^3/uL (4.8-10.8)
[2023-09-03 08:57] LABS: ALT (SGPT) 15 U/L (0-35); AST (SGOT) 17 U/L (14-36); Albumin 2.3 g/dl (3.5-5.0); Alkaline Phosphatase 122 U/L (38-126); Blood Urea Nitrogen 29 mg/dl (7-17); Calcium 7.9 mg/dl (8.4-10.2); Carbon Dioxide 29 mmol/L (22-30); Chloride 100 mmol/L (98-107); Estimated Creatinine Clearance 51 ml/min; Glucose 108 mg/dl (70-99); Potassium 3.7 mmol/L (3.5-5.1); Sodium 133 mmol/L (135-145); Total Bilirubin 0.7 mg/dl (0.2-1.3); Total Protein 4.7 g/dl (6.3-8.2); eGFR > 60.00
[2023-09-03] MEDS: CYMBALTA DELAYED RELEASE PO ×2 (09:35→10:22)
[2023-09-03] MEDS: PROTONIX PO ×2 (09:35→10:22)
[2023-09-03] MEDS: PACERONE 200 MG PO (09:37)
[2023-09-03] MEDS: TOPROL XL PO ×2 (09:38→10:23)
[2023-09-03] MEDS: NAMENDA PO ×2 (09:38→10:22)
[2023-09-03] MEDS: VISBIOME PO ×3 (09:38→19:58)
[2023-09-03] MEDS: BUSPAR PO ×2 (09:39→10:22)
[2023-09-03] MEDS: SENOKOT-S PO ×2 (09:41→10:22)
[2023-09-03] MEDS: SENOKOT PO (10:02)
[2023-09-03 10:46] LABS: Hemoglobin 9.1 g/dL (12.0-16.0)
--- NOTE | 2023-09-03 11:51 | CON.ID ---
Consultation
-
Date/Time Consultation Requested: 09/03/2023 08:13
Date/Time Consultation Performed: 09/03/2023 1145
Requesting Provider: Dr. Moseley
Performing Provider: Dr. Murry
Reason for Consultation: Sepsis
Chief Complaint / Past History
History of Present Illness
Sarah Carpenter is an 88-year-old female being evaluated at the request of Dr. Moseley in regards to sepsis. History is obtained from chart review, along with patient interview.
The patient has a significant past medical history of metastatic lung cancer, currently on palliative Keytruda therapy, but with therapy currently on hold secondary to medical issues. The patient recently was an inpatient at [facility], and
was seen by Infectious Disease and the treatment of suspected aspiration pneumonia and Pseudomonas bacteriuria. During that hospitalization fever resolved, and patient completed her course of meropenem on 08/24/2023. Thereafter, she was discharged,
but presents back to the emergency room on 09/01 secondary to increasing confusion, along with reported hypoxemia with a pulse ox of 85% on room air. Per the daughter, the patient was discharged to home where she is looked after by multiple family
members. She reports belching over the past several days and profound generalized weakness. She also reports some dark stool. Daughter noted marked decrease in oral intake over the past several days, along with dark urine.
No history is available from the patient as the daughter states she has 'stage Alzheimer's'.
Past History
Additional Past Medical History:
Dementia with Behavioral Disturbance
Met lung Ca; on Keytruda
Afib / PAF
CVA / TIA
Anxiety/depression
Chronic Pain Syndrome / Chronic Back Pain
Spinal Stenosis / Scoliosis / DDD
GERD
Hypertension
Hx Traumatic L Globe Injury
Additional Past Surgical History:
Small Bowel Resection Ex Lap secondary to dehiscence of anastomosis.
KIT
Allergy History:
gabapentin Allergy (Verified 05/28/22 15:28)
see below
lorazepam Allergy (Verified 05/24/22 20:12)
Unknown
vancomycin Allergy (Verified 08/23/23 20:33)
Anaphylaxis
Medications Reviewed: Yes
Current Antibiotics:
Meropenem 500 mg IV every 8 hours
Social History
Tobacco: Non-Smoker
Alcohol: None
Drug: None
Living: With Family
Employment: Retired
Family History
Family History: Not Pertinent
Review of Systems
Vital Signs
Temp Pulse Resp BP Pulse Ox
98.0 F 73 16 115/57 95
09/03/23 07:00 09/03/23 09:37 09/03/23 07:00 09/03/23 09:37 09/03/23 07:00
Physical Exam
Physical Exam
Constitutional: Comfortable, Chronically Ill and Non-toxic
Eyes: No Conjunctival Hemorrhage and Sclera Anicteric
Oral: No Thrush and No Ulcers
Cardiovascular: S1/S2; Negative S3/S4 or Murmur
Pulmonary: Non Labored
Gastrointestinal: Soft, Non Tender, Distended, Normal Bowel Sounds, No Rebound and No Guarding
Extremities: Negative Edema, Cyanosis or Erythema
Neurological: Awake and Alert
Psychological: Calm
Lab / Diagnostic Study Results
09/03/23 07:59
09/03/23 07:59
Abs Immat Gran (auto) 0.1 10^3/uL (0-0.05) H 09/03/23 07:59
Absolute Neuts (auto) 15.4 10^3/uL (1.4-6.5) H 09/03/23 07:59
Absolute Lymphs (auto) 0.8 10^3/uL (1.2-3.4) L 09/03/23 07:59
Absolute Monos (auto) 1.5 10^3/uL (0.1-0.6) H 09/03/23 07:59
Absolute Basos (auto) 0.0 10^3/uL (0-0.2) 09/03/23 07:59
Immature Gran % 0.7 % (0-0.5) H 09/03/23 07:59
Neutrophils % 85.8 % (42.2-75.2) H 09/03/23 07:59
Lymphocytes % 4.6 % (20.5-51.1) L 09/03/23 07:59
Monocytes % 8.1 % (1.7-9.3) 09/03/23 07:59
Eosinophils % 0.6 % (0-6) 09/03/23 07:59
Basophils % 0.2 % (0-2) 09/03/23 07:59
Lactic Acid Cancelled 09/02/23 15:00
Ur Squamous Epith Cells 0-2 /LPF (Few) 09/02/23 11:34
Microbiology Results
Micro:
09/02/23 11:33 Blood Culture - Preliminary
Blood/Venous No Growth in 24 hours- Final report to follow
09/02/23 11:19 Blood Culture - Preliminary
Blood/Venous No Growth in 24 hours- Final report to follow
09/02/23 11:34 Urine Culture - Final
Urine NO GROWTH
09/02/23 11:33 Influenza Types A & B (JAREK) - Final
Nasal Swab Negative for Influenza A & B, NAAT
Negative results must be combined with clinical observations
and patient history.
Nucleic Acid Amplification test (NAAT)performed on the
[employer] ID NOW platform.
Imaging:
09/02/2023 CXR (portable): Patchy bibasilar opacities which may represent subsegmental atelectasis or pneumonia. Mild cardiomegaly without evidence of decompensated CHF.
Assessment / Plan
Leukocytosis
Reported hypoxemia; now improved
Generalized weakness
Poor p.o. intake
REGINALD; improved
Metastatic lung cancer
Hx CVA
GERD
HTN
Dyslipidemia
Anxiety/depression
Alzheimer's disease
PAF; not on anticoagulation
Recommendations:
Continue with empiric antibiotics.
Monitor pending cultures (blood; urine)
Monitor white count and temperature curve.
Repeat blood cultures for temperature greater than 100.5 degrees.
Further antibiotic recommendations and possible de-escalation as cultures are returned and clinical status monitored.
--- NOTE | 2023-09-03 12:25 | W.PN.UPDATE ---
Update Note
Progress Note Update
for billing purposes only
[2023-09-03] MEDS: MIRALAX 17 GRAMS PO (12:33)
[2023-09-03] MEDS: FLOMAX 0.400000000000000022 MG PO (12:33)
[2023-09-03 15:00] VITALS: BP 141/56
--- NOTE | 2023-09-03 16:09 | CM ---
Spoke with pts daughter
Pt with dementia, lives with daughter, son-in law and her son in a one story home with ramp
Assist with adl's.
Has TOWER HOIST OPERATOR with [facility] 10-12 hours daily
DME include hospital bed, shower chair, wheel chair, grab bars, rolling walker
HH - active with [facility]
SNF - past [facility] x2
Daughter reports will transport home at d/c
PCP - Dr Kong
Pharm - [facility]
Plan - anticipate return to home with services - [facility]
[2023-09-03] MEDS: NSS 1000 IV (17:44)
[2023-09-03] MEDS: PROTONIX IV 40 MG IV (19:55)
[2023-09-03] MEDS: NSS (PRESERVATIVE FREE) 10 ML IV (19:56)
[2023-09-03] MEDS: NAMENDA 10 MG PO (19:58)
[2023-09-03] MEDS: CYMBALTA DELAYED RELEASE 30 MG PO (19:58)
[2023-09-03] MEDS: BUSPAR 10 MG PO (19:58)
[2023-09-03] MEDS: SENOKOT-S 1 TABLET PO (19:59)
[2023-09-03] MEDS: TOPROL XL 50 MG PO (19:59)
[2023-09-03] MEDS: NSS IV (19:59)
[2023-09-03] MEDS: LIPITOR 40 MG PO (22:03)
[2023-09-03] MEDS: TYLENOL/FEVERALL 650 MG RECTAL (22:03)
[2023-09-03] MEDS: TESSALON PERLES 100 MG PO (22:04)
[2023-09-03] MEDS: CLARITIN 10 MG PO (22:04)
[2023-09-03] MEDS: NORVASC 10 MG PO (22:04)
[2023-09-03 23:20] VITALS: BP 107/67
[2023-09-04] MEDS: NSS 1000 IV ×2 (00:10→13:59)
[2023-09-04] MEDS: STERILE WATER FOR INJECTION 10 ML IV ×4 (02:42→22:42)
[2023-09-04] MEDS: MERREM 500 MG IV ×4 (02:43→22:42)
[2023-09-04 07:00] VITALS: BP 144/63
[2023-09-04 07:20] LABS: % Basophils 0.3 % (0-2); % Eosinophils 0.9 % (0-6); % Immature Granulocytes 0.6 % (0-0.5); % Lymphocytes 4.4 % (20.5-51.1); % Monocytes 6.4 % (1.7-9.3); % Neutrophils 87.4 % (42.2-75.2); Absolute Eosinophils 0.1 10^3/uL (0-0.7); Absolute Immature Granulocytes 0.1 10^3/uL (0-0.05); Absolute Lymphocytes 0.7 10^3/uL (1.2-3.4); Absolute Neutrophils 13.2 10^3/uL (1.4-6.5); Hematocrit 29.9 % (37.0-47.0); Hemoglobin 9.4 g/dL (12.0-16.0); Mean Corp Hgb Conc. 31.4 g/dL (33.0-37.0); Mean Corpuscular Hgb 25.6 pg (27.0-31.0); Mean Corpuscular Volume 81.5 fL (81.0-99.0); Mean Platelet Volume 10.9 fL (7.4-10.4); Nucleated Red Blood Cells % 0 %; Platelet Count 320 10^3/uL (130-400); Red Blood Cell Count 3.67 10^6/uL (4.20-5.40); Red Cell Dist. Width 16.3 % (11.5-14.5); White Blood Cell Count 15.1 10^3/uL (4.8-10.8)
[2023-09-04 07:33] LABS: Blood Urea Nitrogen 22 mg/dl (7-17); Carbon Dioxide 29 mmol/L (22-30); Chloride 100 mmol/L (98-107); Estimated Creatinine Clearance 59 ml/min; Glucose 112 mg/dl (70-99); Potassium 3.8 mmol/L (3.5-5.1); Sodium 134 mmol/L (135-145); eGFR > 60.00
--- NOTE | 2023-09-04 08:26 | W.PN.HOSP.TC ---
Today's Communication/Plan
-
Antibiotics, IV meropenem. Advance diet today. Follow-up cultures.
Assessment / Plan
Assessment / Plan
Physical Exam
General: Acute and chronically ill
HEENT: NormoCephalic, Dry mucous membranes and Atraumatic
Respiratory: Clear
Cardiac: S1/S2 and Regular Rhythm; No Murmur or Rub
GI: Soft, Normal Bowel Sounds, Tender and Distended; No Organomegaly
Rectal: Deferred by Provider
Musculoskeletal: No Clubbing, No Cyanosis and No Edema
Skin: No Rash
Neuro: Alert. Disoriented. Dementia at baseline. Nonverbal due to dementia but does grimaces at times. Neurological exam unchanged from before.
A/P:
# Recurrent sepsis (fever, leukocytosis )/hypoxic respiratory failure/metabolic encephalopathy secondary to likely recurrent aspiration pneumonia
-Worsening leukocytosis from discharge but improving now. WBC 21.8--> 17.9-->15.1
-ID consulted--> appreciated input; they recommend to continue current antibiotics and follow-up cultures.
-COVID and influenza negative
-Blood cultures pending but no growth so far
-Urine cultures no growth
-Stop IV fluids today
-Continue IV meropenem
-Speech therapy eval appreciated and they recommend to upgrade to IDDSI level 4 today
-Hold sedating medications such as gabapentin, Seroquel
-Updated son today on 09/03 at bedside and I discussed with daughter over the phone on 09/02. Son tells me that they both share POA but they do not communicate about each other and he would like updates separate to him and her.
# Recent Pseudomonas bacteruria
-Urinalysis shows 26-30 WBCs at this time
-Urine culture no growth
# Acute on chronic anemia likely upper GI bleeding from gastritis/esophagitis
-Appreciated GI consult
-Hemoglobin 7.4, downtrending from baseline of 9-10-->After blood transfusion, today hemoglobin 9.4
-Will change to oral Protonix to IV 40 mg twice a day due to concerns of GI bleed and also she might or might not take her oral medications.
-Status post enemas. GI feels we can switch back to bowel regimen. GI ordering an x-ray of the abdomen today.
-Checking iron studies
-No plan for EGD as per GI last admission--> f/u their recommendations this time in terms of any scopes or not.
-Cont to hold aspirin
-Type and screen
-1 unit of blood transfusion
# Abdominal distention secondary to constipation
-Status post enemas. GI feels we can switch back to bowel regimen. GI ordering an x-ray of the abdomen today.
-Continue senna, MiraLAX
-Continue bisacodyl suppository
-Milk of molasses enema
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
-On Keytruda
-Might need to discuss goals of care moving forward.
On palliative Keytruda--> associated cough
-Continue benzonatate
History of urinary retention
-Bladder scan protocol
-Continue tamsulosin (as outpatient they felt this was the culprit of her symptoms but this is not)
Essential hypertension
-Continue amlodipine
Paroxysmal atrial fibrillation
-Not on anticoagulation
-Continue amiodarone, metoprolol
Hyperlipidemia
-Continue statin
Dementia with behavioral disturbances/agitation
Anxiety/depression
-Continue BuSpar, duloxetine, Namenda
-Hold Seroquel due to mental status
Chronic back pain/neuropathy/amatory dysfunction/scoliosis/spinal stenosis
-Hold gabapentin due to sedation
History of CVA
-Hold aspirin
-Suspected to be cardiac bowel, not on anticoagulation due to high risk of bleeding
History of hemorrhoids/small bowel resection with subsequent ex lap secondary to dehiscence of anastomosis
Peptic ulcer disease
Hypoalbuminemia
Ex-smoker
DNR/DNI
DVT prophylaxis�SCDs
Total time spent on today's encounter was 52 minutes. More than 50% of time spent in counseling and coordination with family members.
Anticipated Discharge: > 48 hours
Subjective/Interval History
-
Date of Service: September 04, 2023
Patient seen and examined today. Afebrile today (Tmax yesterday 100.9 F). Not much information from patient due to dementia.
Objective Data
-
Labs:
Laboratory Results
09/04/23
06:05
WBC 15.1 H
Hgb 9.4 L
Hct 29.9 L
Plt Count 320
Sodium 134 L
Potassium 3.8
Chloride 100
Carbon Dioxide 29
BUN 22 H
Creatinine 0.5 L
Glucose 112 H
Calcium 8.0 L
Vital Signs:
Vital Signs
Temp Pulse Resp BP Pulse Ox
98.8 F 87 18 107/67 95
09/04/23 01:28 09/03/23 23:20 09/03/23 23:20 09/03/23 23:20 09/03/23 23:20
I&O
09/03/23 09/04/23 09/05/23
06:59 06:59 06:59
Intake Total 250 / 250 420 / 420
Balance 250 / 250 420 / 420
Review of Systems
-
Unable to obtain full review of systems at this time due to: Dementia
[2023-09-04] MEDS: CYMBALTA DELAYED RELEASE PO ×2 (08:38→08:54)
[2023-09-04] MEDS: NAMENDA 10 MG PO ×2 (08:38→19:39)
[2023-09-04] MEDS: PACERONE 200 MG PO (08:38)
[2023-09-04] MEDS: TOPROL XL 50 MG PO (08:39)
[2023-09-04] MEDS: SENOKOT-S 1 TABLET PO ×2 (08:39→19:39)
[2023-09-04] MEDS: VISBIOME PO ×3 (08:39→19:36)
[2023-09-04] MEDS: BUSPAR 10 MG PO ×2 (08:39→19:39)
[2023-09-04] MEDS: NSS (PRESERVATIVE FREE) 10 ML IV ×2 (08:40→19:39)
[2023-09-04] MEDS: PROTONIX IV 40 MG IV ×2 (08:40→19:39)
--- NOTE | 2023-09-04 10:05 | W.PN.GI.CBS2 ---
Today's Communication / Plan
-
no more enema
continue bowel regimen
Assessment / Plan
-
Patient is an 88-year-old female with history of metastatic lung cancer on palliative care on Keytruda therapy (no treatment recently due to med issues), afib not on AC, GERD, ulcer in her 30's. CVA, hemorrhoids, small bowel resection with
subsequent ex lap secondary to dehiscence of anastomosis, anxiety/depression, dementia, spinal stenosis with recent admission last week with dark stool then sepsis and PNA. She was seen by GI for heme + anemia and given medical status with patient
on palliative care and risks of procedure family wished to hold off on GI testing and was to continue PPI BID for 8 weeks. There was also concern for red man syndrome with abx use. She now returns with recurrent sepsis with worsening leukocytosis
along with worsening anemia with prior hbg 9-10 now down to 7.4. She also has concern for constipation with need for some change in laxatives at home due to some difficulty with swallowing. She had recent belching with vomiting noted when she has
constipation. She was also noted with abdominal distention. No NSAID use other than chronic ASA use. Per family pt has been on Miralax daily, senna BID and [employer] stool softener BID and gentle laxative. No hx EGD but esophagram 2019 with
no ulcer, presbyesophagus, small HH and GERD. colonoscopy years ago. daughter unsure of results.
Impression:
-recurrent sepsis/PNA
-recent pseudomonas bacteria
-worsening anemia with heme + stool
-abdominal distention with concern for constipation
-Metastatic lung CA on Keytruda on Palliative care
-leukocytosis
-recent concern for red man syndrome with vanco use
other medical problems:
-hx PUD
-HTN
-afib not on anticoagulation
-dementia
-GERD
-CVA
-axiety/depression
-spinal stenosis/chronic back pain
-History of hemorrhoids
-small bowel resection with subsequent ex lap secondary to dehiscence of anastomosis
PLAN:
- hgb stable, no bleeding
- still with some stool but not distal, can continue oral meds with dulcolax, miralax, senna for now
- would hold on any more enemas
Subjective
Subjective
Date of Service: September 04, 2023
Pt received MOM enema but hard to hold. no bleeding. xray this am with stool but not in lower colon
Objective
Data Reviewed
Laboratory Data:
Laboratory Results
09/04/23 06:05
09/04/23 06:05
Laboratory Results
Total Bilirubin 0.7 mg/dl (0.2-1.3) 09/03/23 07:59
AST 17 U/L (14-36) 09/03/23 07:59
ALT 15 U/L (0-35) 09/03/23 07:59
Alkaline Phosphatase 122 U/L (38-126) 09/03/23 07:59
Vital Signs and I&O:
Vital Signs
Temp Pulse Resp BP Pulse Ox
98.3 F 84 17 144/63 97
09/04/23 07:00 09/04/23 07:00 09/04/23 07:00 09/04/23 07:00 09/04/23 07:00
I&O
09/03/23 09/04/23 09/05/23
06:59 06:59 06:59
Intake Total 250 / 250 420 / 420
Balance 250 / 250 420 / 420
Physical Exam
Physical Exam
GI: Soft and Distended (not tense, mostly in upper abd, bs+)
Neuro: Other (dementia)
[2023-09-04 11:53] VITALS: BMI 21.7
[2023-09-04] MEDS: MIRALAX 17 GRAMS PO (13:14)
[2023-09-04] MEDS: FLOMAX PO (13:14)
--- NOTE | 2023-09-04 14:28 | PTOTSP ---
SPEECH THERAPY SWALLOW EVALUATION:
Patient presents with clinical signs of oropharyngeal dysphagia, chronic in patient known to ST department from recent admission. Oropharyngeal dysphagia likely related to history of CVA, dementia, and metastatic lung cancer. Patient with
current/repeated aspiration pneumonia. Given patient had recent VSE 08/22/23, repeat VSE is not indicated at this time given no significant change in status. However, given patient with recurrent aspiration pneumonia, recommend diet downgrade based
on results of prior VSE. Recommend cautious oral diet of IDDSI Level 4 Puree and Mildly-thick liquids. Meds crushed in puree. Aspiration precautions: 1:1 assist, only feed when alert, upright positioning, remain upright 30 minutes after
eating/drinking, d/c oral diet if signs of aspiration or decline in mental or respiratory status. Speech therapy to follow, assess diet tolerance and modify as appropriate, monitor CXR and labs, and provide continued caregiver education regarding
aspiration risks and precautions. Consider Nutrition/dietary consult given guarded p.o. acceptance and limited oral intake.
RECOMMEND:
1) IDDSI Level 4 Puree and Mildly-thick liquids
2) Meds crushed in puree
3) Aspiration precautions: 1:1 assist, only feed when alert, upright positioning, remain upright 30 minutes after eating/drinking, d/c oral diet if signs of aspiration or decline in mental or respiratory status
4) Speech therapy to follow, assess diet tolerance and modify as appropriate, monitor CXR and labs, and provide continued caregiver education regarding aspiration risks and precautions
5) Consider Nutrition/dietary consult given guarded p.o. acceptance and limited oral intake
[2023-09-04 15:00] VITALS: BP 138/72
--- NOTE | 2023-09-04 16:08 | CM ---
Pt known to [facility]
Sent referral in [facility] to resume care at d/c
Plan - home with [facility] when medically stable
[2023-09-04] MEDS: DULCOLAX 10 MG RECTAL (16:19)
[2023-09-04] MEDS: TOPROL XL PO (19:36)
[2023-09-04] MEDS: CYMBALTA DELAYED RELEASE 30 MG PO (19:39)
[2023-09-04] MEDS: CLARITIN 10 MG PO (19:41)
[2023-09-04] MEDS: LIPITOR 40 MG PO (19:41)
--- NOTE | 2023-09-04 22:12 | PTCARENOTE ---
Continuous pulse ox alarming for SaO2 86% on room air. Placed patient back on 2L O2 nasal cannula, SaO2 recovered to 93%
[2023-09-04] MEDS: NORVASC PO (22:41)
[2023-09-04] MEDS: TESSALON PERLES PO (22:41)
[2023-09-04 23:48] VITALS: BP 152/72
[2023-09-05] MEDS: MERREM 500 MG IV ×2 (03:37→10:01)
[2023-09-05] MEDS: STERILE WATER FOR INJECTION 10 ML IV ×2 (03:37→10:01)
[2023-09-05 06:21] LABS: % Basophils 0.4 % (0-2); % Eosinophils 1.1 % (0-6); % Immature Granulocytes 0.5 % (0-0.5); % Lymphocytes 4.3 % (20.5-51.1); % Monocytes 6.1 % (1.7-9.3); % Neutrophils 87.6 % (42.2-75.2); Absolute Basophils 0.1 10^3/uL (0-0.2); Absolute Eosinophils 0.2 10^3/uL (0-0.7); Absolute Immature Granulocytes 0.1 10^3/uL (0-0.05); Absolute Lymphocytes 0.6 10^3/uL (1.2-3.4); Absolute Monocytes 0.8 10^3/uL (0.1-0.6); Absolute Neutrophils 11.7 10^3/uL (1.4-6.5); Hematocrit 28.6 % (37.0-47.0); Hemoglobin 9.3 g/dL (12.0-16.0); Mean Corp Hgb Conc. 32.5 g/dL (33.0-37.0); Mean Corpuscular Hgb 25.3 pg (27.0-31.0); Mean Corpuscular Volume 77.9 fL (81.0-99.0); Mean Platelet Volume 10.2 fL (7.4-10.4); Nucleated Red Blood Cells % 0 %; Platelet Count 251 10^3/uL (130-400); Red Blood Cell Count 3.67 10^6/uL (4.20-5.40); Red Cell Dist. Width 16.4 % (11.5-14.5); White Blood Cell Count 13.4 10^3/uL (4.8-10.8)
[2023-09-05 07:00] VITALS: BP 138/66
[2023-09-05 07:32] LABS: Blood Urea Nitrogen 18 mg/dl (7-17); Calcium 8.3 mg/dl (8.4-10.2); Carbon Dioxide 24 mmol/L (22-30); Chloride 102 mmol/L (98-107); Estimated Creatinine Clearance 59 ml/min; Glucose 123 mg/dl (70-99); Potassium 3.7 mmol/L (3.5-5.1); Sodium 133 mmol/L (135-145); eGFR > 60.00
[2023-09-05] MEDS: CYMBALTA DELAYED RELEASE PO ×2 (08:09→20:32)
[2023-09-05] MEDS: BUSPAR 10 MG PO ×2 (08:10→20:37)
[2023-09-05] MEDS: TOPROL XL 50 MG PO (08:10)
[2023-09-05] MEDS: SENOKOT-S 1 TABLET PO ×2 (08:10→20:37)
[2023-09-05] MEDS: PACERONE 200 MG PO (08:10)
[2023-09-05] MEDS: PROTONIX IV 40 MG IV (08:11)
[2023-09-05] MEDS: VISBIOME PO ×2 (08:11→20:32)
[2023-09-05] MEDS: NSS (PRESERVATIVE FREE) 10 ML IV (08:11)
[2023-09-05] MEDS: NAMENDA 10 MG PO ×2 (08:14→20:37)
--- NOTE | 2023-09-05 08:18 | W.PN.GI.CBS2 ---
Today's Communication / Plan
-
continue laxative regmin while inpatient
Assessment / Plan
-
Patient is an 88-year-old female with history of metastatic lung cancer on palliative care on Keytruda therapy (no treatment recently due to med issues), afib not on AC, GERD, ulcer in her 30's. CVA, hemorrhoids, small bowel resection with
subsequent ex lap secondary to dehiscence of anastomosis, anxiety/depression, dementia, spinal stenosis with recent admission last week with dark stool then sepsis and PNA. She was seen by GI for heme + anemia and given medical status with patient
on palliative care and risks of procedure family wished to hold off on GI testing and was to continue PPI BID for 8 weeks. There was also concern for red man syndrome with abx use. She now returns with recurrent sepsis with worsening leukocytosis
along with worsening anemia with prior hbg 9-10 now down to 7.4. She also has concern for constipation with need for some change in laxatives at home due to some difficulty with swallowing. She had recent belching with vomiting noted when she has
constipation. She was also noted with abdominal distention. No NSAID use other than chronic ASA use. Per family pt has been on Miralax daily, senna BID and [employer] stool softener BID and gentle laxative. No hx EGD but esophagram 2019 with
no ulcer, presbyesophagus, small HH and GERD. colonoscopy years ago. daughter unsure of results.
Impression:
-recurrent sepsis/PNA
-recent pseudomonas bacteria
-worsening anemia with heme + stool
-abdominal distention with concern for constipation
-Metastatic lung CA on Keytruda on Palliative care
-leukocytosis
-recent concern for red man syndrome with vanco use
other medical problems:
-hx PUD
-HTN
-afib not on anticoagulation
-dementia
-GERD
-CVA
-axiety/depression
-spinal stenosis/chronic back pain
-History of hemorrhoids
-small bowel resection with subsequent ex lap secondary to dehiscence of anastomosis
PLAN:
- hgb stable, no bleeding
- multiple bms with current regimen/ enema didn't work
- pt now not much more awake than over weekend although not oriented
will sign off call with questions
Subjective
Subjective
Date of Service: September 05, 2023
Pt did have several bms with regimen. No gi bleeding
Objective
Data Reviewed
Laboratory Data:
Laboratory Results
09/05/23 06:03
09/05/23 06:03
Laboratory Results
Total Bilirubin 0.7 mg/dl (0.2-1.3) 09/03/23 07:59
AST 17 U/L (14-36) 09/03/23 07:59
ALT 15 U/L (0-35) 09/03/23 07:59
Alkaline Phosphatase 122 U/L (38-126) 09/03/23 07:59
Vital Signs and I&O:
Vital Signs
Temp Pulse Resp BP Pulse Ox
97.6 F 83 16 138/66 95
09/05/23 07:00 09/05/23 08:10 09/05/23 07:00 09/05/23 08:10 09/05/23 07:00
I&O
09/04/23 09/05/23 09/06/23
06:59 06:59 06:59
Intake Total 420 / 420 680 / 680
Balance 420 / 420 680 / 680
Physical Exam
Physical Exam
HEENT: Anicteric
GI: Soft and Non Distended (less distended)
Neuro: Non Focal (not oriented but much more awake)
[2023-09-05] MEDS: FLUSH (NSS) 1 FLUSH IV (10:02)
--- NOTE | 2023-09-05 11:30 | W.PN.HOSP.TC ---
Addendum entered and electronically signed by Vargas Sanchez DO 09/05/23 16:45:
Acute blood loss anemia with baseline chronic anemia due to malignancy
Addendum entered and electronically signed by Vargas Sanchez DO 09/05/23 16:05:
Updated daughter Marquis on the phone regarding her progress.
I mentioned that Ms. Carpenter is hospice appropriate in light of her comorbidities and dementia, recurrent hospitalizations. Encouraged daughter to think about it. All questions answered.
Original Note:
Today's Communication/Plan
-
Continue current care
PT/OT
Assessment / Plan
Assessment / Plan
Physical Exam
General: Acute and chronically ill
HEENT: NormoCephalic, Dry mucous membranes and Atraumatic
Respiratory: Clear
Cardiac: S1/S2 and Regular Rhythm; No Murmur or Rub
GI: Soft, Normal Bowel Sounds, Tender and Distended; No Organomegaly
Rectal: Deferred by Provider
Musculoskeletal: No Clubbing, No Cyanosis and No Edema
Skin: No Rash
Neuro: Alert. Disoriented. Dementia at baseline. Nonverbal due to dementia but does grimaces at times. Neurological exam unchanged from before.
Acute hypoxic respiratory insufficiency -still on 2 L nasal cannula oxygen. Wean down as able. Etiology likely due to aspiration pneumonitis. Chest x-ray shows patchy bibasilar opacities representing subsegmental atelectasis versus pneumonia.
Sepsis -presumably due to pneumonia. Leukocytosis improving. Currently afebrile. Blood and urine cultures negative. COVID-19 and influenza negative. Currently on IV meropenem.
Recent Pseudomonas bacteruria
-Urinalysis shows 26-30 WBCs at this time
-Urine culture no growth
Acute on chronic anemia likely upper GI bleeding from gastritis/esophagitis
-Appreciated GI consult
-Hemoglobin 7.4, downtrending from baseline of 9-10--> hemoglobin now stable. Transfused 1 unit of blood this admission.
-Will change to oral Protonix to IV 40 mg twice a day due to concerns of GI bleed and also she might or might not take her oral medications.
-Status post enemas. GI feels we can switch back to bowel regimen. GI ordering an x-ray of the abdomen today.
-Checking iron studies
-No plan for EGD as per GI last admission--> f/u their recommendations this time in terms of any scopes or not.
Severe constipation -moving bowels currently.
-Status post enemas. GI feels we can switch back to bowel regimen. GI ordering an x-ray of the abdomen today.
-Continue senna, MiraLAX
-Continue bisacodyl suppository
-Milk of molasses enema
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
-On Keytruda
-Might need to discuss goals of care moving forward.
On palliative Keytruda--> associated cough
-Continue benzonatate
History of urinary retention
-Bladder scan protocol
-Continue tamsulosin (as outpatient they felt this was the culprit of her symptoms but this is not)
Essential hypertension
-Continue amlodipine
Paroxysmal atrial fibrillation
-Not on anticoagulation
-Continue amiodarone, metoprolol
Hyperlipidemia
-Continue statin
Dementia with behavioral disturbances/agitation
Anxiety/depression
-Continue BuSpar, duloxetine, Namenda
-Hold Seroquel due to mental status
Chronic back pain/neuropathy/amatory dysfunction/scoliosis/spinal stenosis
-Hold gabapentin due to sedation
History of CVA
-Hold aspirin
-Suspected to be cardiac bowel, not on anticoagulation due to high risk of bleeding
History of hemorrhoids/small bowel resection with subsequent ex lap secondary to dehiscence of anastomosis
Peptic ulcer disease
Hypoalbuminemia
Ex-smoker
DNR/DNI
Dispo -Home with [facility] when medically stable.
Anticipated Discharge: Within 24 hours
Subjective/Interval History
-
Date of Service: September 05, 2023
Patient seen and examined. Looks comfortable. Speaks incoherently. Unable to do review of systems.
Objective Data
-
Labs:
Laboratory Results
09/05/23
06:03
WBC 13.4 H
Hgb 9.3 L
Hct 28.6 L
Plt Count 251 D
Sodium 133 L
Potassium 3.7
Chloride 102
Carbon Dioxide 24
BUN 18 H
Creatinine 0.5 L
Glucose 123 H
Calcium 8.3 L
Vital Signs:
Vital Signs
Temp Pulse Resp BP Pulse Ox
97.6 F 83 16 138/66 98
09/05/23 07:00 09/05/23 08:10 09/05/23 07:00 09/05/23 08:10 09/05/23 10:55
I&O
09/04/23 09/05/23 09/06/23
06:59 06:59 06:59
Intake Total 420 / 420 680 / 680
Balance 420 / 420 680 / 680
Review of Systems
-
Unable to obtain full review of systems at this time due to: Dementia and Acuity
--- NOTE | 2023-09-05 11:31 | CM ---
Case management following for d/c planning
Cont on IV abx and bowel regimen
Pt accepted by [facility] as [facility]
CM following for d/c needs
Plan - home to previous setting with HH with [facility] when medically stable
[2023-09-05] MEDS: FLOMAX PO (12:31)
--- NOTE | 2023-09-05 13:00 | W.PN.ID1 ---
Date of Service
Date of Service: September 05, 2023
Today's Communication
Narrow to Unasyn.
Assessment / Plan
Leukocytosis
- improved
Reported hypoxemia; now improved
Generalized weakness
Poor p.o. intake
REGINALD; improved
Metastatic lung cancer
Hx CVA
GERD
HTN
Dyslipidemia
Anxiety/depression
Alzheimer's disease
PAF; not on anticoagulation
Recommendations:
Cultures without growth.
White count trending down, although etiology of elevation not immediately clear.
Narrow antibiotics to Unasyn 3 g IV every 6 hours.
����������������������������������������������������������
Chief Complaint
-: Leukocytosis and Other (lethargy)
Subjective / Review of Systems
Review of Systems: No Fever
Vital Signs / Physical Exam
Vital Signs
Vital Signs
Temp Pulse Resp BP Pulse Ox
97.6 F 83 16 138/66 93
09/05/23 07:00 09/05/23 08:10 09/05/23 07:00 09/05/23 08:10 09/05/23 11:33
Physical Exam
Constitutional: Comfortable, Chronically Ill and Non-toxic
Cardiovascular: S1/S2; Negative S3/S4
Pulmonary: Non Labored; Negative Wheezes
Gastrointestinal: Soft, Non Tender, Non Distended and Normal Bowel Sounds
Extremities: Edema; Negative Cyanosis or Erythema
Neurological: Other (arousable but lethargic)
Objective Data
Lab Data
Lab Results
09/05/23 06:03
09/05/23 06:03
Estimated Creat Clear 59 ml/min 09/05/23 06:03
Lactic Acid Cancelled 09/02/23 15:00
Total Bilirubin 0.7 mg/dl (0.2-1.3) 09/03/23 07:59
AST 17 U/L (14-36) 09/03/23 07:59
ALT 15 U/L (0-35) 09/03/23 07:59
Alkaline Phosphatase 122 U/L (38-126) 09/03/23 07:59
Most recent labs reviewed.
Micro Results:
09/02/23 11:33 Blood Culture - Preliminary
Blood/Venous No Growth in 72 hours- Final report to follow
09/02/23 11:19 Blood Culture - Preliminary
Blood/Venous No Growth in 72 hours- Final report to follow
09/02/23 11:34 Urine Culture - Final
Urine NO GROWTH
09/02/23 11:33 Influenza Types A & B (JAREK) - Final
Nasal Swab Negative for Influenza A & B, NAAT
Negative results must be combined with clinical observations
and patient history.
Nucleic Acid Amplification test (NAAT)performed on the
[employer] platform.
Imaging:
09/02/2023 CXR (portable): Patchy bibasilar opacities which may represent subsegmental atelectasis or pneumonia. Mild cardiomegaly without evidence of decompensated CHF.
[2023-09-05] MEDS: MIRALAX 17 GRAMS PO (13:08)
[2023-09-05 15:00] VITALS: BP 160/76
[2023-09-05] MEDS: UNASYN IV ×2 (15:17→21:28)
--- NOTE | 2023-09-05 16:14 | PN.CDI ---
CDI
- -
CDI:
Physician Documentation Request
Admit Date: 09/02/23 15:59
Dear Doctor Daniel,
Progress notes state 'Acute on chronic anemia likely upper GI bleeding from gastritis/esophagitis'
' Likely stage IV metastatic lung nodule possibly melanoma primary- on Keytruda'
1 unit PRBC given 09/01
Based on the above, could your please further specify the acute and chronic types of anemia you are evaluating, monitoring and/or treating?
Acute blood loss anemia with baseline chronic anemia (Specify type)
Anemia of chronic disease - indicate if neoplastic disease, CKD or other
Chronic iron deficiency anemia due to blood loss
Other
Use of terms such as suspected, likely, concern for, or probable (associated with a specific diagnosis that is being evaluated, monitored, or treated as if it exists) are acceptable and can be coded in the inpatient setting, when documented at the
time of discharge.
Thank you,
Cherrie Hernandez RN, BSN
CDI Specialist
tiger text
Please use your independent medical judgment in providing your response.
[2023-09-05] MEDS: PROTONIX PO (20:32)
[2023-09-05] MEDS: TESSALON PERLES PO (20:32)
[2023-09-05] MEDS: TOPROL XL PO (20:32)
[2023-09-05] MEDS: CLARITIN 10 MG PO (20:37)
[2023-09-05] MEDS: LIPITOR 40 MG PO (20:37)
[2023-09-05] MEDS: NORVASC 10 MG PO (21:28)
--- NOTE | 2023-09-05 22:27 | VATNOTE ---
called for right forearm IV infiltrate; pt. only receiving antibiotics IV; +3-4 edema entire right hand and arm. Elevated right arm on pillow and ice applied by PCN. PCN stated pt's arm was already swollen yest when this nurse had pt. VAT to follow.
[2023-09-06 00:04] VITALS: BP 116/68
[2023-09-06] MEDS: UNASYN IV ×4 (04:30→22:16)
[2023-09-06] MEDS: PROTONIX 40 MG PO (07:36)
[2023-09-06] MEDS: BUSPAR 10 MG PO ×2 (07:36→22:16)
[2023-09-06] MEDS: SENOKOT-S 1 TABLET PO ×2 (07:36→22:15)
[2023-09-06] MEDS: PACERONE 200 MG PO (07:37)
[2023-09-06] MEDS: NAMENDA 10 MG PO ×2 (07:37→22:14)
[2023-09-06] MEDS: CYMBALTA DELAYED RELEASE PO (07:37)
[2023-09-06] MEDS: TOPROL XL PO ×2 (07:38→22:16)
[2023-09-06] MEDS: VISBIOME PO (07:38)
[2023-09-06 07:39] VITALS: BP 143/73
--- NOTE | 2023-09-06 10:29 | VATNOTE ---
Right arm infiltrate resolved, no swelling noted.
[2023-09-06 10:55] VITALS: BP 157/77; PULSE 93; O2SAT 92
[2023-09-06 11:46] VITALS: BP 157/77; PULSE 93; O2SAT 92
[2023-09-06] MEDS: FLOMAX PO (11:57)
[2023-09-06] MEDS: MIRALAX 17 GRAMS PO (12:02)
--- NOTE | 2023-09-06 12:08 | PTOTSP ---
pt currently requires total assistance for simple ADLs, functional transfers, ambulation. per daughter, pt is capable of short distances and some communication. per daughter, pt is also end stage dementia. no acute OT needs identified at this time,
recommend 24 hour care at time of d/c. will sign off.
--- NOTE | 2023-09-06 13:34 | W.PN.HOSP.TC ---
Today's Communication/Plan
-
Await CBC
Discharge planning
Assessment / Plan
Assessment / Plan
Physical Exam
General: Acute and chronically ill
HEENT: NormoCephalic, Dry mucous membranes and Atraumatic
Respiratory: Clear
Cardiac: S1/S2 and Regular Rhythm; No Murmur or Rub
GI: Soft, Normal Bowel Sounds, Tender and Distended; No Organomegaly
Rectal: Deferred by Provider
Musculoskeletal: No Clubbing, No Cyanosis and No Edema
Skin: No Rash
Neuro: Alert. Disoriented. Dementia at baseline. Incoherent speech. Neurological exam unchanged from before.
Acute hypoxic respiratory insufficiency -oxygenation adequate on room air during the day, desaturates at nighttime. Discussed with nursing. May need nocturnal oxygen on discharge. Etiology likely due to aspiration pneumonitis. Chest x-ray shows
patchy bibasilar opacities representing subsegmental atelectasis versus pneumonia.
Sepsis -presumably due to pneumonia. Leukocytosis improving. Currently afebrile. Blood and urine cultures negative. COVID-19 and influenza negative. Currently on IV Unasyn per ID.
Recent Pseudomonas bacteruria
-Urinalysis shows 26-30 WBCs at this time
-Urine culture no growth
Acute on chronic anemia likely upper GI bleeding from gastritis/esophagitis
-Appreciated GI consult
-Hemoglobin 7.4, downtrending from baseline of 9-10--> hemoglobin now stable. Transfused 1 unit of blood this admission.
-Will change to oral Protonix to IV 40 mg twice a day due to concerns of GI bleed and also she might or might not take her oral medications.
-Status post enemas. GI feels we can switch back to bowel regimen. GI ordering an x-ray of the abdomen today.
-Iron studies indeterminate during recent check in August.
-No plan for EGD as per GI last admission--> f/u their recommendations this time in terms of any scopes or not.
Severe constipation -moving bowels daily. Abdominal x-ray from 09/03 shows moderate fecal burden in the rectosigmoid colon.
-Continue senna, MiraLAX
-Continue bisacodyl suppository
-Milk of molasses enema
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
-On Keytruda
-Might need to discuss goals of care moving forward.
On palliative Keytruda--> associated cough
-Continue benzonatate
History of urinary retention
-Bladder scan protocol
-Continue tamsulosin (as outpatient they felt this was the culprit of her symptoms but this is not)
Essential hypertension
-Continue amlodipine
Paroxysmal atrial fibrillation
-Not on anticoagulation
-Continue amiodarone, metoprolol
Hyperlipidemia
-Continue statin
Dementia with behavioral disturbances/agitation
Anxiety/depression
-Continue BuSpar, duloxetine, Namenda
-Hold Seroquel due to mental status
Chronic back pain/neuropathy/amatory dysfunction/scoliosis/spinal stenosis
-Hold gabapentin due to sedation
History of CVA
-Hold aspirin
-Suspected to be cardiac bowel, not on anticoagulation due to high risk of bleeding
History of hemorrhoids/small bowel resection with subsequent ex lap secondary to dehiscence of anastomosis
Peptic ulcer disease
Hypoalbuminemia
Ex-smoker
DNR/DNI
Dispo -Home with [facility] when medically stable. I am not sure if family can manage in terms of taking care of her. May need long-term care given her dementia and comorbidities. Family to discuss with social work. Updated daughter at the bedside.
Anticipated Discharge: Within 24 hours
Subjective/Interval History
-
Date of Service: September 06, 2023
Patient seen and examined. Sleeping when I walked in but wakes up when stimulated. Speech is incoherent.
Objective Data
-
Labs:
Laboratory Results
09/06/23
13:12
WBC Pending
Hgb Pending
Hct Pending
Plt Count Pending
Vital Signs:
Vital Signs
Temp Pulse Resp BP Pulse Ox
98.9 F 84 18 143/73 94
09/06/23 07:39 09/06/23 07:39 09/06/23 07:39 09/06/23 07:39 09/06/23 10:59
I&O
09/05/23 09/06/23 09/07/23
06:59 06:59 06:59
Intake Total 680 / 680 900 / 900
Balance 680 / 680 900 / 900
Review of Systems
-
Unable to obtain full review of systems at this time due to: Dementia
--- NOTE | 2023-09-06 13:44 | W.PN.ID1 ---
Date of Service
Date of Service: September 06, 2023
Today's Communication
Continue antibiotics. Consult hospice.
Assessment / Plan
Leukocytosis
- improved
Reported hypoxemia; now improved
Generalized weakness
Poor p.o. intake
REGINALD; improved
Metastatic lung cancer
Hx CVA
GERD
HTN
Dyslipidemia
Anxiety/depression
Alzheimer's disease
PAF; not on anticoagulation
Recommendations:
Cultures without growth.
White count trending down, although etiology of elevation not immediately clear.
Continue with Unasyn 3 g IV every 6 hours.
Spoke with patient's daughter about overall prognosis. At this point in time she would like to have more information by speaking with the home hospice aide.
����������������������������������������������������������
Chief Complaint
-: Leukocytosis and Other (lethargy)
Subjective / Review of Systems
Review of Systems: No Fever
Vital Signs / Physical Exam
Vital Signs
Vital Signs
Temp Pulse Resp BP Pulse Ox
98.9 F 84 18 143/73 94
09/06/23 07:39 09/06/23 07:39 09/06/23 07:39 09/06/23 07:39 09/06/23 10:59
Physical Exam
Constitutional: No Acute Distress, Comfortable, Chronically Ill and Non-toxic
Pulmonary: Non Labored
Gastrointestinal: Non Distended
Psychological: Calm
Objective Data
Lab Data
Lab Results
09/05/23 06:03
Estimated Creat Clear 59 ml/min 09/05/23 06:03
Lactic Acid Cancelled 09/02/23 15:00
Total Bilirubin 0.7 mg/dl (0.2-1.3) 09/03/23 07:59
AST 17 U/L (14-36) 09/03/23 07:59
ALT 15 U/L (0-35) 09/03/23 07:59
Alkaline Phosphatase 122 U/L (38-126) 09/03/23 07:59
Most recent labs reviewed.
Micro Results:
09/02/23 11:33 Blood Culture - Preliminary
Blood/Venous No Growth in 4 days- Final report to follow
09/02/23 11:19 Blood Culture - Preliminary
Blood/Venous No Growth in 4 days- Final report to follow
09/02/23 11:34 Urine Culture - Final
Urine NO GROWTH
09/02/23 11:33 Influenza Types A & B (JAREK) - Final
Nasal Swab Negative for Influenza A & B, NAAT
Negative results must be combined with clinical observations
and patient history.
Nucleic Acid Amplification test (NAAT)performed on the
[employer] platform.
Imaging:
09/02/2023 CXR (portable): Patchy bibasilar opacities which may represent subsegmental atelectasis or pneumonia. Mild cardiomegaly without evidence of decompensated CHF.
--- NOTE | 2023-09-06 13:58 | HOSPNOTE ---
Addendum entered by Lisa Bolivar RN 09/06/23 14:40:
The daughter is in agreement with hospice just needs to speak with her brother. If all in agreement the plan would be home tomorrow with hospice. I will order equipment and have it delivered first thing in the am and then transport will be
needed. OOH DNR will be needed on chart. Once the daughter calls me back I will inform case management. Case management aware of plan.
Original Note:
Hospice referral received. Will talk with daughter, more information to follow.
[2023-09-06 14:24] LABS: % Basophils 0.6 % (0-2); % Eosinophils 0.7 % (0-6); % Immature Granulocytes 0.5 % (0-0.5); % Lymphocytes 5.4 % (20.5-51.1); % Monocytes 6.1 % (1.7-9.3); % Neutrophils 86.7 % (42.2-75.2); Absolute Basophils 0.1 10^3/uL (0-0.2); Absolute Eosinophils 0.1 10^3/uL (0-0.7); Absolute Immature Granulocytes 0.1 10^3/uL (0-0.05); Absolute Lymphocytes 0.8 10^3/uL (1.2-3.4); Absolute Monocytes 0.9 10^3/uL (0.1-0.6); Absolute Neutrophils 12.4 10^3/uL (1.4-6.5); Hematocrit 29.7 % (37.0-47.0); Hemoglobin 9.7 g/dL (12.0-16.0); Mean Corp Hgb Conc. 32.7 g/dL (33.0-37.0); Mean Corpuscular Hgb 25.5 pg (27.0-31.0); Mean Platelet Volume 10.1 fL (7.4-10.4); Nucleated Red Blood Cells % 0 %; Platelet Count 295 10^3/uL (130-400); Red Blood Cell Count 3.81 10^6/uL (4.20-5.40); Red Cell Dist. Width 16.5 % (11.5-14.5); White Blood Cell Count 14.4 10^3/uL (4.8-10.8)
[2023-09-06 15:00] VITALS: BP 161/76
--- NOTE | 2023-09-06 15:28 | CM ---
Spoke with Fang dgt in room .Pt is sleeping and not awaking with talking.
Fang said MD spoke with her about hospice.
Reviewed choices. She picked Hospice. Hannah Bolivar notified of referral and referral placed in care port.
As per Hospice dgt will review with brother and probably hospice in home with Hospice tomorrow.
OOH DNR will need to be signed by .
Dgt requested ambulance.
IMM reviewed dgt signed on chart.
Hannah Bolivar to deliver equipment to home.
PLAN Home with hospice
[2023-09-06] MEDS: TYLENOL 650 MG PO (22:12)
[2023-09-06] MEDS: LIPITOR 40 MG PO (22:14)
[2023-09-06] MEDS: CYMBALTA DELAYED RELEASE 30 MG PO (22:14)
[2023-09-06] MEDS: PROTONIX PO (22:15)
[2023-09-06] MEDS: CLARITIN 10 MG PO ×2 (22:15)
[2023-09-06] MEDS: NORVASC 10 MG PO (22:15)
[2023-09-06] MEDS: VISBIOME 1 CAP PO (22:15)
[2023-09-06] MEDS: TESSALON PERLES PO (22:16)
[2023-09-06] MEDS: FLUSH (NSS) 2 FLUSH IV (22:19)
[2023-09-06 23:37] VITALS: BP 147/66
[2023-09-07] MEDS: UNASYN IV ×2 (04:35→09:52)
[2023-09-07] MEDS: FLUSH (NSS) 1 FLUSH IV (04:35)
[2023-09-07 07:00] VITALS: BP 170/77
--- NOTE | 2023-09-07 08:54 | HOSPNOTE ---
Daughter is in agreement with hospice care. I will order equipment and have it delivered today. OOH DNR is needed on chart. I will inform case management and Attending.
--- NOTE | 2023-09-07 09:18 | W.PN.HOSP.TC ---
Today's Communication/Plan
-
Discharge
Assessment / Plan
Assessment / Plan
Physical Exam
General: Acute and chronically ill
HEENT: NormoCephalic, Dry mucous membranes and Atraumatic
Respiratory: Clear
Cardiac: S1/S2 and Regular Rhythm; No Murmur or Rub
GI: Soft, Normal Bowel Sounds, Tender and Distended; No Organomegaly
Rectal: Deferred by Provider
Musculoskeletal: No Clubbing, No Cyanosis and No Edema
Skin: No Rash
Neuro: Alert. Disoriented. Dementia at baseline. Incoherent speech. Neurological exam unchanged from before.
Acute hypoxic respiratory insufficiency -oxygenation adequate on room air during the day, desaturates at nighttime. Discussed with nursing. May need nocturnal oxygen on discharge. Etiology likely due to aspiration pneumonitis. Chest x-ray shows
patchy bibasilar opacities representing subsegmental atelectasis versus pneumonia.
Sepsis -presumably due to pneumonia. Leukocytosis improving. Currently afebrile. Blood and urine cultures negative. COVID-19 and influenza negative. Currently on IV Unasyn per ID. Will change to Augmentin on discharge.
Recent Pseudomonas bacteruria
-Urinalysis shows 26-30 WBCs at this time
-Urine culture no growth
Acute on chronic anemia likely upper GI bleeding from gastritis/esophagitis
-Appreciated GI consult
-Hemoglobin 7.4, downtrending from baseline of 9-10--> hemoglobin now stable. Transfused 1 unit of blood this admission.
-Will change to oral Protonix to IV 40 mg twice a day due to concerns of GI bleed and also she might or might not take her oral medications.
-Status post enemas. GI feels we can switch back to bowel regimen. GI ordering an x-ray of the abdomen today.
-Iron studies indeterminate during recent check in August.
-No plan for EGD as per GI last admission--> f/u their recommendations this time in terms of any scopes or not.
Severe constipation -moving bowels daily. Abdominal x-ray from 09/03 shows moderate fecal burden in the rectosigmoid colon.
-Continue senna, MiraLAX
-Continue bisacodyl suppository
-Milk of molasses enema
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
-On Keytruda
-Might need to discuss goals of care moving forward.
On palliative Keytruda--> associated cough
-Continue benzonatate
History of urinary retention
-Bladder scan protocol
-Continue tamsulosin (as outpatient they felt this was the culprit of her symptoms but this is not)
Essential hypertension
-Continue amlodipine
Paroxysmal atrial fibrillation
-Not on anticoagulation
-Continue amiodarone, metoprolol
Hyperlipidemia
-Continue statin
Dementia with behavioral disturbances/agitation
Anxiety/depression
-Continue BuSpar, duloxetine, Namenda
-Hold Seroquel due to mental status
Chronic back pain/neuropathy/amatory dysfunction/scoliosis/spinal stenosis
-Hold gabapentin due to sedation
History of CVA
-Hold aspirin
-Suspected to be cardiac bowel, not on anticoagulation due to high risk of bleeding
History of hemorrhoids/small bowel resection with subsequent ex lap secondary to dehiscence of anastomosis
Peptic ulcer disease
Hypoalbuminemia
Ex-smoker
DNR/DNI
Dispo -medically stable for discharge home today with [facility]N. I recommend hospice on discharge but patient's son is not in agreement. Discussed with him over the phone that he can think about it and take his time deciding. I encouraged him to speak
with his sister. Reportedly the son and daughter do not get along and therefore do not communicate. Updated hospice nurse and case management regarding discharge plans.
35 minutes spent in discharge process.
Anticipated Discharge: Today
Subjective/Interval History
-
Date of Service: September 07, 2023
Patient seen and examined. Looks comfortable. No complaints.
Objective Data
-
Vital Signs:
Vital Signs
Temp Pulse Resp BP Pulse Ox
98.3 F 83 16 147/66 97
09/06/23 23:37 09/06/23 23:37 09/06/23 23:37 09/06/23 23:37 09/06/23 23:37
I&O
09/06/23 09/07/23 09/08/23
06:59 06:59 06:59
Intake Total 900 / 900 465 / 465
Balance 900 / 900 465 / 465
Review of Systems
-
Unable to obtain full review of systems at this time due to: Dementia and Acuity
--- NOTE | 2023-09-07 09:30 | W.DS.TRANS ---
DC Summary - Registered Nurse Renal
-
Discharge Instructions:
Discharge Diagnosis/Procedures Sepsis, dementia, constipation, anemia
Diet Other diet
Additional Diets Pur�ed diet, nectar thick liquids
Activity With assistance
Driving Restrictions No driving
Bathing Restrictions None
Other Services [facility]
Instructions:
Stand-Alone Forms:
Changes to Home Medications: No
Discharge Medications:
DC Medications w/original date entered in [facility]
amiodarone 200 mg tablet 200 mg PO DAILY Arrhythmia 05/08/23
atorvastatin 40 mg tablet 40 mg PO HS High Cholesterol 05/08/23
buspirone 10 mg tablet 10 mg PO BID Mental Health/Anxiety 05/08/23
duloxetine 30 mg capsule,delayed release 30 mg PO BID Mental Health/Anxiety 05/08/23
gabapentin 300 mg capsule 300 mg PO HS Neurological Condition 05/08/23
melatonin 10 mg tablet 20 mg PO HS Sleep 05/08/23
memantine 10 mg tablet 10 mg PO BID Alzheimer's 05/08/23
methenamine hippurate 1 gram tablet 1 g PO BID Urinary Issue 05/08/23
metoprolol succinate 50 mg tablet,extended release 24 hr 50 mg PO BID Blood Pressure 05/08/23
pantoprazole 40 mg tablet,delayed release 40 mg PO BID Gastrointestinal Issue 05/08/23
quetiapine 25 mg tablet 25 mg PO DAILY@1500 PRN Mental Health/Anxiety 05/08/23
sennosides 8.6 mg-docusate sodium 50 mg tablet (Senna Plus) 2 tab-cap PO BID Constipation 05/08/23
Lactobac no.2-Bifidobac no.1-S. thermo 112.5 billion cell capsule (Visbiome) 1 cap PO BID Gastrointestinal Issue 08/20/23
amlodipine 10 mg tablet 10 mg PO HS Blood Pressure 08/20/23
aspirin 81 mg tablet,delayed release 81 mg PO DAILY Blood Clot Prevention/Tx 08/20/23
benzonatate 100 mg capsule 100 mg PO BID PRN cough 08/20/23
benzonatate 100 mg capsule 100 mg PO HS Cough 08/20/23
bisacodyl 10 mg rectal suppository 10 mg AK DAILY PRN constipation 08/20/23
fluticasone propionate 50 mcg/actuation nasal spray,suspension 1 spray intranasal BID Allergies 08/20/23
loratadine 10 mg tablet 10 mg PO HS Allergies 08/20/23
pembrolizumab 25 mg/mL intravenous solution (Keytruda) 0 mg IV Q3W ANTONEOPLASTIC 08/20/23
polyethylene glycol 3350 17 gram oral powder packet (HealthyLax) 17 g PO NOON Constipation 08/20/23
quetiapine 25 mg tablet 25 mg PO HSPRN PRN mental health/anxiety 08/20/23
quetiapine 25 mg tablet 75 mg PO HS Mental Health/Anxiety 08/20/23
sennosides 8.6 mg tablet (senna) 17.2 mg PO BID Constipation 09/02/23
tamsulosin 0.4 mg capsule (Flomax) 0.4 mg PO NOON Urinary Issue 09/02/23
amoxicillin 875 mg-potassium clavulanate 125 mg tablet 1 tab PO BID #10 tabs 09/07/23
Home Medication Changes
Pending Results: No
[2023-09-07] MEDS: PACERONE PO (09:40)
[2023-09-07] MEDS: CYMBALTA DELAYED RELEASE PO (09:41)
[2023-09-07] MEDS: BUSPAR PO (09:41)
[2023-09-07] MEDS: NAMENDA PO (09:41)
[2023-09-07] MEDS: PROTONIX PO (09:42)
[2023-09-07] MEDS: VISBIOME PO (09:42)
[2023-09-07] MEDS: TOPROL XL PO (09:42)
[2023-09-07] MEDS: SENOKOT-S PO (09:42)
--- NOTE | 2023-09-07 09:59 | CM ---
Addendum entered by Dunia Schaefer 09/07/23 11:44:
Transport arranged for 2PM. Notified pts daughter Marquis and Hospice
Addendum entered by Dunia Schaefer 09/07/23 10:38:
Spoke with Marquis, pts daughter. She reports that she and her brother have spoken regarding their mother's hospice status and agree on hospice. Pts son is contacting hospice. Contacted Dr Sanchez and Lisa from hospice and aware.
Original Note:
Received message from Dr Sanchez - pt to be d/c'ed today with [facility]. Pts son spoke with Dr Sanchez and does not wan his mother d/c'ed on hospice.
Called pts daughter Marquis [phone], to discuss d/c and [facility]. LM for daughter to return call. Waiting on return call.
--- NOTE | 2023-09-07 11:25 | W.PN.ID1 ---
Date of Service
Date of Service: September 07, 2023
Today's Communication
Transition to Augmentin at discharge.
Assessment / Plan
Leukocytosis
- improved
Reported hypoxemia; now improved
Generalized weakness
Poor p.o. intake
REGINALD; improved
Metastatic lung cancer
Hx CVA
GERD
HTN
Dyslipidemia
Anxiety/depression
Alzheimer's disease
PAF; not on anticoagulation
Recommendations:
Cultures without growth.
White count trending down, although etiology of elevation not immediately clear.
Previously spoke with patient's daughter about overall prognosis. She has met with hospice, but is declining their services right now.
Case discussed with Hospitalist.
Agree with transition to oral Augmentin at D/C.
Given overall frailty with patient along with a diagnosis of metastatic carcinoma, overall prognosis appears poor.
����������������������������������������������������������
Chief Complaint
-: Leukocytosis and Other (lethargy)
Subjective / Review of Systems
Review of Systems: No Fever
Vital Signs / Physical Exam
Vital Signs
Vital Signs
Temp Pulse Resp BP Pulse Ox
97.4 F 86 16 170/77 98
09/07/23 07:00 09/07/23 07:00 09/07/23 07:00 09/07/23 07:00 09/07/23 07:00
Physical Exam
Constitutional: Chronically Ill, Cachetic (mild) and Other (exceedingly frail in appearance)
Cardiovascular: S1/S2; Negative S3/S4
Pulmonary: Non Labored; Negative Wheezes or Rales
Gastrointestinal: Soft and Non Distended
Neurological: Awake and Alert
Psychological: Calm
Objective Data
Lab Data
Lab Results
09/06/23 14:04
09/05/23 06:03
Estimated Creat Clear 59 ml/min 09/05/23 06:03
Lactic Acid Cancelled 09/02/23 15:00
Total Bilirubin 0.7 mg/dl (0.2-1.3) 09/03/23 07:59
AST 17 U/L (14-36) 09/03/23 07:59
ALT 15 U/L (0-35) 09/03/23 07:59
Alkaline Phosphatase 122 U/L (38-126) 09/03/23 07:59
Most recent labs reviewed.
Micro Results:
09/02/23 11:19 Blood Culture - Final
Blood/Venous No Growth - Final Report
09/02/23 11:33 Blood Culture - Preliminary
Blood/Venous No Growth in 4 days- Final report to follow
09/02/23 11:34 Urine Culture - Final
Urine NO GROWTH
09/02/23 11:33 Influenza Types A & B (JAREK) - Final
Nasal Swab Negative for Influenza A & B, NAAT
Negative results must be combined with clinical observations
and patient history.
Nucleic Acid Amplification test (NAAT)performed on the
[employer] platform.
Imaging:
09/02/2023 CXR (portable): Patchy bibasilar opacities which may represent subsegmental atelectasis or pneumonia. Mild cardiomegaly without evidence of decompensated CHF.
Care Review
Plan reviewed with: Physician (Hospitalist)
[2023-09-07] MEDS: FLOMAX PO (12:33)
[2023-09-07] MEDS: MIRALAX PO (12:34)
== END 2023-09-07 14:06 | disposition home health service (06) | DRG 871 ==
LOC: 3 WEST ACU 15:59
PROVIDERS: Emergency Medicine; Hospitalist; ADMITTING PHYSICIAN Hospitalist; ATTENDING PHYSICIAN Hospitalist; CONSULT PHYSICIAN Internal Medicine; CONSULT PHYSICIAN Internal Medicine Infectious Disease; EMERGENCY PHYSICIAN Emergency Medicine; FAMILY PHYSICIAN Student in an Organized Health Care Education/Training Program
PROC: 30233N1 Transfusion of Nonautologous Red Blood Cells into Peripheral Vein, Percutaneous Approach (ICD-10-PCS; 2023-09-02)
DX: A41.9 Sepsis, unspecified organism (principal); G93.41 Metabolic encephalopathy; J69.0 Pneumonitis due to inhalation of food and vomit; K29.71 Gastritis, unspecified, with bleeding; N39.0 Urinary tract infection, site not specified; C78.00 Secondary malignant neoplasm of unspecified lung; F02.818 Dementia in other diseases classified elsewhere, unspecified severity, with other behavioral disturbance; F02.84 Dementia in other diseases classified elsewhere, unspecified severity, with anxiety; F02.83 Dementia in other diseases classified elsewhere, unspecified severity, with mood disturbance; D62 Acute posthemorrhagic anemia; C34.90 Malignant neoplasm of unspecified part of unspecified bronchus or lung; Z87.891 Personal history of nicotine dependence; Z66 Do not resuscitate; D64.9 Anemia, unspecified; K21.00 Gastro-esophageal reflux disease with esophagitis, without bleeding; I10 Essential (primary) hypertension; I48.0 Paroxysmal atrial fibrillation; K27.9 Peptic ulcer, site unspecified, unspecified as acute or chronic, without hemorrhage or perforation; E88.09 Other disorders of plasma-protein metabolism, not elsewhere classified; Z51.5 Encounter for palliative care; E78.00 Pure hypercholesterolemia, unspecified; R06.89 Other abnormalities of breathing; K59.00 Constipation, unspecified
CPT/HCPCS: 51701; 71045; 74018; 80048; 80053; 81003; 81015; 83605; 83880; 84484; 85025; 86850; 86870; 86900; 86901; 86902; 86920; 86922; 87040; 87086; 87502; 87811; 92610; 93005; 94760; 96374; 97162; 97166; 99285; P9016